=== PATIENT | female | born 1955 | race Caucasian/White ===

== ENCOUNTER 2017-12-28 06:53 | Observation (INO) | payer BC ==
[2017-12-28] MEDS ORDERED: METHYLPREDNISOLONE 125 MG INJ ONE (07:23)
[2017-12-28] MEDS ORDERED: LEVALBUTEROL 1.25 MG/3 ML NEB ONE ×3 (07:24→09:54)
--- NOTE | 2017-12-28 08:30 | RAD REPORT ---
EXAM DESCRIPTION: RAD - Chest Single View - 12/28/2017 7:48 am CLINICAL HISTORY: Wheezing, cough, shortness of breath COMPARISON: August 2015 TECHNIQUE: AP portable chest image was obtained 0744 hours . FINDINGS: Lungs are clear. No new or progressive lung parenchymal process since the 2014 study. No p eribronchial thickening seen. Heart and vasculature are normal. No measurable pleural effusion and no pneumothorax. No gross bony abnormality seen. No acute aortic findings suspected. IMPRESSION: No acute cardiopulmonary process. No significant interval changes.
[2017-12-28] MEDS ORDERED: IPRATROPIUM BROM 0.5MG/2.5ML ONE (08:51)
[2017-12-28] MEDS ORDERED: ALBUTEROL 2.5 MG/3 ML NEB SOL ONE (08:51)
--- NOTE | 2017-12-28 09:44 | ER ---
Nurse's Notes [facility] Name: Ivonne Pritchett Age: 62 yrs Sex: Female : 1955 Arrival Date: 12/28/2017 Time: 06:58 Bed 15 Private MD: Diagnosis: COPD Exacerbation;Hypoxia Presentation: 12/28 07:16 Presenting complaint: Patient states: has had "bad allergies for past week", wheezing, iw cough and SOB got worse last night, coughing up thick yellow mucous, denies fever. Transition of care: patient was not received from another setting of care. Onset of symptoms was December 21, 2017. Care prior to arrival: None. 07:16 Method Of Arrival: Ambulatory iw 07:16 Acuity: MARY 4 iw Historical: - Allergies: 07:20 NKA; iw - Home Meds: 07:20 Requip Oral [Active]; atorvastatin oral oral [Active]; irbesartan oral oral [Active]; iw Wellbutrin Oral [Active]; gabapentin oral oral [Active]; - PMHx: 07:20 Fibromyalgia; Hypertension; Restless Leg Syndrome; iw - PSHx: 07:20 Cholecystectomy; Tubal ligation; iw - Immunization history:: Adult Immunizations. - Social history:: Smoking status: Patient/guardian denies using tobacco. Screenin:29 Abuse screen: Denies threats or abuse. Denies injuries from another. Nutritional iw screening: No deficits noted. Tuberculosis screening: No symptoms or risk factors identified. Fall Risk None identified. Assessment: 07:29 General: Appears in no apparent distress. Behavior is calm, cooperative. General: iw Denies fever. Pain: Denies pain. Neuro: Level of Consciousness is awake, alert, obeys commands, Oriented to person, place, time, situation, Moves all extremities. Full function. Cardiovascular: Denies chest pain, Patient's skin is warm and dry. Respiratory: Reports shortness of breath cough that is productive, Respiratory effort is even, Respiratory pattern is regular, Breath sounds with wheezes bilaterally. GI: Abdomen is non-distended. Derm: Skin is pink, warm \\T\\ dry. normal. Musculoskeletal: Range of motion: intact in all extremities. 08:06 Reassessment: Patient appears in no apparent distress at this time. Patient and/or em family updated on plan of care and expected duration. Pain level reassessed. Patient is alert, oriented x 3, equal unlabored respirations, skin warm/dry/pink. General: Appears in no apparent distress. Behavior is calm, cooperative. Respiratory: Breath sounds with wheezes bilaterally. 09:44 Reassessment: after albuterol breathing treatment, pt ambulated to bathroom then back iw to room, became SOB with labored respirations, SpO2 dropped to 84%, Dr. Penny at bedside to assess pt, will admit for observation, new orders received, IV inserted to LAC, pt placed on 2 L NC, up to 96%. 10:50 Reassessment: Patient appears in no apparent distress at this time. Patient and/or em family updated on plan of care and expected duration. Pain level reassessed. Patient is alert, oriented x 3, equal unlabored respirations, skin warm/dry/pink. Patient states symptoms have improved. Vital Signs: 07:20 BP 151 / 90; Pulse 88; Resp 24 S; Temp 98.1(TE); Pulse Ox 93% on R/A; Weight 83.91 kg; iw Height 5 ft. 4 in. (162.56 cm); Pain 0/10; 08:01 BP 128 / 76; Pulse 75; Resp 22; Pulse Ox 97% on R/A; mh5 08:50 BP 130 / 75; Pulse 75; Resp 20; Pulse Ox 93% on R/A; em 09:42 Pulse 99; Resp 28 S; Pulse Ox 84% ; iw 09:47 Pulse 94; Resp 22 S; Pulse Ox 96% on 2 lpm NC; iw 07:20 Body Mass Index 31.75 (83.91 kg, 162.56 cm) iw Vitals: 09:42 Cardiac Rhythm Assessment Regular. iw ED Course: 06:58 Patient arrived in ED. do 07:12 Atul Penny MD is Attending Physician. kdr 07:18 Triage completed. iw 07:20 Arm band placed on. iw 07:22 Isabel Guidry, RN is Primary Nurse. iw 07:29 Patient has correct armband on for positive identification. iw 07:49 CXR XRAY In Process Unspecified. EDMS 08:29 X-ray completed. Portable x-ray completed in exam room. Patient tolerated procedure kp1 well. 09:41 Ammon Sanchez MD is Hospitalizing Provider. kdr 09:48 Inserted saline lock: 20 gauge in left antecubital area, using aseptic technique. Blood iw collected. 10:03 Initial lab(s) drawn, by ED staff, sent to lab. [facility] 11:21 No provider procedures requiring assistance completed. Patient admitted, IV remains in em place. Administered Medications: 07:28 Drug: SOLU-Medrol 125 mg Route: IM; Site: right gluteus; iw 08:48 Follow up: Response: No adverse reaction em 07:29 Drug: Xopenex (3) 1.25 mg Route: Inhalation; iw 08:48 Follow up: Response: No adverse reaction; Vomiting unchanged em 08:05 Drug: Xopenex 1.25 mg Route: Inhalation; em 08:48 Follow up: Response: No adverse reaction; Wheezing unchanged em 08:05 Drug: Xopenex 1.25 mg Route: Inhalation; em 08:49 Follow up: Response: No adverse reaction; Wheezing unchanged em 09:08 Drug: Albuterol - atroVENT (3:1) (2.5 mg - 0.5 mg) 3 ml Route: Nebulizer; em 09:54 Follow up: Response: No adverse reaction em 10:02 Drug: SOLU-Medrol 75 mg Route: IVP; Site: left antecubital; iw 11:15 Follow up: Response: No adverse reaction em 10:06 Drug: Magnesium Sulfate 1 grams Route: IVPB; Infused Over: 1 hrs; Site: left iw antecubital; 11:30 Follow up: Response: No adverse reaction; IV Status: Completed infusion; IV Intake: 50mlem 10:06 Drug: Xopenex (3) 1.25 mg Route: Inhalation; iw 11:30 Follow up: Response: No adverse reaction em Intake: 11:30 IV: 50ml; Total: 50ml. em Outcome: 09:43 Decision to Hospitalize by Provider. kdr 11:22 Admitted to Med/surg accompanied by tech, via wheelchair, room 408, with oxygen, with em chart, Report called to Che Otero RN 11:22 Condition: good 11:22 Instructed on the need for admit, Demonstrated understanding of instructions. 11:29 Patient left the ED. em Signatures: Dispatcher [employer] EDMD Atul Penny MD MD kdr Rajendra Isaac, [employer] DEVELOPER [employer] DEVELOPER em Isabel Guidry RN RN iw Ancelmo, Anna Contreras, Leeann 5 Zachary, Priya kp1 Corrections: (The following items were deleted from the chart) 07:21 07:16 Acuity: MARY 3 iw iw 08:07 08:06 Respiratory: Breath sounds with wheezes bilaterally. em em 09:48 09:44 Reassessment: after albuterol breathing treatment, pt ambulated to bathroom then iw back to room, became SOB with labored respirations, SpO2 dropped to 84%, Dr. Penny at bedside to assess pt, will admit for observation, new orders received, IV inserted to LAC iw
--- NOTE | 2017-12-28 09:44 | EDPHYS ---
Physician Documentation [facility] Name: Ivonne Pritchett Age: 62 yrs Sex: Female : 1955 Arrival Date: 12/28/2017 Time: 06:58 Bed 15 Private MD: ED Physician Atul Penny HPI: 12/28 07:29 This 62 yrs old Female presents to ER via Ambulatory with complaints of Sinus kdr Congestion, Wheezing, Breathing Difficulty. 07:29 The patient or guardian reports airway noise, cough, that is intermittent, described as kdr mild, difficulty breathing. Onset: The symptoms/episode began/occurred gradually, 1 week(s) ago, Worse last few days. Severity of symptoms: At their worst the symptoms were mild, in the emergency department the symptoms are unchanged. Modifying factors: The symptoms are alleviated by nothing, the symptoms are aggravated by exertion. Associated signs and symptoms: Pertinent positives: The patient initially had sinus congestion and post nasal drip but now she states that the cold has settled in her chest. She is having mild cough and yellow sputum with no recent fever or other associated s/s. The patient has experienced similar episodes in the past, a few times. The patient has not recently seen a physician. Historical: - Allergies: 07:20 NKA; iw - Home Meds: 07:20 Requip Oral [Active]; atorvastatin oral oral [Active]; irbesartan oral oral [Active]; iw Wellbutrin Oral [Active]; gabapentin oral oral [Active]; - PMHx: 07:20 Fibromyalgia; Hypertension; Restless Leg Syndrome; iw - PSHx: 07:20 Cholecystectomy; Tubal ligation; iw - Immunization history:: Adult Immunizations. - Social history:: Smoking status: Patient/guardian denies using tobacco. ROS: 07:29 Constitutional: Negative for fever, chills, and weight loss, Eyes: Negative for injury, kdr pain, redness, and discharge, Neck: Negative for injury, pain, and swelling, Cardiovascular: Negative for chest pain, palpitations, and edema, Abdomen/GI: Negative for abdominal pain, nausea, vomiting, diarrhea, and constipation, Back: Negative for injury and pain, : Negative for injury, bleeding, discharge, and swelling, MS/Extremity: Negative for injury and deformity, Skin: Negative for injury, rash, and discoloration, Neuro: Negative for headache, weakness, numbness, tingling, and seizure activity. Psych: Negative for depression, anxiety, suicide ideation, homicidal ideation, and hallucinations, Allergy/Immunology: Negative for hives, rash, and allergies, Endocrine: Negative for neck swelling, polydipsia, polyuria, polyphagia, and marked weight changes, Hematologic/Lymphatic: Negative for swollen nodes, abnormal bleeding, and unusual bruising. 07:29 ENT: Positive for nasal discharge, sinus pain, These ENT s/s have abated as he congestion has moved to her chest. Exam: 07:29 Constitutional: This is a well developed, well nourished patient who is awake, alert, kdr and in no acute distress. Head/Face: Normocephalic, atraumatic. Eyes: Pupils equal round and reactive to light, extra-ocular motions intact. Lids and lashes normal. Conjunctiva and sclera are non-icteric and not injected. Cornea within normal limits. Periorbital areas with no swelling, redness, or edema. ENT: Nares patent. No nasal discharge, no septal abnormalities noted. Tympanic membranes are normal and external auditory canals are clear. Oropharynx with no redness, swelling, or masses, exudates, or evidence of obstruction, uvula midline. Mucous membranes moist. Neck: Trachea midline, no thyromegaly or masses palpated, and no cervical lymphadenopathy. Supple, full range of motion without nuchal rigidity, or vertebral point tenderness. No Meningismus. Chest/axilla: Normal chest wall appearance and motion. Nontender with no deformity. No lesions are appreciated. Cardiovascular: Regular rate and rhythm with a normal S1 and S2. No gallops, murmurs, or rubs. Normal PMI, no JVD. No pulse deficits. Abdomen/GI: Soft, non-tender, with normal bowel sounds. No distension or tympany. No guarding or rebound. No evidence of tenderness throughout. Back: No spinal tenderness. No costovertebral tenderness. Full range of motion. Skin: Warm, dry with normal turgor. Normal color with no rashes, no lesions, and no evidence of cellulitis. MS/ Extremity: Pulses equal, no cyanosis. Neurovascular intact. Full, normal range of motion. Neuro: Awake and alert, GCS 15, oriented to person, place, time, and situation. Cranial nerves II-XII grossly intact. Motor strength 5/5 in all extremities. Sensory grossly intact. Cerebellar exam normal. Normal gait. Psych: Awake, alert, with orientation to person, place and time. Behavior, mood, and affect are within normal limits. 07:29 Respiratory: mild respiratory distress is noted, Respirations: labored breathing, that is mild, prolonged exhalation, shallow respirations, that is mild, tachypnea, Breath sounds: decreased breath sounds, wheezing: that is mild, is heard diffusely, Respiratory rate: 24 Vital Signs: 07:20 BP 151 / 90; Pulse 88; Resp 24 S; Temp 98.1(TE); Pulse Ox 93% on R/A; Weight 83.91 kg; iw Height 5 ft. 4 in. (162.56 cm); Pain 0/10; 08:01 BP 128 / 76; Pulse 75; Resp 22; Pulse Ox 97% on R/A; mh5 08:50 BP 130 / 75; Pulse 75; Resp 20; Pulse Ox 93% on R/A; em 09:42 Pulse 99; Resp 28 S; Pulse Ox 84% ; iw 09:47 Pulse 94; Resp 22 S; Pulse Ox 96% on 2 lpm NC; iw 07:20 Body Mass Index 31.75 (83.91 kg, 162.56 cm) iw MDM: 07:29 Data reviewed: vital signs, nurses notes, lab test result(s), radiologic studies. kdr Counseling: I had a detailed discussion with the patient and/or guardian regarding: the historical points, exam findings, and any diagnostic results supporting the discharge/admit diagnosis, radiology results, the need for outpatient follow up. 09:43 Patient medically screened. kdr 12/28 09:59 Order name: CBC with Diff kdr 12/28 09:59 Order name: Chem 7 kdr 12/28 07:18 Order name: CXR XRAY; Complete Time: 08:47 kdr Administered Medications: 07:28 Drug: SOLU-Medrol 125 mg Route: IM; Site: right gluteus; iw 08:48 Follow up: Response: No adverse reaction em 07:29 Drug: Xopenex (3) 1.25 mg Route: Inhalation; iw 08:48 Follow up: Response: No adverse reaction; Vomiting unchanged em 08:05 Drug: Xopenex 1.25 mg Route: Inhalation; em 08:48 Follow up: Response: No adverse reaction; Wheezing unchanged em 08:05 Drug: Xopenex 1.25 mg Route: Inhalation; em 08:49 Follow up: Response: No adverse reaction; Wheezing unchanged em 09:08 Drug: Albuterol - atroVENT (3:1) (2.5 mg - 0.5 mg) 3 ml Route: Nebulizer; em 09:54 Follow up: Response: No adverse reaction em 10:02 Drug: SOLU-Medrol 75 mg Route: IVP; Site: left antecubital; iw 11:15 Follow up: Response: No adverse reaction em 10:06 Drug: Magnesium Sulfate 1 grams Route: IVPB; Infused Over: 1 hrs; Site: left iw antecubital; 11:30 Follow up: Response: No adverse reaction; IV Status: Completed infusion; IV Intake: 50mlem 10:06 Drug: Xopenex (3) 1.25 mg Route: Inhalation; iw 11:30 Follow up: Response: No adverse reaction em Disposition: 12/28/17 09:43 Hospitalization ordered by Ammon Sanchez for Observation. Preliminary diagnosis are COPD Exacerbation, Hypoxia. - Bed requested for Telemetry/MedSurg (observation). - Status is Observation. em - Condition is Fair. - Problem is new. - Symptoms have improved. UTI on Admission? No Signatures: Dispatcher [employer] Atul Kramer MD MD kdr Munoz, Edgar, EMBLEM CUTTER EMBLEM CUTTER Isabel Brice RN RN iw
[2017-12-28] MEDS ORDERED: MAGNESIUM SULFATE 1 gm IVPB 1 GM/100 ML BAG IV ONE (09:55)
[2017-12-28] MEDS ORDERED: METHYLPREDNISOLONE 40 MG INJ ONE (09:55)
[2017-12-28 10:18] LABS: Potassium 3.8 mEq/L (3.6-5.0)
[2017-12-28 10:36] LABS: Absolute Lymphocytes (CBC) 1.7 K/uL (0.7-4.9); Absolute Monocytes 0.2 K/uL (0.1-1.3); Absolute Neutrophil 6.9 K/uL (1.8-8.0); Basophils % 1.1 % (0-1.3); Eosinophils % 5.6 % (0-4.4); Hematocrit 43.2 % (36.0-45.0); Lymphocytes % 17.8 % (15.3-44.8); MCH 29.6 pg (27.0-35.0); MCV 89.3 fL (80-100); Monocytes % 2.4 % (3.3-12.3); RBC Red Blood Cell Count 4.84 M/uL (3.86-4.86)
[2017-12-28] MEDS ORDERED: ONDANSETRON 4 MG/2 ML VIAL IV PRN (11:47)
[2017-12-28] MEDS ORDERED: ACETAMINOPHEN 500 MG TAB PO PRN (11:47)
[2017-12-28 12:00] VITALS: BMI 31.7
[2017-12-28] MEDS: IPRATROPIUM BROM 0.5MG/2.5ML NEB SCH ×2 (13:15→19:53)
[2017-12-28] MEDS: ALBUTEROL 2.5 MG/3 ML NEB SOL NEB SCH ×2 (13:15→19:53)
[2017-12-28] MEDS ORDERED: BENZONATATE 100 MG CAP PO PRN (15:41)
[2017-12-28] MEDS ORDERED: Levofloxacin 750mg IV 750 MG/150 ML BAG IV SCH (16:00)
[2017-12-28] MEDS ORDERED: ENOXAPARIN 40 MG/0.4 ML SQ SCH (17:00)
[2017-12-28] MEDS: METHYLPREDNISOLONE 40 MG INJ IV SCH ×2 (18:10→23:33)
[2017-12-28] MEDS: DULERA 100/5 (MOMETASONE/FORMOTEROL) INHALER IH SCH (20:49)
[2017-12-28] MEDS ORDERED: ATORVASTATIN 20 MG TAB PO SCH (21:00)
[2017-12-28] MEDS ORDERED: GABAPENTIN 300 MG CAP PO SCH (21:00)
--- NOTE | 2017-12-28 22:39 | HP ---
Date of Admission: 12/28/2017 Primary Care Physician: Stew Leyva M.D. Consultants: Yevgeniy Patton M.D., Pulmonology. Chief Complaint: Shortness of breath. Code Status: Full. History Of Present Illness: The patient is a 62-year-old female with past medical history of fibromy algia, restless legs syndrome, hypertension, dyslipidemia, COPD, who was in her usual state of health until 3 weeks prior to admission when the patient had sinus-type infection with postnasal drip and s ubsequently had worsening shortness of breath, which was progressive, moderate. The patient denies a ny fevers, chills, or any ill contacts. She does report some cough with scant clear sputum productio n. The patient states that her inhaler was not helping her and due to worsening of her symptoms, cam e in to the ER for further evaluation. Her symptoms are aggravated by exertion, improved with rest. Upon arrival, her vital signs were stable. However, with exertion, she was hypoxic around 84%. Lab work revealed normal WBC count. Her chest x-ray showed no acute cardiopulmonary process. The patie nt was given breathing treatments and then referred for admission. The patient was seen in the ER. She was awake, alert, oriented x3, in some mild respiratory distress. Past Medical History: Hypertension, dyslipidemia, fibromyalgia, restless legs syndrome, COPD. Past Surgical History: Cholecystectomy, tubal ligation. Allergies: NO KNOWN DRUG ALLERGIES. Medications: Reviewed. Family History: The patient's mom was diabetic, had a stroke, at age of 61. Father of zach g cancer at age of 62. Three brothers and one sister in [facility]. No history of premature wesley nary artery disease in the immediate family. Social History: The patient is , does have significant other. Smoked for about 11 years. Q uit at age of 26, has not smoked since. Drinks alcohol socially. Works at [employer]. Has 1 son and 2 daughters. Denies any illicit drug use. Does not require any assistive ambulatory devices. Review of Systems: An 11-point system reviewed, negative except as per HPI. Physical Examination: Vital Signs: Temperature 98.1, heart rate 88, blood pressure 151/90, respirations 24, O2 93% on 2 L via nasal cannula. General: Awake, alert, oriented x3, in some mild distress. Elderly female, somewhat ill-appearing, obese, BMI 31. HEENT: Normocephalic and atraumatic. PERRLA. EOMI. Moist mucous membranes. Oroph arynx is clear. Conjunctivae are anicteric. Neck: Supple. No JVD. Trachea midline. CV: S1, S2. Peripheral pulses are present bilaterally. No murmurs and regular rate and rhythm. Respiratory: Diminished breath sounds. Wheezing heard throughout. The patient is slightly tachypne ic. Use of accessory muscles is present. Gastrointestinal: Abdomen is soft, nontender and nondistended. Positive bowel sounds. No guarding or rigidity. No palpable masses. Extremities: No clubbing, cyanosis, or edema. No calf tenderness. Neuro: Cranial nerves 2 through 12 intact grossly. No focal neurological deficit. Strength is 5/5 bilateral lower extremities. Sensation intact to light touch. Skin: No rashes. Normal skin turgor. Psych: Mood is okay. Affect is full. Insight and judgment are good. Laboratory Data: Sodium 139, potassium 3.8, chloride 106, CO2 27, BUN 9, creatinine 0.81, glucose 13 8, calcium 8.8. WBC 9.5, H and H 14.3 and 43.2, platelets 238, neutrophils 73%. Chest x-ray, person ally reviewed shows no acute cardiopulmonary process. Assessment And Plan: A 62-year-old female with: 1.Acute chronic obstructive pulmonary disease exacerbation with bronchitis. We will continue with b reathing treatments, IV steroids. We will consult Pulmonology. We will place on empiric antibiotics . We will obtain blood cultures, sputum cultures. 2.Obesity, BMI 31.8, counseled. 3.Essential hypertension. We will resume home medications as appropriate. 4.Dyslipidemia. 5.Restless legs syndrome. 6.Fibromyalgia. 7.Gastrointestinal and deep venous thrombosis prophylaxis with proton pump inhibitor and Lovenox. Plan: Admit the patient to Med-Surg, [facility] as observation. MIGDALIA Voice ID: [id number]
[2017-12-29] MEDS: IPRATROPIUM BROM 0.5MG/2.5ML NEB SCH ×3 (01:25→13:55)
[2017-12-29] MEDS: ALBUTEROL 2.5 MG/3 ML NEB SOL NEB SCH ×3 (01:25→13:55)
[2017-12-29] MEDS: METHYLPREDNISOLONE 40 MG INJ IV SCH (05:42)
[2017-12-29 06:01] LABS: Potassium 4.5 mEq/L (3.6-5.0)
[2017-12-29 06:24] LABS: Absolute Monocytes 0.2 K/uL (0.1-1.3); Absolute Neutrophil 13.8 K/uL (1.8-8.0); Basophils % 0.1 % (0-1.3); Hematocrit 39.9 % (36.0-45.0); Lymphocytes % 6.8 % (15.3-44.8); MCH 29.1 pg (27.0-35.0); MCV 88.9 fL (80-100); Monocytes % 1.6 % (3.3-12.3); RBC Red Blood Cell Count 4.48 M/uL (3.86-4.86)
[2017-12-29 08:40] LABS: Platelet Estimate ADEQ
[2017-12-29] MEDS: DULERA 100/5 (MOMETASONE/FORMOTEROL) INHALER IH SCH (08:43)
[2017-12-29] MEDS ORDERED: IRBESARTAN 150 MG TAB PO SCH (09:00)
[2017-12-29 09:07] LABS: Blood Morphology Comment NOT SEEN (NOT SEEN)
--- NOTE | 2017-12-29 09:52 | P.DS ---
Admission Date: 12/28/17 (Hospitalist) Discharge Date: 12/29/17 Disposition: ROUTINE DISCHARGE Discharge Condition: FAIR Brief History of Present Illness: Patient is 62 years of age admitted with shortness of breath for the past week she uses inhaler on an intermittent basis quit smoking at the age of 26 patient was wheezing short short of breath Hospital Course: Patient did well during the course of the stay complained of persistent coughing spells chest x-ray clear labs all unremarkable to be discharged home on a bronchodilator may have obstructive airways disease most likely asthma no significant history of smoking chest x-ray clear At the time of discharge vital signs all stable she was alert responsive oriented cooperative chest shows some bilateral rhonchi cardiovascular small stools normal abdomen soft extremities no edema Vital Signs/Physical Exam: Temp Pulse Resp BP Pulse Ox 97.4 F 88 18 141/72 H 96 12/29/17 08:00 12/29/17 08:42 12/29/17 08:00 12/29/17 08:42 12/29/17 08:00 Laboratory Data at Discharge: WBC 15.0 K/uL (4.3-10.9) H D 12/29/17 05:17 Hgb 13.0 g/dL (12.0-15.0) 12/29/17 05:17 Hct 39.9 % (36.0-45.0) 12/29/17 05:17 Plt Count 345 K/uL (152-406) 12/29/17 05:17 Sodium 136 mEq/L (135-145) 12/29/17 05:17 Potassium 4.5 mEq/L (3.6-5.0) 12/29/17 05:17 BUN 13 mg/dL (6-20) 12/29/17 05:17 Creatinine 0.76 mg/dL (0.44-1.00) 12/29/17 05:17 Glucose 170 mg/dL (65-120) H 12/29/17 05:17 Home Medications: Atorvastatin Calcium [Lipitor*] 20 mg PO BEDTIME 09/17/13 Bupropion HCl [Wellbutrin*] 12/28/17 Gabapentin 600 mg PO BEDTIME 12/28/17 Irbesartan [Avapro] 75 mg PO DAILY 12/28/17 Benzonatate [Tessalon Perle] 100 mg PO TID PRN #21 cap 12/29/17 Mometasone/Formoterol [Dulera 100 Mcg/5 Mcg Inhaler] 2 puff IH BID #1 inhaler Prednisone [Deltasone*] 10 mg PO BID #14 tab 12/29/17 New Medications: Benzonatate [Tessalon Perle] 100 mg PO TID PRN #21 cap PRN Reason: Cough Mometasone/Formoterol [Dulera 100 Mcg/5 Mcg Inhaler] 2 puff IH BID #1 inhaler Prednisone [Deltasone*] 10 mg PO BID #14 tab Patient Discharge Instructions: Patient can be discharged home if his room air sat is greater than 88% she is to follow up with me as an outpatient please give patient these sample of the Dulera that she was prescribed in the hospital and fax the prescriptions to the pharmacy Diet: Regular Activity: Ad darrel
[2017-12-29 09:54] VITALS: O2SAT 93
[2017-12-29 15:56] VITALS: BP 133/63; TEMP 98.2
[2017-12-29] MEDS ORDERED: METHYLPREDNISOLONE 40 MG INJ IV SCH (17:00)
== END 2017-12-29 16:02 | disposition home or self-care (01) ==
LOC: ER 06:53 → ERHOLD 09:56 → 4TH 11:21
PROVIDERS: ADMIT Family Medicine; ATTEND Family Medicine
DX: J44.0 Chronic obstructive pulmonary disease with (acute) lower respiratory infection (principal); J20.9 Acute bronchitis, unspecified; J44.1 Chronic obstructive pulmonary disease with (acute) exacerbation; M79.7 Fibromyalgia; G25.81 Restless legs syndrome; I10 Essential (primary) hypertension; E78.5 Hyperlipidemia, unspecified; J44.9 Chronic obstructive pulmonary disease, unspecified; Z87.891 Personal history of nicotine dependence
CPT/HCPCS: 36415; 71045; 80048; 85025; 94640; 96365; 96372; 96375; 99285; G0378; J1650; J2920; J2930; J3475; J7606

== ENCOUNTER 2019-05-16 06:19 | Observation (INO) | payer BC ==
[2019-05-16] MEDS ORDERED: METHYLPREDNISOLONE 125 MG INJ ONE (06:27)
[2019-05-16] MEDS ORDERED: NA CHLORIDE 0.9% 1,000 ML ONE (06:28)
[2019-05-16] MEDS ORDERED: IPRATROPIUM BROM 0.5MG/2.5ML ONE ×2 (06:28→07:38)
[2019-05-16] MEDS ORDERED: ALBUTEROL 2.5 MG/3 ML NEB SOL ONE ×2 (06:28→07:38)
[2019-05-16] MEDS ORDERED: MAGNESIUM SULFATE 1 gm IVPB 1 GM/100 ML BAG IV ONE ×2 (06:31→08:21)
[2019-05-16] MEDS ORDERED: LEVALBUTEROL 0.63 MG/3 ML NEB ONE (06:31)
[2019-05-16 06:46] LABS: Absolute Lymphocytes (CBC) 2.3 K/uL (0.7-4.9); Basophils % 0.8 % (0-1.3); Hematocrit 43.3 % (36.0-45.0); Lymphocytes % 22.8 % (15.3-44.8); MPV 8.8 fL (7.6-11.3); RBC Red Blood Cell Count 4.85 M/uL (3.86-4.86)
[2019-05-16 07:04] LABS: BUN Blood Urea Nitrogen 10 mg/dL (7-18); Bicarbonate 30 mmol/L (21-32); Glucose Level 109 mg/dL (74-106); NT PRO-BNP 220 pg/mL (<125); Potassium 4.2 mmol/L (3.5-5.1); Sodium Level 143 mmol/L (136-145); Troponin (Emerg Dept Use Only) < 0.02 ng/mL (0.0-0.045)
--- NOTE | 2019-05-16 08:16 | ER ---
Nurse's Notes [facility] Name: Ivonne Pritchett Age: 63 yrs Sex: Female : 1955 Arrival Date: 05/16/2019 Time: 06:26 Bed 18 Private MD: Diagnosis: Chronic obstructive pulmonary disease with (acute) exacerbation;Hypoxemia Presentation: 05/16 06:30 Presenting complaint: Patient states: she started having difficulty breathing which has bb gotten worse. Transition of care: patient was not received from another setting of care. Onset of symptoms was May 15, 2019. Risk Assessment: Do you want to hurt yourself or someone else? Patient reports no desire to harm self or others. Initial Sepsis Screen: Does the patient meet any 2 criteria? No. Patient's initial sepsis screen is negative. Does the patient have a suspected source of infection? No. Patient's initial sepsis screen is negative. Care prior to arrival: None. 06:30 Method Of Arrival: Ambulatory bb 06:30 Acuity: MARY 2 bb Triage Assessment: 06:43 General: Appears distressed, Behavior is calm, cooperative. Pain: Denies pain. Neuro: bb Level of Consciousness is awake, alert, obeys commands, Oriented to person, place, time, situation. Respiratory: Respiratory effort is labored, Breath sounds with wheezes bilaterally. Historical: - Allergies: 06:43 NKA; bb - Home Meds: 06:47 amlodipine 2.5 mg tab 1 tab once daily [Active]; atorvastatin Oral [Active]; Cymbalta cc3 60 mg Oral cpDR 1 cap once daily [Active]; gabapentin 600 mg Oral tab 1 tab nightly [Active]; gabapentin Oral [Active]; irbesartan Oral [Active]; Requip Oral [Active]; Wellbutrin Oral [Active]; - PMHx: 06:43 Fibromyalgia; Hypertension; restless leg syndrome; bb - PSHx: 06:43 Tubal ligation; Cholecystectomy; bb - Immunization history:: Adult Immunizations up to date. - Social history:: Smoking status: Patient/guardian denies using tobacco. - Family history:: not pertinent. - Ebola Screening: : No symptoms or risks identified at this time. - Hospitalizations: : No recent hospitalization is reported. Screenin:45 Abuse screen: Denies threats or abuse. Denies injuries from another. Nutritional cc3 screening: No deficits noted. Tuberculosis screening: No symptoms or risk factors identified. Fall Risk Ambulatory Aid- None/Bed Rest/Nurse Assist (0 pts). Gait- Normal/Bed Rest/Wheelchair (0 pts) Mental Status- Oriented to own ability (0 pts). Assessment: 06:30 General: Appears distressed, uncomfortable, Behavior is calm, cooperative, appropriate cc3 for age. Pain: Denies pain. Neuro: Level of Consciousness is awake, alert, obeys commands, Oriented to person, place, time, situation, Appropriate for age Professional Athlete are equal bilaterally Moves all extremities. Full function Speech is normal, Facial symmetry appears normal, Pupils are PERRLA, Intact. Cardiovascular: Heart tones S1 S2 present Capillary refill < 3 seconds Patient's skin is warm and dry. Rhythm is sinus rhythm. Respiratory: Airway is patent Respiratory effort is labored, Respiratory pattern is regular, symmetrical, Breath sounds with wheezes bilaterally. GI: Abdomen is round non-distended. : No signs and/or symptoms were reported regarding the genitourinary system. EENT: No signs and/or symptoms were reported regarding the EENT system. Derm: Skin is intact, is healthy with good turgor, Skin is pink, warm \T\ dry. normal. Musculoskeletal: Circulation, motion, and sensation intact. Range of motion: intact in all extremities. 07:00 Reassessment: Patient appears in no apparent distress at this time. Patient and/or em family updated on plan of care and expected duration. Pain level reassessed. Patient is alert, oriented x 3, equal unlabored respirations, skin warm/dry/pink. Patient states feeling better. Patient states symptoms have improved. 07:15 Reassessment: Dr. Franco at bedside, ordered to d/c bipap and trial pt on RA, remains em 93-95% on RA while speaking, pt request to go home, Dr. Franco recommends being admitted, will continue to monitor. 07:40 Reassessment: pt ambulated to restroom, returned with SOB and SPO2 86% RA, breathing em treatment initiated, SPO2 97% with neb. mask. 08:25 Reassessment: Patient appears in no apparent distress at this time. Dr. Dietz at em bedside. 09:20 Reassessment: Patient appears in no apparent distress at this time. Patient and/or em family updated on plan of care and expected duration. Pain level reassessed. Patient states symptoms have improved. Vital Signs: 06:30 BP 193 / 124; Pulse 98; Resp 24 S; Temp 98.2(O); Pulse Ox 86% on R/A; Weight 74.84 kg bb (R); Height 5 ft. 4 in. (162.56 cm) (R); Pain 0/10; 06:45 BP 145 / 85; Pulse 97; Resp 20 S; Pulse Ox 99% on BiPAP; bb 07:00 BP 113 / 82; Pulse 91; Resp 22 S; Pulse Ox 98% on R/A; Pain 0/10; em 07:59 BP 127 / 92; Pulse 79; Resp 18; Pulse Ox 100% on Nebulizer Mask; em 09:00 BP 137 / 73; Pulse 93; Resp 24; Pulse Ox 93% on 2 lpm NC; Pain 0/10; em 10:17 BP 138 / 72; Pulse 88; Resp 22; Pulse Ox 93% on 2 lpm NC; Pain 0/10; em 06:30 Body Mass Index 28.32 (74.84 kg, 162.56 cm) ED Course: 06:26 Patient arrived in ED. bb 06:29 Mabel Benton FNP-C [facility]. snw 06:29 Vladimir Franco MD is Attending Physician. snw 06:30 Arm band placed on Patient placed in an exam room, on a stretcher, on oxygen, on bb school bus monitor, on pulse oximetry, respiratory paged for Bipap. 06:30 Inserted saline lock: 20 gauge in right antecubital area, using aseptic technique. cc3 Blood collected. inserted by [facility]. 06:42 Triage completed. bb 06:45 Arm band placed on right wrist. EKG completed in triage. Results shown to MD. cc3 06:45 Patient has correct armband on for positive identification. Placed in gown. Bed in low cc3 position. Call light in reach. Side rails up X2. desk monitor on. Pulse ox on. NIBP on. 06:58 Rajendra Isaac, CHRISSIE is Primary Nurse. em 07:00 Report given to CHRISSIE Drew. cc3 07:10 XRAY CXR (1 view) In Process Unspecified. EDMS 07:40 Attending Physician role handed off by Vladimir Franco MD selena 07:40 Librado Dover MD is Attending Physician. selena 08:12 Neli Lowry MD is Hospitalizing Provider. sleena 08:13 Hospitalizing Provider role handed off by Neli Lowry MD selena 08:13 Yevgeniy Patton MD is Hospitalizing Provider. selena 10:16 No provider procedures requiring assistance completed. Patient admitted, IV remains in em place. Administered Medications: 06:30 Drug: SOLU-Medrol 125 mg Route: IVP; Site: right antecubital; bb 07:00 Follow up: Response: No adverse reaction em 06:30 Drug: Xopenex (3) 1.25 mg Route: Inhalation; bb 07:00 Follow up: Response: No adverse reaction; Marked relief of symptoms em 06:30 Drug: AtroVENT Aerosol 0.5 mg Route: Inhalation; bb 07:00 Follow up: Response: No adverse reaction; Marked relief of symptoms em 06:30 Drug: NS 0.9% 500 ml Route: IV; Rate: bolus; Site: right antecubital; bb 07:15 Follow up: IV Status: Completed infusion; IV Intake: 500ml em 06:35 Drug: Magnesium Sulfate 1 grams Route: IVPB; Infused Over: 1 hrs; Site: right bb antecubital; 07:33 Follow up: Response: No adverse reaction; IV Status: Completed infusion; IV Intake: em 100ml 07:45 Drug: Xopenex 1.25 mg Route: Inhalation; em 07:45 Drug: AtroVENT Aerosol 0.5 mg Route: Inhalation; em 08:20 Follow up: Response: No adverse reaction; Marked relief of symptoms em 08:32 Drug: Decadron - Dexamethasone 10 mg Route: IVP; Site: right antecubital; aa5 09:21 Follow up: Response: No adverse reaction em 08:34 Drug: levofloxacin 500 mg Volume: 100 ml; Route: IVPB; Infused Over: 60 mins; Site: em right antecubital; 10:21 Follow up: Response: No adverse reaction; IV Status: Completed infusion; IV Intake: em 100ml 08:34 Drug: Xopenex 2.5 mg Route: Inhalation; em 08:50 Follow up: Response: No adverse reaction; Marked relief of symptoms em 08:34 Drug: Magnesium Sulfate 1 grams Route: IVPB; Infused Over: 1 hrs; Site: right em antecubital; 10:21 Follow up: Response: No adverse reaction; IV Status: Completed infusion; IV Intake: em 100ml Intake: 07:15 IV: 500ml; Total: 500ml. em 07:33 IV: 100ml; Total: 600ml. em 10:21 IV: 100ml; Total: 700ml. em 10:21 IV: 100ml; Total: 800ml. em Outcome: 08:13 Decision to Hospitalize by Provider. [facility] 10:16 Admitted to Tele accompanied by tech, via stretcher, room 410, with oxygen, with chart, em Report called to SONIDO Hernández 10:17 Condition: good em 10:17 Instructed on the need for admit, Demonstrated understanding of instructions. 10:24 Patient left the ED. em Signatures: Dispatcher [employer] EDLibrado Valdivia MD MD cha Therrien, Shelly, ORAL AND MAXILLOFACIAL SURGEON-C ORAL AND MAXILLOFACIAL SURGEON-Csnw Rajendra Isaac, PULL THROUGH HOOKER PULL THROUGH HOOKER em Katelin Gerard RN RN bb Nieto, Roman, MD MD rn Calderon, Audri, RN RN aa5 Michelle Moulton cc3 Corrections: (The following items were deleted from the chart) 06:47 06:43 Home Meds: Unable to obtain; estella cc3 10:17 10:16 Admitted to Tele accompanied by tech, via stretcher, room 410, with oxygen, with em chart, Report called to SONIDO Hernández em
--- NOTE | 2019-05-16 08:19 | EDPHYS ---
Physician Documentation [facility] Name: Ivonne Pritchett Age: 63 yrs Sex: Female : 1955 Arrival Date: 05/16/2019 Time: 06:26 Bed 18 Private MD: ED Physician Librado Dover HPI: 05/16 06:33 This 63 yrs old Female presents to ER via Unassigned with complaints of sob. rn 06:33 The patient has shortness of breath at rest. Onset: The symptoms/episode began/occurred rn yesterday. Duration: The symptoms are continuous. The patient's shortness of breath is aggravated by coughing, exertion, light activity, talking, walking. Associated signs and symptoms: Pertinent positives: non-productive cough, Pertinent negatives: fever, hemoptysis. Severity of symptoms: At their worst the symptoms were moderate in the emergency department the symptoms are unchanged. The patient has experienced similar episodes in the past. Patient has COPD, increased sob and cough since yesterday, at work they have been working on floors and thinks got irritated. + wheezing. NO hemoptysis. No hx of dvt/PE. Not on oxygen at home. S/p abx for pneumonia 1 month ago. . Historical: - Allergies: 06:43 NKA; bb - Home Meds: 06:47 amlodipine 2.5 mg tab 1 tab once daily [Active]; atorvastatin Oral [Active]; Cymbalta cc3 60 mg Oral cpDR 1 cap once daily [Active]; gabapentin 600 mg Oral tab 1 tab nightly [Active]; gabapentin Oral [Active]; irbesartan Oral [Active]; Requip Oral [Active]; Wellbutrin Oral [Active]; - PMHx: 06:43 Fibromyalgia; Hypertension; restless leg syndrome; bb - PSHx: 06:43 Tubal ligation; Cholecystectomy; bb - Immunization history:: Adult Immunizations up to date. - Social history:: Smoking status: Patient/guardian denies using tobacco. - Family history:: not pertinent. - Ebola Screening: : No symptoms or risks identified at this time. - Hospitalizations: : No recent hospitalization is reported. ROS: 06:33 Constitutional: Negative for fever, chills, and weight loss, Eyes: Negative for injury, rn pain, redness, and discharge, Neck: Negative for injury, pain, and swelling, Cardiovascular: Negative for chest pain, palpitations, and edema, Respiratory: Negative for pleuritic chest pain Abdomen/GI: Negative for abdominal pain, nausea, vomiting, diarrhea, and constipation, MS/Extremity: Negative for injury and deformity, Skin: Negative for injury, rash, and discoloration, Neuro: Negative for headache, weakness, numbness, tingling, and seizure. Exam: 06:33 Constitutional: This is a well developed, well nourished patient who is awake, alert, rn moderate respiratory distress. Head/Face: Normocephalic, atraumatic. Eyes: Pupils equal round and reactive to light, extra-ocular motions intact. ENT: Dry MM, no stridor Cardiovascular: Tachycardic, regular, No pulse deficits. Respiratory: + bilateral diffuse wheezing, speaking 3 word sentences, labored Abdomen/GI: soft, non-tender Skin: Warm, dry MS/ Extremity: Pulses equal, no cyanosis. Neurovascular intact. Full, normal range of motion. Equal circumference. Neuro: Awake and alert, GCS 15, oriented to person, place, time, and situation. Vital Signs: 06:30 BP 193 / 124; Pulse 98; Resp 24 S; Temp 98.2(O); Pulse Ox 86% on R/A; Weight 74.84 kg bb (R); Height 5 ft. 4 in. (162.56 cm) (R); Pain 0/10; 06:45 BP 145 / 85; Pulse 97; Resp 20 S; Pulse Ox 99% on BiPAP; bb 07:00 BP 113 / 82; Pulse 91; Resp 22 S; Pulse Ox 98% on R/A; Pain 0/10; em 07:59 BP 127 / 92; Pulse 79; Resp 18; Pulse Ox 100% on Nebulizer Mask; em 09:00 BP 137 / 73; Pulse 93; Resp 24; Pulse Ox 93% on 2 lpm NC; Pain 0/10; em 10:17 BP 138 / 72; Pulse 88; Resp 22; Pulse Ox 93% on 2 lpm NC; Pain 0/10; em 06:30 Body Mass Index 28.32 (74.84 kg, 162.56 cm) MDM: 06:38 Patient medically screened. rn 07:07 Differential diagnosis: Chronic Obstructive Pulmonary Disease Myocardial Infarction rn pneumonia, Pneumothorax pulmonary edema, Pulmonary Embolism. Data reviewed: vital signs, nurses notes, lab test result(s), EKG, radiologic studies, plain films, and as a result, I will admit patient. Counseling: I had a detailed discussion with the patient and/or guardian regarding: the historical points, exam findings, and any diagnostic results supporting the discharge/admit diagnosis, lab results, radiology results, the need for further work-up and treatment in the hospital. Response to treatment: the patient's symptoms have markedly improved after treatment, and as a result, I will admit patient. Admission orders: after a detailed discussion of the patient's condition and case, the admit orders are written by me. ED course: Pt hypoxic, O2 sat 84% upon arrival, not on home O2, will admit for COPD exacerbation and oxygen requirement, improved on Bipap.. 07:07 ED course: Pt does not want to be admitted at this point, requests longer observation rn period in ER given her insurance might not cover short stay in hospital. Will give another breathing treatment and reassess, will pass onto Dr. Dover.. 05/16 06:31 Order name: Blood Culture Adult (2) rn 05/16 06:31 Order name: BMP; Complete Time: 07:06 rn 05/16 06:31 Order name: CBC with Diff; Complete Time: 06:56 rn 05/16 06:31 Order name: D-Dimer; Complete Time: 07:06 rn 05/16 06:31 Order name: NT PRO-BNP; Complete Time: 07:06 rn 05/16 06:31 Order name: Troponin (emerg Dept Use Only); Complete Time: 07:06 rn 05/16 06:31 Order name: BIPAP rn 05/16 06:31 Order name: XRAY CXR (1 view) rn 05/16 09:29 Order name: Basic Metabolic Panel EDOH 05/16 09:29 Order name: Basic Metabolic Panel EDOH 05/16 09:29 Order name: CBC with Automated Diff EDOH 05/16 09:29 Order name: CBC with Automated Diff EDOH 05/16 09:31 Order name: ABG Arterial Blood Gas EDOH 05/16 06:31 Order name: Call RT; Complete Time: 07:08 rn 05/16 06:31 Order name: EKG; Complete Time: 06:33 rn 05/16 06:31 Order name: Cardiac monitoring; Complete Time: 06:41 rn 05/16 06:31 Order name: EKG - Nurse/Tech; Complete Time: 06:41 rn 05/16 06:31 Order name: IV Saline Lock; Complete Time: 06:41 rn 05/16 09:29 Order name: Regular EDMS 05/16 06:31 Order name: Labs collected and sent; Complete Time: 06:41 rn 05/16 06:31 Order name: O2 Per Protocol; Complete Time: 06:41 rn 05/16 06:31 Order name: O2 Sat Monitoring; Complete Time: 06:41 rn Administered Medications: 06:30 Drug: SOLU-Medrol 125 mg Route: IVP; Site: right antecubital; bb 07:00 Follow up: Response: No adverse reaction em 06:30 Drug: Xopenex (3) 1.25 mg Route: Inhalation; bb 07:00 Follow up: Response: No adverse reaction; Marked relief of symptoms em 06:30 Drug: AtroVENT Aerosol 0.5 mg Route: Inhalation; bb 07:00 Follow up: Response: No adverse reaction; Marked relief of symptoms em 06:30 Drug: NS 0.9% 500 ml Route: IV; Rate: bolus; Site: right antecubital; bb 07:15 Follow up: IV Status: Completed infusion; IV Intake: 500ml em 06:35 Drug: Magnesium Sulfate 1 grams Route: IVPB; Infused Over: 1 hrs; Site: right bb antecubital; 07:33 Follow up: Response: No adverse reaction; IV Status: Completed infusion; IV Intake: em 100ml 07:45 Drug: Xopenex 1.25 mg Route: Inhalation; em 07:45 Drug: AtroVENT Aerosol 0.5 mg Route: Inhalation; em 08:20 Follow up: Response: No adverse reaction; Marked relief of symptoms em 08:32 Drug: Decadron - Dexamethasone 10 mg Route: IVP; Site: right antecubital; aa5 09:21 Follow up: Response: No adverse reaction em 08:34 Drug: levofloxacin 500 mg Volume: 100 ml; Route: IVPB; Infused Over: 60 mins; Site: em right antecubital; 10:21 Follow up: Response: No adverse reaction; IV Status: Completed infusion; IV Intake: em 100ml 08:34 Drug: Xopenex 2.5 mg Route: Inhalation; em 08:50 Follow up: Response: No adverse reaction; Marked relief of symptoms em 08:34 Drug: Magnesium Sulfate 1 grams Route: IVPB; Infused Over: 1 hrs; Site: right em antecubital; 10:21 Follow up: Response: No adverse reaction; IV Status: Completed infusion; IV Intake: em 100ml Disposition: 05/16/19 08:13 Hospitalization ordered by Yevgeniy Patton for Inpatient Admission. Preliminary diagnosis are Chronic obstructive pulmonary disease with (acute) exacerbation, Hypoxemia. - Bed requested for Telemetry/MedSurg (Inpatient). - Status is Inpatient Admission. em - Condition is Stable. - Problem is new. - Symptoms have improved. UTI on Admission? No Signatures: Dispatcher [employer] Sue Bush RN RN dw Anderson, Corey, MD MD cha Munoz, Edgar, HUMAN RESOURCES CLERK HUMAN RESOURCES CLERK em Katelin Gerard RN RN bb Nieto, Roman, MD MD rn Calderon, Audri, RN RN aa5 Kala Granados Charlene cc3 Corrections: (The following items were deleted from the chart) 06:47 06:43 Home Meds: Unable to obtain; estella cc3 08:13 08:13 Hospitalization Ordered by Neli Lowry MD for Inpatient Admission. Preliminary selena diagnosis is Chronic obstructive pulmonary disease with (acute) exacerbation; Hypoxemia. Bed requested for Telemetry/MedSurg (Inpatient). Status is Inpatient Admission. Condition is Stable. Problem is new. Symptoms have improved. UTI on Admission? NoShante walters 10:01 08:13 05/16/2019 08:13 Hospitalization Ordered by Yevgeniy Patton MD for Inpatient dw Admission. Preliminary diagnosis is Chronic obstructive pulmonary disease with (acute) exacerbation; Hypoxemia. Bed requested for Telemetry/MedSurg (Inpatient). Status is Inpatient Admission. Condition is Stable. Problem is new. Symptoms have improved. UTI on Admission? NoShante walters 10:24 10:01 05/16/2019 08:13 Hospitalization Ordered by Yevgeniy Patton MD for Inpatient em Admission. Preliminary diagnosis is Chronic obstructive pulmonary disease with (acute) exacerbation; Hypoxemia. Bed requested for Telemetry/MedSurg (Inpatient). Status is Inpatient Admission. Condition is Stable. Problem is new. Symptoms have improved. UTI on Admission? No. simba
[2019-05-16] MEDS ORDERED: Levofloxacin500mg IV 500 MG/100 ML BAG IV ONE (08:21)
[2019-05-16] MEDS ORDERED: LEVALBUTEROL 1.25 MG/3 ML NEB ONE (08:21)
[2019-05-16] MEDS ORDERED: dexAMETHasone 10 MG/ML VIAL ONE (08:21)
[2019-05-16] MEDS ORDERED: ALBUTEROL 2.5 MG/3 ML NEB SOL NEB PRN (09:17)
[2019-05-16] MEDS ORDERED: ACETAMINOPHEN 500 MG TAB PO PRN (09:17)
--- NOTE | 2019-05-16 09:25 | P.HP ---
Certification for Inpatient With expected LOS: <2 Midnights Patient will require the following post-hospital care: None Practitioner: I am a practitioner with admitting privileges, knowledge of patient current condition, hospital course, and medical plan of care. 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 Patient does take Symbicort at home on a daily basis last flare up was a month ago Allergies No Known Allergies Allergy (Verified 09/17/13 22:55) Home Medications: Gabapentin 600 mg PO BID 12/28/17 buPROPion HCl [Wellbutrin*] 150 mg PO BID 12/28/17 Candesartan Cilexetil 32 mg PO DAILY 05/16/19 Mometasone/Formoterol [Dulera 100 Mcg/5 Mcg Inhaler] 2 puff IH DAILY 05/16/19 Ropinirole HCl 0.5 mg PO DAILY 05/16/19 hydrOXYzine HCl [Hydroxyzine HCl] 25 mg PO BID 05/16/19 Umeclidinium [place] [Incruse Ellipta] 62.5 mcg IH DAILY #1 blst.w.dev 05/17/19 predniSONE [Deltasone*] 10 mg PO BID #20 tab 05/17/19 - Past Medical/Surgical History Diabetic: No -: diverticulitis -: fibromyalgia -: htn, -: high cholesterol -: RLS -: zackary -: tubal ligation -: "pelvic prolapse surgery" - Family History Father -: Hypertension, Cancer Mother -: Hypertension, Diabetes, Stroke Brother -: Hypertension, Stroke - Social History Alcohol use: Yes CD- Drugs: No Caffeine use: Yes Review of Systems 10-point ROS is otherwise unremarkable Physical Examination - Vital Signs Temperature: 97.3 F Blood Pressure: 138/77 Pulse: 74 Respirations: 18 Pulse Ox (%): 94 - Physical Exam General: Alert, Oriented x3, Moderate distress Neck: Supple Respiratory: Expiratory wheezes Cardiovascular: No edema, Regular rate/rhythm, Normal S1 S2 Gastrointestinal: Normal bowel sounds, Soft and benign Musculoskeletal: No clubbing, No swelling - Studies Laboratory Data (last 24 hrs) 05/16/19 06:35: WBC 10.2, Hgb 14.6, Hct 43.3, Plt Count 379 05/16/19 06:35: Sodium 143, Potassium 4.2, BUN 10, Creatinine 0.97, Glucose 109 H Assessment and Plan - Problems (Diagnosis) (1) Asthma exacerbation Current Visit: Yes Status: Acute Plan: Patient is 63 years of age admitted with worsening dyspnea I suspect that she has asthma patient does take Symbicort at home last flare up was about a month ago she takes Symbicort once a day she is symptomatic on a daily basis the chest x-rays clear chemistries unremarkable. She will need better control over asthma on this time aggressive bronchodilator therapy with steroids patient has problems taking an inhaler twice a day I recommend high-dose Breo 200 mcg once a day outpatient pulmonary function testing Qualifiers: Asthma severity: moderate - Advance Directives Does patient have a Living Will: No Does patient have a Durable POA for Healthcare: No
[2019-05-16 09:48] LABS: Arterial Blood Carboxyhemoglob 0.8 % (0-1.5); Blood Gas Oxyhemoglobin 90.7 % (94-97); Blood O2 Saturation 92.1 % (92-98.5)
--- NOTE | 2019-05-16 10:12 | RAD REPORT ---
EXAM DESCRIPTION: [place] Single View05/16/2019 7:07 am CLINICAL HISTORY: sob COMPARISON: March 17 2019 FINDINGS: The lungs are hyperaerated. The lungs appear clear of acute infiltrate. The heart is normal size IMPRESSION: No acute abnormalities displayed
[2019-05-16] MEDS: ARFORMOTEROL TARTRATE 15 MCG/2 ML VIAL.NEB NEB SCH ×2 (10:58→19:50)
[2019-05-16 11:04] VITALS: BMI 29.0
[2019-05-16] MEDS: IPRATROPIUM BROM 0.5MG/2.5ML NEB SCH ×2 (13:31→19:50)
[2019-05-16 14:14] LABS: Urine Appearance CLEAR; Urine Bilirubin NEGATIVE (NEG); Urine Blood NEGATIVE (NEG); Urine Color YELLOW; Urine Glucose 1+ (NEG); Urine Protein NEGATIVE (NEG); Urine Urobilinogen 0.2 mg/dL (0.2-1.0); Urine pH 5.5 (5.0-7.0)
[2019-05-16 14:27] LABS: Urine Bacteria <20 /HPF (<20); Urine Culture Reflex Order NOT NEEDED; Urine RBC NONE SEEN /HPF (NONE SEEN)
[2019-05-16] MEDS: METHYLPREDNISOLONE 40 MG INJ IV SCH (17:00)
[2019-05-16] MEDS: GABAPENTIN 300 MG CAP PO SCH (17:06)
[2019-05-16] MEDS: ROPINIROLE HCL 0.25 MG TAB PO SCH (17:06)
[2019-05-16] MEDS: buPROPion HCl 100 MG TAB PO SCH (20:53)
[2019-05-17] MEDS: IPRATROPIUM BROM 0.5MG/2.5ML NEB SCH ×2 (01:35→09:15)
[2019-05-17] MEDS: METHYLPREDNISOLONE 40 MG INJ IV SCH ×2 (01:41→08:10)
[2019-05-17 06:16] LABS: Absolute Lymphocytes (CBC) 1.1 K/uL (0.7-4.9); Basophils % 0.1 % (0-1.3); Hematocrit 40.5 % (36.0-45.0); Lymphocytes % 7.6 % (15.3-44.8); MPV 8.9 fL (7.6-11.3); RBC Red Blood Cell Count 4.47 M/uL (3.86-4.86)
[2019-05-17 06:39] LABS: Potassium 4.8 mmol/L (3.5-5.1)
[2019-05-17 07:45] LABS: Blood Morphology Comment NOT SEEN (NOT SEEN); Platelet Estimate ADEQ; Urine White Blood Cell Casts OK
--- NOTE | 2019-05-17 08:09 | EKG ---
Test Date: 2019-05-16 Test Time: 06:39:35 Community Relations Officer: CECY MEASUREMENT RESULTS: Intervals: Rate: 100 OK: 132 QRSD: 80 QT: 366 QTc: 472 [place]: P: 87 OK: 132 QRS: 96 T: 121 INTERPRETIVE STATEMENTS: Sinus rhythm with fusion complexes Rightward axis Nonspecific ST and T wave abnormality Prolonged QT Abnormal ECG Compared to ECG 09/18/2013 07:13:31 Fusion complex(es) now present Right-axis deviation now present ST (T wave) deviation now present Prolonged QT interval now present Electronically Signed On 05-17-19 08:07:05 CDT by Behzad Amor
[2019-05-17] MEDS: buPROPion HCl 100 MG TAB PO SCH (08:10)
[2019-05-17] MEDS: ROPINIROLE HCL 0.25 MG TAB PO SCH (08:10)
[2019-05-17] MEDS: GABAPENTIN 300 MG CAP PO SCH (08:10)
[2019-05-17] MEDS ORDERED: CANDESARTAN CILEXETIL 32 MG PO SCH (09:00)
[2019-05-17] MEDS ORDERED: ASPIRIN EC 81 MG TAB PO SCH (09:00)
[2019-05-17] MEDS: ARFORMOTEROL TARTRATE 15 MCG/2 ML VIAL.NEB NEB SCH (09:15)
[2019-05-17 10:00] VITALS: O2SAT 91
--- NOTE | 2019-05-17 10:08 | P.DS ---
Admission Date: 05/16/19 (Hospitalist) Discharge Date: 05/17/19 Disposition: ROUTINE DISCHARGE Discharge Condition: GOOD Reason for Admission: Shortness of breath - Problems (1) Asthma exacerbation Current Visit: Yes Status: Acute Qualifiers: Asthma severity: moderate Brief History of Present Illness: Patient is 63 years of age with a history of obstructive airways disease she quit smoking a long time ago for the past day she has been exposed to the remodeling at her workplace developed worsening shortness of breath with cough congestion worse for the past 4 days and was admitted to the hospital denies any fever chills. Patient does take Symbicort at home on a daily basis last flare up was a month ago Hospital Course: Patient did well during the course of her stay this morning while on rounding patient was doing much better with breathing has improved sats 91% with ambulation on examination she is alert oriented responsive cooperative chest examination slight wheezing particularly on the left side cardiovascular system os sounds normal abdomen soft extremities no edema patient will need a workup as an outpatient including pulmonary function testing I have also added some prednisone and in cruise at the time of discharge Vital Signs/Physical Exam: Temp Pulse Resp BP Pulse Ox 97.3 F 74 20 138/77 94 05/17/19 08:00 05/17/19 08:00 05/17/19 08:00 05/17/19 08:00 05/17/19 08:00 Laboratory Data at Discharge: WBC 14.8 K/uL (4.3-10.9) H D 05/17/19 05:25 Hgb 13.4 g/dL (12.0-15.0) 05/17/19 05:25 Hct 40.5 % (36.0-45.0) 05/17/19 05:25 Plt Count 371 K/uL (152-406) 05/17/19 05:25 Sodium 141 mmol/L (136-145) 05/17/19 05:25 Potassium 4.8 mmol/L (3.5-5.1) 05/17/19 05:25 BUN 17 mg/dL (7-18) 05/17/19 05:25 Creatinine 0.86 mg/dL (0.55-1.3) 05/17/19 05:25 Glucose 152 mg/dL (74-106) H 05/17/19 05:25 Home Medications: Gabapentin 600 mg PO BID 12/28/17 buPROPion HCl [Wellbutrin*] 150 mg PO BID 12/28/17 Candesartan Cilexetil 32 mg PO DAILY 05/16/19 Mometasone/Formoterol [Dulera 100 Mcg/5 Mcg Inhaler] 2 puff IH DAILY 05/16/19 Ropinirole HCl 0.5 mg PO DAILY 05/16/19 hydrOXYzine HCl [Hydroxyzine HCl] 25 mg PO BID 05/16/19 Umeclidinium Cache [Incruse Ellipta] 62.5 mcg IH DAILY #1 blst.w.dev 05/17/19 predniSONE [Deltasone*] 10 mg PO BID #20 tab 05/17/19 New Medications: predniSONE [Deltasone*] 10 mg PO BID #20 tab Umeclidinium Cache [Incruse Ellipta] 62.5 mcg IH DAILY #1 blst.w.dev Diet: Regular Activity: Ad darrel Followup: Yevgeniy Patton MD [Primary Care Provider] -
[2019-05-17 12:44] VITALS: BP 137/67; TEMP 98.8
== END 2019-05-17 12:00 | disposition home or self-care (01) ==
LOC: SUPCPDRO 06:19 → ER 06:19 → ERHOLD 09:20 → 4TH 10:12
PROVIDERS: ADMIT Internal Medicine Sleep Medicine; ATTEND Internal Medicine Sleep Medicine
DX: J45.901 Unspecified asthma with (acute) exacerbation (principal); I10 Essential (primary) hypertension; Z87.891 Personal history of nicotine dependence
CPT/HCPCS: 96365; 96368; 93005; 87040 ×2; 85025 ×2; 81001; 80048 ×2; 36415 ×2; 85379; 84484; 83880; 71045; 94640 ×5; 82805; 94660 ×2; 96375; 99285; 96366; J3475 ×2; J1100; J7605 ×3; J7030; J2930; J2920 ×3; G0378 ×2

== ENCOUNTER 2019-06-14 21:08 | Inpatient (IN) | payer BC ==
[2019-06-14] MEDS ORDERED: IPRATROPIUM BROM 0.5MG/2.5ML ONE (21:31)
[2019-06-14] MEDS ORDERED: ALBUTEROL 2.5 MG/3 ML NEB SOL ONE (21:31)
[2019-06-14] MEDS ORDERED: METHYLPREDNISOLONE 125 MG INJ ONE (21:31)
[2019-06-14] MEDS ORDERED: MAGNESIUM SULFATE 1 gm IVPB 1 GM/100 ML BAG IV ONE (21:31)
[2019-06-14 21:47] LABS: Absolute Lymphocytes (CBC) 2.7 K/uL (0.7-4.9); Basophils % 1.4 % (0-1.3); Hematocrit 40.8 % (36.0-45.0); MPV 8.5 fL (7.6-11.3); RBC Red Blood Cell Count 4.53 M/uL (3.86-4.86)
[2019-06-14 21:49] LABS: Arterial Blood Carboxyhemoglob 0.8 % (0-1.5); Blood Gas Oxyhemoglobin 97.3 % (94-97); Blood O2 Saturation 98.8 % (92-98.5)
[2019-06-14 21:50] LABS: Protime INR 1.02
--- NOTE | 2019-06-14 22:03 | RAD REPORT ---
EXAM DESCRIPTION: RAD - Chest Single View - 06/14/2019 9:43 pm CLINICAL HISTORY: shortness of breath Chest pain. COMPARISON: Chest Single View dated 05/16/2019; Chest Pa And Lat (2 Views) dated 04/08/2019; Chest Sin gle View dated 12/28/2017; CHEST PA AND LAT 2 VIEW dated 08/25/2015 FINDINGS: Portable technique limits examination quality. The lungs are emphysematous but grossly clear. The heart is normal in size. No displaced fractures. IMPRESSION: COPD.
[2019-06-14 22:07] LABS: ALT/SGPT 30 U/L (12-78); AST/SGOT 24 U/L (15-37); Albumin 3.7 g/dL (3.4-5.0); Alkaline Phosphatase 101 U/L (45-117); BUN Blood Urea Nitrogen 13 mg/dL (7-18); Bicarbonate 27 mmol/L (21-32); Bilirubin Direct < 0.1 mg/dL (0-0.2); Bilirubin Total 0.3 mg/dL (0.2-1.0); Glucose Level 109 mg/dL (74-106); Magnesium 2.3 mg/dL (1.8-2.4); NT PRO-BNP 222 pg/mL (<125); Potassium 4.3 mmol/L (3.5-5.1); Protein, Total 7.1 g/dL (6.4-8.2); Sodium Level 143 mmol/L (136-145); Troponin (Emerg Dept Use Only) < 0.02 ng/mL (0.0-0.045)
--- NOTE | 2019-06-14 23:08 | ER ---
Nurse's Notes [facility] Name: Ivonne Pritchett Age: 63 yrs Sex: Female : 1955 Arrival Date: 06/14/2019 Time: 21:09 Bed 13 Private MD: Diagnosis: Chronic obstructive pulmonary disease with (acute) exacerbation;Hypoxia Presentation: 06/14 21:18 Presenting complaint: Patient states: jg been having shortness of breath and cough for mg2 4 days now but no fever. i think its asthma and im on breathing treatments at home. Transition of care: patient was not received from another setting of care. Onset of symptoms was May 2019. Risk Assessment: Do you want to hurt yourself or someone else? Patient reports no desire to harm self or others. Initial Sepsis Screen: Does the patient meet any 2 criteria? No. Patient's initial sepsis screen is negative. Does the patient have a suspected source of infection? No. Patient's initial sepsis screen is negative. Care prior to arrival: None. 21:18 Method Of Arrival: Wheelchair mg2 21:18 Acuity: MARY 2 mg2 Historical: - Allergies: 21:20 NKA; mg2 - Home Meds: 23:58 amlodipine 2.5 mg tab 1 tab once daily [Active]; atorvastatin Oral [Active]; Cymbalta lp1 60 mg Oral cpDR 1 cap once daily [Active]; gabapentin 600 mg Oral tab 1 tab nightly [Active]; gabapentin Oral [Active]; irbesartan Oral [Active]; Requip Oral [Active]; Wellbutrin Oral [Active]; - PMHx: 21:20 Fibromyalgia; Hypertension; restless leg syndrome; mg2 - PSHx: 21:20 Cholecystectomy; Tubal ligation; mg2 - Immunization history:: Flu vaccine status is unknown. - Social history:: Smoking status: Patient/guardian denies using tobacco, Patient/guardian denies using alcohol, street drugs. - Ebola Screening: : No symptoms or risks identified at this time. Screenin:00 Abuse screen: Denies threats or abuse. Denies injuries from another. Nutritional lp1 screening: No deficits noted. Tuberculosis screening: No symptoms or risk factors identified. Fall Risk None identified. Assessment: 21:30 General: Appears distressed, Behavior is appropriate for age, anxious. Pain: Denies lp1 pain. Neuro: Level of Consciousness is awake, alert, obeys commands, Oriented to person, place, time, situation. Cardiovascular: Patient's skin is warm and dry. Rhythm is sinus rhythm. Respiratory: Reports shortness of breath Airway is patent Trachea midline Respiratory effort is labored, Respiratory pattern is tachypnea Breath sounds with wheezes bilaterally. Onset: The symptoms/episode began/occurred just prior to arrival, the patient has moderate shortness of breath. GI: Abdomen is non-distended. : No signs and/or symptoms were reported regarding the genitourinary system. EENT: No signs and/or symptoms were reported regarding the EENT system. Derm: Skin is intact, Skin is dry, Skin is normal. Musculoskeletal: No deficits noted. 22:37 Reassessment: Patient aware of pending admission per Provider Patient states feeling lp1 better. 23:00 Reassessment: Patient noted with labored repirations; BiPAP placed by RT at this time. lp1 23:20 Reassessment: Patient requesting to take BiPAP off at this time; States "I felt like I lp1 was going to "; Provider notified of patient unable to tolerate BiPAP. 23:45 Reassessment: Patient appears calm at this time; NC in place at 2L. lp1 23:55 Reassessment: Attempted to call report at this time, nurse unavailable. lp1 Vital Signs: 21:19 BP 165 / 92; Pulse 114; Resp 28; Temp 98.1(O); Pulse Ox 85% on R/A; Weight 76.2 kg; mg2 Height 5 ft. 4 in. (162.56 cm); 22:00 BP 117 / 78; Pulse 96; Resp 21; Pulse Ox 97% on Nebulizer Mask; lp1 23:00 BP 115 / 76; Pulse 97; Resp 14; Pulse Ox 97% on 30% BiPAP; lp1 06/15 00:00 BP 117 / 70; Pulse 94; Resp 22; Pulse Ox 95% on 2 lpm NC; lp1 06/14 21:19 Body Mass Index 28.84 (76.20 kg, 162.56 cm) mg2 ED Course: 06/14 21:09 Patient arrived in ED. cf2 21:19 Triage completed. mg2 21:20 Navi Rhodes PA is PHCP. [facility] 21:20 Deepak Aggarwal MD is Attending Physician. [facility] 21:20 Arm band placed on. mg2 21:25 Kelley Everett, RN is Primary Nurse. lp1 21:35 Inserted saline lock: 20 gauge in right antecubital area, using aseptic technique. mg2 Blood collected. 21:41 X-ray completed. Portable x-ray completed in exam room. Patient tolerated procedure kw well. 21:44 XRAY Chest (1 view) In Process Unspecified. EDMS 22:00 Patient has correct armband on for positive identification. Placed in gown. Bed in low lp1 position. court recording monitor on. Pulse ox on. NIBP on. 23:06 Inocente Ortez MD is Hospitalizing Provider. [facility] 23:56 No provider procedures requiring assistance completed. Patient admitted, IV remains in lp1 place. Administered Medications: 21:30 Drug: DuoNeb (3:1) (2.5 mg - 0.5 mg) 3 ml Route: Nebulizer; lp1 23:11 Follow up: Response: No adverse reaction lp1 21:45 Drug: SOLU-Medrol 125 mg Route: IVP; Site: right antecubital; lp1 23:11 Follow up: Response: No adverse reaction lp1 21:45 Drug: Magnesium Sulfate 1 grams Route: IVPB; Infused Over: 1 hrs; Site: right lp1 antecubital; 23:00 Follow up: IV Status: Completed infusion; IV Intake: 100ml lp1 Intake: 23:00 IV: 100ml; Total: 100ml. lp1 Outcome: 23:07 Decision to Hospitalize by Provider. [facility] 23:56 Condition: stable lp1 23:56 Instructed on the need for admit. 06/15 00:14 Admitted to Tele accompanied by tech, via stretcher, room 412, with oxygen, with chart, lp1 Report called to SONIDO Rogers 00:44 Patient left the ED. lp1 Signatures: Dispatcher [employer] EDMS Navi Rhodes PA PA jmm Whitley, Kimberlee kw Pena, Laura, RN RN lp1 Jules Gorman RN RN mg2 Miriam Garza cf2 Corrections: (The following items were deleted from the chart) 00:02 06/14 23:59 Reassessment: Patient appears calm at this time; NC in place at 2L lp1 lp1
--- NOTE | 2019-06-14 23:09 | EDPHYS ---
Physician Documentation [facility] Name: Ivonne Pritchett Age: 63 yrs Sex: Female : 1955 Arrival Date: 06/14/2019 Time: 21:09 Bed 13 Private MD: ED Physician Deepak Aggarwal HPI: 06/14 21:23 This 63 yrs old Female presents to ER via Wheelchair with complaints of jmm Shortness Of Breath. 21:23 The patient has shortness of breath at rest. Onset: The symptoms/episode began/occurred jmm gradually, 2 day(s) ago. Duration: The symptoms are continuous. The patient's shortness of breath is aggravated by nothing, is alleviated by nebulizer treatment. Associated signs and symptoms: Pertinent negatives: fever. This is a 63 year old female with a history of htn, that presents to the ED with complaints of cough, shortness of breath similar to an episodes 1 month prior in which she was hospitalized. Patient has used nebulizer at home with minimal relief. . Historical: - Allergies: 21:20 NKA; mg2 - Home Meds: 23:58 amlodipine 2.5 mg tab 1 tab once daily [Active]; atorvastatin Oral [Active]; Cymbalta lp1 60 mg Oral cpDR 1 cap once daily [Active]; gabapentin 600 mg Oral tab 1 tab nightly [Active]; gabapentin Oral [Active]; irbesartan Oral [Active]; Requip Oral [Active]; Wellbutrin Oral [Active]; - PMHx: 21:20 Fibromyalgia; Hypertension; restless leg syndrome; mg2 - PSHx: 21:20 Cholecystectomy; Tubal ligation; mg2 - Immunization history:: Flu vaccine status is unknown. - Social history:: Smoking status: Patient/guardian denies using tobacco, Patient/guardian denies using alcohol, street drugs. - Ebola Screening: : No symptoms or risks identified at this time. ROS: 21:23 Constitutional: Negative for fever, chills, and weight loss, Cardiovascular: Negative jmm for chest pain, palpitations, and edema. 21:23 Respiratory: Positive for shortness of breath. 21:23 All other systems are negative. Exam: 21:23 Head/Face: atraumatic. Eyes: EOMI, no conjunctival erythema appreciated ENT: Moist jmm Mucus Membranes Neck: Trachea midline, Supple Chest/axilla: Normal chest wall appearance and motion. Cardiovascular: Regular rate and rhythm. No edema appreciated 21:23 Back: Normal ROM Skin: General appearance color normal MS/ Extremity: Moves all extremities, no obvious deformities appreciated, no edema noted to the lower extremities Neuro: Awake and alert, normal gait Psych: Behavior is normal, Mood is normal, Patient is cooperative and pleasant 21:23 Constitutional: The patient appears in no acute distress, alert, awake. 21:23 Respiratory: mild respiratory distress is noted, Respirations: labored breathing, that is mild, Breath sounds: wheezing: that is moderate, is heard diffusely. Vital Signs: 21:19 BP 165 / 92; Pulse 114; Resp 28; Temp 98.1(O); Pulse Ox 85% on R/A; Weight 76.2 kg; mg2 Height 5 ft. 4 in. (162.56 cm); 22:00 BP 117 / 78; Pulse 96; Resp 21; Pulse Ox 97% on Nebulizer Mask; lp1 23:00 BP 115 / 76; Pulse 97; Resp 14; Pulse Ox 97% on 30% BiPAP; lp1 06/15 00:00 BP 117 / 70; Pulse 94; Resp 22; Pulse Ox 95% on 2 lpm NC; 1 06/14 21:19 Body Mass Index 28.84 (76.20 kg, 162.56 cm) mg2 MDM: 06/14 21:23 Patient medically screened. [facility] 23:05 Data reviewed: vital signs, nurses notes. Counseling: I had a detailed discussion with [facility] the patient and/or guardian regarding: the historical points, exam findings, and any diagnostic results supporting the discharge/admit diagnosis, lab results, radiology results, the need for further work-up and treatment in the hospital. ED course: I discussed the patient with Dr. Ortez whom accepted admission. . 06/14 21:24 Order name: Basic Metabolic Panel; Complete Time: 22:21 [facility] 06/14 21:24 Order name: CBC with Diff; Complete Time: 22:05 [facility] 06/14 21:24 Order name: LFT's; Complete Time: 22:21 [facility] 06/14 21:24 Order name: Magnesium; Complete Time: 22:21 [facility] 06/14 21:24 Order name: NT PRO-BNP; Complete Time: 22:21 [facility] 06/14 21:24 Order name: PT-INR; Complete Time: 22:40 [facility] 06/14 21:24 Order name: Troponin (emerg Dept Use Only); Complete Time: 22:21 [facility] 06/14 21:24 Order name: ABG; Complete Time: 22:21 [facility] 06/14 21:38 Order name: Lactate; Complete Time: 22:21 [facility] 06/14 21:38 Order name: Procalcitonin; Complete Time: 22:40 [facility] 06/14 23:25 Order name: CBC with Automated Diff [facility] 06/14 23:25 Order name: CBC with Automated Diff [facility] 06/14 23:25 Order name: Comprehensive Metabolic Panel [facility] 06/14 23:25 Order name: Comprehensive Metabolic Panel [facility] 06/14 21:24 Order name: XRAY Chest (1 view); Complete Time: 22:21 [facility] 06/14 21:24 Order name: EKG; Complete Time: 21:26 [facility] 06/14 22:48 Order name: BIPAP [facility] 06/14 23:25 Order name: NPO [facility] 06/14 23:25 Order name: Magnesium [facility] 06/14 23:25 Order name: Magnesium [facility] 06/14 23:25 Order name: Phosphorus [facility] 06/14 23:25 Order name: Phosphorus [facility] 06/14 23:25 Order name: NT PRO-BNP [facility] 06/14 23:25 Order name: NT PRO-BNP [facility] 06/14 23:25 Order name: Troponin I [facility] 06/14 23:25 Order name: Troponin I [facility] 06/14 23:26 Order name: Urinalysis [facility] 06/14 21:24 Order name: Cardiac monitoring; Complete Time: 21:55 [facility] 06/14 21:24 Order name: EKG - Nurse/Tech; Complete Time: 21:55 [facility] 06/14 21:24 Order name: IV Saline Lock; Complete Time: 21:55 [facility] 06/14 21:24 Order name: Labs collected and sent; Complete Time: 21:55 [facility] 06/14 21:24 Order name: O2 Per Protocol; Complete Time: 21:55 [facility] 06/14 21:24 Order name: O2 Sat Monitoring; Complete Time: 21:55 [facility] Administered Medications: 21:30 Drug: DuoNeb (3:1) (2.5 mg - 0.5 mg) 3 ml Route: Nebulizer; lp1 23:11 Follow up: Response: No adverse reaction lp1 21:45 Drug: SOLU-Medrol 125 mg Route: IVP; Site: right antecubital; lp1 23:11 Follow up: Response: No adverse reaction lp1 21:45 Drug: Magnesium Sulfate 1 grams Route: IVPB; Infused Over: 1 hrs; Site: right lp1 antecubital; 23:00 Follow up: IV Status: Completed infusion; IV Intake: 100ml lp1 Disposition: 06/15 06:32 Co-signature as Attending Physician, Deepak Aggarwal MD Available for consultation at [facility] all times . Disposition: 06/14/19 23:07 Hospitalization ordered by Inocente Ortez for Inpatient Admission. Preliminary diagnosis are Chronic obstructive pulmonary disease with (acute) exacerbation, Hypoxia. - Bed requested for Telemetry/MedSurg (Inpatient). - Status is Inpatient Admission. lp1 - Condition is Stable. - Problem is an acute exacerbation. - Symptoms have improved. UTI on Admission? No Signatures: Dispatcher [employer] EDMS Giovanna Ferrer RN RN Navi Rhodes PA PA [facility] Kelley Everett RN RN [facility] Deepak Aggarwal MD MD [facility] Jules Gorman RN RN [facility] Corrections: (The following items were deleted from the chart) 06/14 23:28 23:07 Hospitalization Ordered by Inocente Ortez MD for Inpatient Admission. Preliminary diagnosis is Chronic obstructive pulmonary disease with (acute) exacerbation; Hypoxia. Bed requested for Telemetry/MedSurg (Inpatient). Status is Inpatient Admission. Condition is Stable. Problem is an acute exacerbation. Symptoms have improved. UTI on Admission? No. kina 06/15 00:44 06/14 23:28 06/14/2019 23:07 Hospitalization Ordered by Inocente Ortez MD for Inpatient lp1 Admission. Preliminary diagnosis is Chronic obstructive pulmonary disease with (acute) exacerbation; Hypoxia. Bed requested for Telemetry/MedSurg (Inpatient). Status is Inpatient Admission. Condition is Stable. Problem is an acute exacerbation. Symptoms have improved. UTI on Admission? No.
[2019-06-14] MEDS ORDERED: AZITHROMYCIN IV 500 MG in NA CHLORIDE 0.9% 250 ML IVPB ONE (23:18)
[2019-06-14] MEDS ORDERED: ACETAMINOPHEN 500 MG TAB PO PRN (23:18)
[2019-06-14] MEDS ORDERED: ONDANSETRON 4 MG/2 ML VIAL IV PRN (23:18)
[2019-06-15 01:11] VITALS: BMI 29.5
[2019-06-15] MEDS ORDERED: AZITHROMYCIN 500 MG INJ IVPB ONE (01:29)
[2019-06-15] MEDS ORDERED: NA CHLORIDE 0.9% 250 ML ONE (01:34)
[2019-06-15] MEDS: ALPRAZOLAM 0.25 MG TABLET PO PRN ×2 (01:38→21:24)
[2019-06-15] MEDS: IPRATROPIUM BROM 0.5MG/2.5ML NEB SCH ×4 (02:45→20:00)
[2019-06-15] MEDS: ALBUTEROL 2.5 MG/3 ML NEB SOL NEB SCH ×4 (02:45→20:00)
[2019-06-15 05:10] LABS: Absolute Lymphocytes (CBC) 0.6 K/uL (0.7-4.9); Basophils % 0.3 % (0-1.3); Hematocrit 38.1 % (36.0-45.0); Lymphocytes % 8.1 % (15.3-44.8); MPV 8.2 fL (7.6-11.3); RBC Red Blood Cell Count 4.23 M/uL (3.86-4.86)
[2019-06-15] MEDS: METHYLPREDNISOLONE 125 MG INJ IV SCH ×3 (05:24→21:24)
[2019-06-15 05:34] LABS: ALT/SGPT 28 U/L (12-78); AST/SGOT 20 U/L (15-37); Albumin 3.7 g/dL (3.4-5.0); Alkaline Phosphatase 99 U/L (45-117); BUN Blood Urea Nitrogen 15 mg/dL (7-18); Bicarbonate 28 mmol/L (21-32); Bilirubin Total 0.3 mg/dL (0.2-1.0); Glucose Level 167 mg/dL (74-106); Magnesium 2.4 mg/dL (1.8-2.4); NT PRO-BNP 259 pg/mL (<125); Phosphorus 3.6 mg/dL (2.5-4.9); Potassium 4.2 mmol/L (3.5-5.1); Protein, Total 6.9 g/dL (6.4-8.2); Sodium Level 141 mmol/L (136-145); Troponin I < 0.02 ng/mL (0.0-0.045)
[2019-06-15 05:41] LABS: Urine Appearance CLEAR; Urine Bilirubin NEGATIVE (NEG); Urine Blood NEGATIVE (NEG); Urine Color YELLOW; Urine Glucose NEGATIVE (NEG); Urine Protein NEGATIVE (NEG); Urine Urobilinogen 0.2 mg/dL (0.2-1.0)
[2019-06-15 05:45] LABS: Urine Microscopic Reflex NO UMIC
--- NOTE | 2019-06-15 06:11 | EKG ---
Test Date: 2019-06-14 Test Time: 21:55:32 [employer]: KIM MEASUREMENT RESULTS: Intervals: Rate: 93 IN: 136 QRSD: 112 QT: 362 QTc: 450 [place]: P: 77 IN: 136 QRS: 94 T: 55 INTERPRETIVE STATEMENTS: Normal sinus rhythm Right bundle branch block Abnormal ECG Compared to ECG 05/16/2019 06:39:35 ST (T wave) deviation no longer present Prolonged QT interval no longer present Electronically Signed On 06-15-19 06:10:37 CDT by Cachorro Maldonado
--- NOTE | 2019-06-15 08:23 | P.HP ---
Certification for Inpatient Patient admitted to: Observation With expected LOS: <2 Midnights Patient will require the following post-hospital care: None Practitioner: I am a practitioner with admitting privileges, knowledge of patient current condition, hospital course, and medical plan of care. Services: Services provided to patient in accordance with Admission requirements found in Title 42 Section 412.3 of the Code of Federal Regulations Patient History Date of Service: 06/14/19 Reason for admission: Acute COPD exacerbation History of Present Illness: Patient is a 63yo female with dyspnea and hypoxemia. Patient has a history of COPD exacerbation. Patient is on nebs and Symbicort. Patient was not improving so she came into the hospital for further evaluation. Patient was found have a O2 sats of 80%. She was placed on O2. After giving multiple breathing treatments and steroids her symptoms have slowly improved. She will be admitted to the hospital for further evaluation. Will get pulmonary consultation. She will need pulmonary function testing. She has a 11 year smoking history but quit at the age of 26. Prior to that she was exposed to secondhand smoke from her parents. 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 She will probably need to be off work for at about 1 week to assist with her breathing improving. Allergies No Known Allergies Allergy (Verified 09/17/13 22:55) - Past Medical/Surgical History Has patient received pneumonia vaccine in the past: No Diabetic: No -: diverticulitis -: fibromyalgia -: htn, -: high cholesterol -: RLS -: zackary -: tubal ligation -: "pelvic prolapse surgery" - Family History Father Medical History: Hypertension, Cancer Mother Medical History: Hypertension, Diabetes, Stroke Brother Medical History: Hypertension, Stroke - Social History Smoking Status: Former smoker Alcohol use: Yes CD- Drugs: No Caffeine use: Yes Place of Residence: Home Review of Systems 10-point ROS is otherwise unremarkable Physical Examination - Vital Signs Temperature: 97 F Blood Pressure: 104/68 Pulse: 94 Respirations: 18 Pulse Ox (%): 95 - Physical Exam General: Alert, In no apparent distress, Oriented x3 HEENT: Atraumatic, PERRLA, Mucous membr. moist/pink, EOMI, Sclerae nonicteric Neck: Supple, 2+ carotid pulse no bruit, No LAD, Without JVD or thyroid abnormality Respiratory: Clear to auscultation bilaterally, Normal air movement Cardiovascular: Regular rate/rhythm, Normal S1 S2 Gastrointestinal: Normal bowel sounds, No tenderness Musculoskeletal: No tenderness Integumentary: No rashes Neurological: Normal gait, Normal speech, Normal strength at 5/5 x4 extr, Normal tone, Normal affect Lymphatics: No axilla or inguinal lymphadenopathy - Studies Laboratory Data (last 24 hrs) 06/14/19 21:15: PT 12.0, INR 1.02 06/14/19 21:15: WBC 8.6, Hgb 13.9, Hct 40.8, Plt Count 419 H 06/14/19 21:15: Sodium 143, Potassium 4.3, BUN 13, Creatinine 1.09, Glucose 109 H, Magnesium 2.3, Total Bilirubin 0.3, AST 24, ALT 30, Alkaline Phosphatase 101 Assessment & Plan - Problems (Diagnosis) (1) COPD with acute exacerbation Current Visit: Yes Status: Acute (2) Hypoxemia Current Visit: Yes Status: Acute - Plan Plan: 1. Continue with albuterol and Atrovent nebs 2. Continue with IV steroids 3. Outpatient pulmonary function testing 4. Pulmonary consultation 5. Room air O2 sats in 24-48 hrs 6. Repeat chest x-ray in the morning 7. GI and DVT prophylaxis Discharge Plan: Home Plan to discharge in: Greater than 2 days - Advance Directives Does patient have a Living Will: No Does patient have a Durable POA for Healthcare: No - Code Status/Comfort Care Code Status Assessed: Yes Code Status: Full Code Critical Care: No Time Spent Managing PTS Care (In Minutes): 45
[2019-06-15 08:29] LABS: Blood Morphology Comment NOT SEEN (NOT SEEN); Platelet Estimate ADEQ
[2019-06-15] MEDS ORDERED: CEFTRIAXONE 1 GM/NS 50 ML 1 GM/50 ML BAG IV SCH (09:00)
[2019-06-15] MEDS: ENOXAPARIN 40 MG/0.4 ML SQ SCH (09:25)
[2019-06-15] MEDS: CEFTRIAXONE/SWI 1gm 1 GM/10 ML SYR IV SCH (09:25)
--- NOTE | 2019-06-15 11:54 | P.CNS ---
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 patient improved with prednisone is taking Breo and Symbicort became progressively worse admitted to the hospital she is doing much better never smoked Allergies No Known Allergies Allergy (Verified 09/17/13 22:55) Home Medications: Albuterol Neb [Proventil 0.083% Neb Soln] 0.6 mg IH Q2HP PRN 06/15/19 Albuterol Sulfate [Proair Hfa] 2 puff IH Q4H 06/15/19 Atorvastatin Calcium [Lipitor] 20 mg PO DAILY 06/15/19 Budesonide/Formoterol Fumarate [Symbicort 160-4.5 Mcg Inhaler] 1 puff IN BID Gabapentin 600 mg PO BID 06/15/19 Magnesium Oxide [Magnesium] 500 mg PO BEDTIME 06/15/19 Naltrexone HCl/Bupropion HCl [Contrave ER 8-90 mg Tablet] 50 mg PO DAILY Ropinirole HCl 0.5 mg PO Q2H 06/15/19 Umeclidinium [place] [Incruse Ellipta] 1 puff IN DAILY 06/15/19 Umeclidinium [place] [Incruse Ellipta] 62.5 mcg IH DAILY 30 Days blst.w.dev - Past Medical/Surgical History Diabetic: No -: diverticulitis -: fibromyalgia -: htn, -: high cholesterol -: RLS -: zackary -: tubal ligation -: "pelvic prolapse surgery" - Family History Father Medical History: Hypertension, Cancer Mother Medical History: Hypertension, Diabetes, Stroke Brother Medical History: Hypertension, Stroke - Social History Smoking Status: Former smoker Alcohol use: Yes CD- Drugs: No Caffeine use: Yes Place of Residence: Home Review of Systems 10-point ROS is otherwise unremarkable Physical Examination Temp Pulse Resp BP Pulse Ox 97 F 94 H 18 104/68 95 06/15/19 08:37 06/15/19 08:37 06/15/19 08:37 06/15/19 08:37 06/15/19 08:37 General: Alert, In no apparent distress, Oriented x3 Neck: Supple Respiratory: Expiratory wheezes Cardiovascular: No edema, Regular rate/rhythm, Normal S1 S2 Gastrointestinal: Normal bowel sounds, Soft and benign Laboratory Data (last 24 hrs) 06/14/19 21:15: PT 12.0, INR 1.02 06/14/19 21:15: WBC 8.6, Hgb 13.9, Hct 40.8, Plt Count 419 H 06/14/19 21:15: Sodium 143, Potassium 4.3, BUN 13, Creatinine 1.09, Glucose 109 H, Magnesium 2.3, Total Bilirubin 0.3, AST 24, ALT 30, Alkaline Phosphatase 101 - Problems (1) Asthma exacerbation Current Visit: No Status: Acute Plan: Patient is 63 years of age admitted with recurrent asthma exacerbation she has never smoked chest x-rays clear hyperinflated labs shows mild hypoxemia with hypercapnia patient can be discharged home on prednisone 10 mg twice a day for at least 2 weeks patient to take either Symbicort or Breo and had an anticholinergic no evidence of sepsis antibiotics not needed according to her home medication list that is no Breo listed the continue with include Qualifiers: Asthma severity: moderate
--- NOTE | 2019-06-15 14:52 | P.PN ---
Subjective Date of Service: 06/15/19 Chief Complaint: Asthma exacerbation Patient seen and examined at bedside. chart reviewed and case discussed with nursing staff. Patient reports improvement in breathing this am. still requiring NC for oxygen. No acute events noted overnight. Review of Systems 10-point ROS is otherwise unremarkable Physical Examination - Vital Signs Temperature: 97 F Blood Pressure: 128/51 Pulse: 87 Respirations: 18 Pulse Ox (%): 96 - Physical Exam General: Alert, In no apparent distress HEENT: Atraumatic, PERRLA, EOMI Neck: Supple, JVD not distended Respiratory: Diminished, Expiratory wheezes Cardiovascular: Regular rate/rhythm, Normal S1 S2 Gastrointestinal: Normal bowel sounds, No tenderness Musculoskeletal: No tenderness Integumentary: No rashes Neurological: Normal speech, Normal tone, Normal affect Lymphatics: No axilla or inguinal lymphadenopathy - Studies Laboratory Data (last 24 hrs) 06/14/19 21:15: PT 12.0, INR 1.02 06/14/19 21:15: WBC 8.6, Hgb 13.9, Hct 40.8, Plt Count 419 H 06/14/19 21:15: Sodium 143, Potassium 4.3, BUN 13, Creatinine 1.09, Glucose 109 H, Magnesium 2.3, Total Bilirubin 0.3, AST 24, ALT 30, Alkaline Phosphatase 101 Assessment And Plan - Current Problems (Diagnosis) (1) Hypoxemia Current Visit: Yes Status: Acute (2) Asthma exacerbation Current Visit: No Status: Acute Qualifiers: Asthma severity: moderate - Plan Plan: 1. Continue with albuterol and Atrovent nebs 2. Continue with IV steroids - converted to PO steroids. 3. Outpatient pulmonary function testing 4. Pulmonary consultation, recommendations appreciated. 5. Room air O2 sats , wean oxygen as tolerated. 6. GI and DVT prophylaxis Disposition: anticipate discharge once patient weaned off of oxygen.
[2019-06-16] MEDS: IPRATROPIUM BROM 0.5MG/2.5ML NEB SCH ×4 (01:45→18:12)
[2019-06-16] MEDS: ALBUTEROL 2.5 MG/3 ML NEB SOL NEB SCH ×4 (01:45→18:12)
[2019-06-16] MEDS: METHYLPREDNISOLONE 125 MG INJ IV SCH (05:30)
[2019-06-16] MEDS: CEFTRIAXONE/SWI 1gm 1 GM/10 ML SYR IV SCH (09:59)
[2019-06-16] MEDS: ENOXAPARIN 40 MG/0.4 ML SQ SCH (09:59)
--- NOTE | 2019-06-16 12:11 | P.PN ---
Subjective Date of Service: 06/16/19 Chief Complaint: Asthma exacerbation Subjective: Improving Patient seen and examined at bedside. chart reviewed and case discussed with nursing staff. Patient reports improvement in breathing this am. still requiring NC for oxygen. De-sats down to mid 80s on minimal exertion No acute events noted overnight. Review of Systems 10-point ROS is otherwise unremarkable Physical Examination - Vital Signs Temperature: 97.2 F Blood Pressure: 155/70 Pulse: 94 Respirations: 17 Pulse Ox (%): 95 - Physical Exam General: Alert, In no apparent distress HEENT: Atraumatic, PERRLA, EOMI Neck: Supple, JVD not distended Respiratory: Dull Cardiovascular: Regular rate/rhythm, Normal S1 S2 Gastrointestinal: Normal bowel sounds, No tenderness Musculoskeletal: No tenderness Integumentary: No rashes Neurological: Normal speech, Normal tone, Normal affect Lymphatics: No axilla or inguinal lymphadenopathy Assessment And Plan - Current Problems (Diagnosis) (1) Hypoxemia Current Visit: Yes Status: Acute (2) Asthma exacerbation Current Visit: No Status: Acute Qualifiers: Asthma severity: moderate - Plan Plan: 1. Continue with albuterol and Atrovent nebs 2. Continue with IV steroids 3. She will need Outpatient pulmonary function testing 4. Pulmonary consultation, recommendations appreciated. 5. Room air O2 sats , wean oxygen as tolerated. 6. GI and DVT prophylaxis 7.IV antibiotics to PO antibiotics, complete a 7 day course Disposition: anticipate discharge once patient weaned off of oxygen. Anticipating discharge tomorrow
--- NOTE | 2019-06-16 12:11 | P.PN ---
Subjective Date of Service: 06/16/19 Chief Complaint: Asthma exacerbation Subjective: Improving (Patient is improving still complains of shortness of breath) Review of Systems Unremarkable Physical Examination - Vital Signs Temperature: 97.2 F Blood Pressure: 155/70 Pulse: 94 Respirations: 17 Pulse Ox (%): 95 - Physical Exam General: Alert, Oriented x3, Mild distress Respiratory: Expiratory wheezes Cardiovascular: No edema, Regular rate/rhythm, Normal S1 S2 Assessment & Plan - Problems (Diagnosis) (1) Asthma exacerbation Current Visit: No Status: Acute Plan: Patient is improving room-air sats a satisfactory discharged home on current bronchodilators also leave her on prednisone 10 mg twice a day for at least 14 days and then 10 mg once a day until she follows up with me I recommend also adding Zithromax for anti inflammatory purposes 250 mg once a day for 10 days as this is her recurrent admission
[2019-06-16] MEDS: METHYLPREDNISOLONE 40 MG INJ IV SCH (17:28)
[2019-06-16] MEDS: HOME MED 1 EA UNK (Budesonide/Formoterol Fumarate [Symbicort 160-4.5 Mcg Inhaler] 1 PUFF) IN SCH (21:00)
[2019-06-16] MEDS: GABAPENTIN 300 MG CAP PO SCH (21:17)
[2019-06-16] MEDS: MAGNESIUM OXIDE 400 MG TAB PO SCH (21:19)
[2019-06-16] MEDS: ATORVASTATIN 20 MG TAB PO SCH (21:19)
[2019-06-16] MEDS: ROPINIROLE HCL 0.25 MG TAB PO SCH (21:19)
[2019-06-17] MEDS: METHYLPREDNISOLONE 40 MG INJ IV SCH ×4 (01:03→23:37)
[2019-06-17] MEDS: ALBUTEROL 2.5 MG/3 ML NEB SOL NEB SCH ×4 (02:00→19:35)
[2019-06-17] MEDS: IPRATROPIUM BROM 0.5MG/2.5ML NEB SCH ×4 (02:00→19:35)
[2019-06-17] MEDS: GABAPENTIN 300 MG CAP PO SCH ×2 (08:08→20:55)
[2019-06-17] MEDS: NALTREXONE HCL PO SCH (08:08)
[2019-06-17] MEDS: AZITHROMYCIN 250 MG TAB PO SCH (08:08)
[2019-06-17] MEDS: ENOXAPARIN 40 MG/0.4 ML SQ SCH (08:08)
[2019-06-17] MEDS: BUPROPION HCL PO SCH (08:08)
[2019-06-17] MEDS: HOME MED 1 EA UNK (Umeclidinium Bromide [Incruse Ellipta] 1 PUFF) IN SCH (08:09)
[2019-06-17] MEDS: HOME MED 1 EA UNK (Budesonide/Formoterol Fumarate [Symbicort 160-4.5 Mcg Inhaler] 1 PUFF) IN SCH ×2 (08:09→21:00)
[2019-06-17 10:29] LABS: Arterial Blood Carboxyhemoglob 1.2 % (0-1.5); Blood Gas Oxyhemoglobin 90.2 % (94-97); Blood O2 Saturation 91.9 % (92-98.5)
--- NOTE | 2019-06-17 10:51 | RAD REPORT ---
EXAM DESCRIPTION: CT - Chest For Pe Angio - 06/17/2019 10:43 am CLINICAL HISTORY: Chest pain. RO PE COMPARISON: No comparisons TECHNIQUE: CT angiogram of the pulmonary arteries was performed with MIP. All CT scans are performed using dose optimization technique as appropriate and may include automated exposure control or mA/KV adjustment according to patient size. FINDINGS: No evidence of pulmonary thromboembolism. No acute aortic finding demonstrated. The lungs are clear. No significant pericardial or pleural fluid. No concerning bony finding. Partially imaged low-density hepatic lesions are present, incompletely as sessed. Benign etiology such as cyst or hemangioma is favored, however. IMPRESSION: No evidence of pulmonary thromboembolism. No acute lung findings.
--- NOTE | 2019-06-17 11:01 | ECHO ---
HEIGHT: 5 ft 4 in WEIGHT: 172 lb 0 oz DATE OF STUDY: 06/17/[address]: Yevgeniy Patton MD 2-DIMENSIONAL: YES M.MODE: YES DOPPLER: YES COLOR FLOW: YES TDS: YES PORTABLE: NO DEFINITY: NO BUBBLE STUDY: NO DIAGNOSIS: SHORTNESS OF BREATH CARDIAC HISTORY: CATHERIZATION: NO SURGERY: NO PROSTHETIC VALVE: NO PACEMAKER: NO MEASUREMENTS (cm) DIASTOLIC (NORMALS) SYSTOLIC (NORMALS) IVSd 1.0 (0.6-1.2) LA Diam 2.7 (1.9-4.0) LVEF 65% LVIDd 3.3 (3.5-5.7) LVIDs 2.1 (2.0-3.5) %FS 34% LVPWd 1.0 (0.6-1.2) Ao Diam 2.6 (2.0-3.7) 2 DIMENSIONAL ASSESSMENT: RIGHT ATRIUM: NORMAL LEFT ATRIUM: NORMAL RIGHT VENTRICLE: NORMAL LEFT VENTRICLE: NORMAL TRICUSPID VALVE: NORMAL MITRAL VALVE: NORMAL PULMONIC VALVE: NORMAL AORTIC VALVE: NORMAL PERICARDIAL EFFUSION: NONE AORTIC ROOT: NORMAL LEFT VENTRICULAR WALL MOTION: NORMAL DOPPLER/COLOR FLOW: NORMAL COMMENTS: NORMAL 2D ECHOCARDIOGRAM WITH DOPPLER. TECHNOLOGIST: Judy HERNANDEZ
[2019-06-17] MEDS: ROFLUMILAST 500 MCG TABLET PO SCH (11:35)
--- NOTE | 2019-06-17 11:54 | P.PN ---
Subjective Date of Service: 06/17/19 Chief Complaint: Asthma exacerbation Patient's condition is stable she is still has shortness of breath on exertion wheezing Review of Systems General: Weakness Respiratory: Cough, Shortness of Breath Physical Examination - Vital Signs Temperature: 97.1 F Blood Pressure: 139/65 Pulse: 60 Respirations: 19 Pulse Ox (%): 98 - Physical Exam General: Alert, Oriented x3, Moderate distress Respiratory: Expiratory wheezes Cardiovascular: No edema, Normal S1 S2 Assessment & Plan - Problems (Diagnosis) (1) Asthma exacerbation Current Visit: No Status: Acute Plan: Patient had severe asthma exacerbation there is no evidence of thromboembolism on the CT scan echocardiogram is normal suggest discharge continue with prednisone 10 mg twice a day for at least 2 weeks nebulized bronchodilators at home patient will not qualify for home O2 sat is 94% on room air follow with me in 2 weeks Qualifiers: Asthma severity: moderate
--- NOTE | 2019-06-17 17:25 | P.PN ---
Subjective Date of Service: 06/17/19 Chief Complaint: Asthma exacerbation Subjective: Improving Patient seen and examined at bedside. chart reviewed and case discussed with nursing staff. Patient reports improvement in breathing this am. Weaning off of oxygen. No acute events noted overnight. Review of Systems 10-point ROS is otherwise unremarkable Physical Examination - Vital Signs Temperature: 97.3 F Blood Pressure: 125/67 Pulse: 80 Respirations: 19 Pulse Ox (%): 95 - Physical Exam General: Alert, In no apparent distress HEENT: Atraumatic, PERRLA, EOMI Neck: Supple, JVD not distended Respiratory: Clear to auscultation bilaterally, Normal air movement Cardiovascular: Regular rate/rhythm, Normal S1 S2 Gastrointestinal: Normal bowel sounds, No tenderness Musculoskeletal: No tenderness Integumentary: No rashes Neurological: Normal speech, Normal tone, Normal affect Lymphatics: No axilla or inguinal lymphadenopathy Assessment And Plan - Current Problems (Diagnosis) (1) Hypoxemia Current Visit: Yes Status: Acute (2) Asthma exacerbation Current Visit: No Status: Acute Qualifiers: Asthma severity: moderate - Plan Plan: 1. Continue with albuterol and Atrovent nebs 2. Continue with IV steroids 3. She will need Outpatient pulmonary function testing 4. Pulmonary consultation, recommendations appreciated. 5. Room air O2 sats , wean oxygen as tolerated. 6. GI and DVT prophylaxis 7.IV antibiotics to PO antibiotics, complete a [address] chest engatiev for PE, ECHO normal, normal Blood gases. Disposition: anticipate discharge once patient weaned off of oxygen. Anticipating discharge tomorrow.
[2019-06-17] MEDS: ROPINIROLE HCL 0.25 MG TAB PO SCH (20:55)
[2019-06-17] MEDS: MAGNESIUM OXIDE 400 MG TAB PO SCH (20:56)
[2019-06-17] MEDS: ATORVASTATIN 20 MG TAB PO SCH (20:56)
[2019-06-18] MEDS: ALBUTEROL 2.5 MG/3 ML NEB SOL NEB SCH ×3 (01:30→13:40)
[2019-06-18] MEDS: IPRATROPIUM BROM 0.5MG/2.5ML NEB SCH ×3 (01:30→13:40)
[2019-06-18] MEDS: BUPROPION HCL PO SCH (09:00)
[2019-06-18] MEDS: NALTREXONE HCL PO SCH (09:00)
[2019-06-18] MEDS: HOME MED 1 EA UNK (Umeclidinium Bromide [Incruse Ellipta] 1 PUFF) IN SCH (09:00)
[2019-06-18] MEDS: HOME MED 1 EA UNK (Budesonide/Formoterol Fumarate [Symbicort 160-4.5 Mcg Inhaler] 1 PUFF) IN SCH (09:00)
[2019-06-18] MEDS: ENOXAPARIN 40 MG/0.4 ML SQ SCH (09:00)
[2019-06-18] MEDS: ROFLUMILAST 500 MCG TABLET PO SCH (09:45)
[2019-06-18] MEDS: GABAPENTIN 300 MG CAP PO SCH (09:45)
[2019-06-18] MEDS: AZITHROMYCIN 250 MG TAB PO SCH (09:45)
[2019-06-18] MEDS: METHYLPREDNISOLONE 40 MG INJ IV SCH (09:45)
[2019-06-18 12:06] VITALS: BP 145/64; TEMP 98.6
--- NOTE | 2019-06-18 12:15 | P.PN ---
Subjective Date of Service: 06/18/19 Chief Complaint: Asthma exacerbation Patient is doing slightly better complaining of severe coughing spells last night is ambulating room-air sats satisfactory Review of Systems General: Weakness Respiratory: Cough, Shortness of Breath Physical Examination - Vital Signs Temperature: 98.6 F Blood Pressure: 145/64 Pulse: 74 Respirations: 18 Pulse Ox (%): 92 - Physical Exam General: Alert, Oriented x3, Mild distress Neck: Supple Respiratory: Expiratory wheezes Cardiovascular: No edema, Regular rate/rhythm, Normal S1 S2 Gastrointestinal: Normal bowel sounds, Soft and benign Assessment & Plan - Problems (Diagnosis) (1) Asthma exacerbation Current Visit: No Status: Acute Plan: Patient admitted with severe asthma exacerbation patient to continue with the current bronchodilator therapy consider discharge with prednisone 10 mg twice a day for at least 2 weeks also continue with the dial arrest 250 mg once a day and Zithromax 250 mg once a day for at least another 10 days of syrup consider discharge echocardiogram normal no evidence of thromboembolism normal echo follow with me in 2 weeks Qualifiers: Asthma severity: moderate
--- NOTE | 2019-06-18 14:02 | P.DS ---
Admission Date: 06/16/19 Discharge Date: 06/18/19 Disposition: ROUTINE DISCHARGE Discharge Condition: FAIR Reason for Admission: Asthma exacerbation Consultations: Pulmonology - Problems (1) Hypoxemia Current Visit: Yes Status: Acute (2) Asthma exacerbation Current Visit: No Status: Acute Qualifiers: Asthma severity: moderate Brief History of Present Illness: Patient is a 63yo female with dyspnea and hypoxemia. Patient has a history of COPD exacerbation. Patient is on nebs and Symbicort. Patient was not improving so she came into the hospital for further evaluation. Patient was found have a O2 sats of 80%. She was placed on O2. After giving multiple breathing treatments and steroids her symptoms have slowly improved. She will be admitted to the hospital for further evaluation. Will get pulmonary consultation. She will need pulmonary function testing. She has a 11 year smoking history but quit at the age of 26. Prior to that she was exposed to secondhand smoke from her parents. 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 She will probably need to be off work for at about 1 week to assist with her breathing improving. Hospital Course: Patient was admitted for further evaluation management. She was started on nebulizer treatments. She was started on IV steroids. Pulmonology was consulted. She was provided with supportive care with oxygen as needed. She was weaned off of oxygen prior to discharge. An echocardiogram was done, which was normal and a CT scan of the chest was also done, which was negative for pulmonary embolism or dissection or any other acute abnormalities. Her antibiotics was switched over to oral antibiotics. She was then cleared for discharge by pulmonology. Her diagnoses and treatment plan was explained to her , all questions were answered and she verbalized understanding. She was then discharged home in a safe and stable manner. She was discharged on oral azithromycin, nebulizer treatments as well as Daliresp and Symbicort. She will follow up with pulmonology in 2 weeks. Vital Signs/Physical Exam: Temp Pulse Resp BP Pulse Ox 98.6 F 74 18 145/64 H 92 06/18/19 12:15 06/18/19 12:15 06/18/19 12:15 06/18/19 12:15 06/18/19 12:15 General: Alert, In no apparent distress HEENT: Atraumatic, PERRLA, EOMI Neck: Supple, JVD not distended Respiratory: Clear to auscultation bilaterally, Normal air movement Cardiovascular: Regular rate/rhythm, Normal S1 S2 Gastrointestinal: Normal bowel sounds, No tenderness Musculoskeletal: No tenderness Integumentary: No rashes Neurological: Normal speech, Normal tone, Normal affect Lymphatics: No axilla or inguinal lymphadenopathy Laboratory Data at Discharge: WBC 7.8 K/uL (4.3-10.9) 06/15/19 04:40 Hgb 13.1 g/dL (12.0-15.0) 06/15/19 04:40 Hct 38.1 % (36.0-45.0) 06/15/19 04:40 Plt Count 406 K/uL (152-406) 06/15/19 04:40 PT 12.0 SECONDS (9.5-12.5) 06/14/19 21:15 INR 1.02 06/14/19 21:15 Sodium 141 mmol/L (136-145) 06/15/19 04:40 Potassium 4.2 mmol/L (3.5-5.1) 06/15/19 04:40 BUN 15 mg/dL (7-18) 06/15/19 04:40 Creatinine 1.03 mg/dL (0.55-1.3) 06/15/19 04:40 Glucose 167 mg/dL (74-106) H 06/15/19 04:40 Phosphorus 3.6 mg/dL (2.5-4.9) 06/15/19 04:40 Magnesium 2.4 mg/dL (1.8-2.4) 06/15/19 04:40 Total Bilirubin 0.3 mg/dL (0.2-1.0) 06/15/19 04:40 AST 20 U/L (15-37) 06/15/19 04:40 ALT 28 U/L (12-78) 06/15/19 04:40 Alkaline Phosphatase 99 U/L (45-117) 06/15/19 04:40 Troponin I < 0.02 ng/mL (0.0-0.045) 06/15/19 04:40 Home Medications: Albuterol Neb [Proventil 0.083% Neb Soln] 0.6 mg IH Q2HP PRN 06/15/19 Albuterol Sulfate [Proair Hfa] 2 puff IH Q4H 06/15/19 Atorvastatin Calcium [Lipitor] 20 mg PO DAILY 06/15/19 Budesonide/Formoterol Fumarate [Symbicort 160-4.5 Mcg Inhaler] 1 puff IN BID Gabapentin 600 mg PO BID 06/15/19 Magnesium Oxide [Magnesium] 500 mg PO BEDTIME 06/15/19 Naltrexone HCl/Bupropion HCl [Contrave ER 8-90 mg Tablet] 50 mg PO DAILY Ropinirole HCl 0.5 mg PO BEDTIME 06/15/19 Umeclidinium [place] [Incruse Ellipta] 1 puff IN DAILY 06/15/19 Umeclidinium [place] [Incruse Ellipta] 62.5 mcg IH DAILY 30 Days blst.w.dev Albuterol Neb [Proventil 0.083% Neb Soln] 2.5 mg NEB [id number] #2 amp 06/18/19 Azithromycin Tab [Zithromax*] 500 mg PO DAILY #10 tab 06/18/19 Roflumilast [Daliresp*] 500 mcg PO DAILY #30 tablet 06/18/19 predniSONE [Deltasone*] 10 mg PO BID #20 tab 06/18/19 New Medications: Albuterol Neb [Proventil 0.083% Neb Soln] 2.5 mg NEB [id number] #2 amp Azithromycin Tab [Zithromax*] 500 mg PO DAILY #10 tab predniSONE [Deltasone*] 10 mg PO BID #20 tab Roflumilast [Daliresp*] 500 mcg PO DAILY #30 tablet Umeclidinium [place] [Incruse Ellipta] 62.5 mcg IH DAILY 30 Days blst.w.dev Patient Discharge Instructions: Patient to either take Breo or Symbicort. Please follow up with Dr. Roper in 2 weeks. Please follow up with the primary care physician in 2-3 days. Return to the emergency room for worsening symptoms Diet: AHA Activity: Ad darrel Followup: Yevgeniy Patton MD [ACTIVE - CAN ADMIT] - Time spent managing pt's care (in minutes): 55
[2019-06-18 14:59] VITALS: O2SAT 93
[2019-06-18] MEDS ORDERED: predniSONE 20 MG TAB PO SCH (21:00)
== END 2019-06-18 17:31 | disposition home or self-care (01) | DRG 191 ==
LOC: ER 21:08 → ERHOLD 23:18 → 4TH 06-15 00:16 → OBSVTOIN 06-16 11:30
PROVIDERS: ADMIT Hospitalist; ATTEND Hospitalist
DX: J44.9 Chronic obstructive pulmonary disease, unspecified (principal); J45.901 Unspecified asthma with (acute) exacerbation; R09.02 Hypoxemia; I10 Essential (primary) hypertension; M79.7 Fibromyalgia; R06.89 Other abnormalities of breathing; Z87.891 Personal history of nicotine dependence
CPT/HCPCS: 36415; 71045; 71275; 80048; 80053; 80076; 81003; 82805; 83605; 83735; 83880; 84100; 84145; 84484; 85025; 85379; 85610; 93005; 93306; 94640; 94660; 94760; 96365; 96375; 99285; G0378; J0456; J0696; J1650; J2920; J2930; J3475; Q9967

== ENCOUNTER 2019-07-24 11:47 | Inpatient (IN) | payer BC ==
[2019-07-24 12:31] LABS: Absolute Lymphocytes (CBC) 1.7 K/uL (0.7-4.9); Basophils % 0.9 % (0-1.3); Hematocrit 40.3 % (36.0-45.0); Lymphocytes % 15.5 % (15.3-44.8); MPV 8.3 fL (7.6-11.3)
[2019-07-24 12:34] LABS: Protime INR 1.01
--- NOTE | 2019-07-24 12:39 | ER ---
Nurse's Notes [facility] Name: Ivonne Pritchett Age: 63 yrs Sex: Female : 1955 Arrival Date: 07/24/2019 Time: 11:49 Bed 8 Private MD: Stew Leyva B Diagnosis: Chronic obstructive pulmonary disease with (acute) exacerbation;Hypoxemia;Dyspnea Presentation: 07/24 11:52 Presenting complaint: Patient states: She started having cough, congestion on Saturday. aj1 Last night she started feeling short of breath and today it has gotten even worse. Patient reports productive cough. Transition of care: patient was not received from another setting of care. Onset of symptoms was 2018. Risk Assessment: Do you want to hurt yourself or someone else? Patient reports no desire to harm self or others. Initial Sepsis Screen: Does the patient meet any 2 criteria? RR > 20 per min. HR > 90 bpm. Yes Does the patient have a suspected source of infection? Yes: Productive cough/pneumonia. Care prior to arrival: None. 11:52 Method Of Arrival: Wheelchair aj1 11:52 Acuity: MARY 2 aj1 Triage Assessment: 15:30 General: Appears in no apparent distress. comfortable, Behavior is cooperative, bp appropriate for age, anxious. Respiratory: Reports shortness of breath cough that is Onset: The symptoms/episode began/occurred 3 DAYS, the patient has moderate shortness of breath. Historical: - Allergies: 11:54 NKA; aj1 - Home Meds: 11:54 amlodipine 2.5 mg tab 1 tab once daily [Active]; atorvastatin Oral [Active]; Cymbalta aj1 60 mg Oral cpDR 1 cap once daily [Active]; gabapentin 600 mg Oral tab 1 tab nightly [Active]; gabapentin Oral [Active]; irbesartan Oral [Active]; Requip Oral [Active]; Wellbutrin Oral [Active]; - PMHx: 11:54 Fibromyalgia; Hypertension; restless leg syndrome; aj1 - Immunization history:: Flu vaccine is not up to date. - Social history:: Smoking status: Patient/guardian denies using tobacco. - Ebola Screening: : Patient denies travel to an Ebola-affected area in the 21 days before illness onset. Screenin:19 Abuse screen: Denies threats or abuse. Denies injuries from another. Nutritional ss screening: No deficits noted. Tuberculosis screening: Never had TB. Fall Risk None identified. Assessment: 12:15 General: Appears distressed, uncomfortable, Behavior is calm, cooperative, Reports ss feeling ill for last night. Denies fever, fatigue, chills. Pain: Denies pain. Neuro: Level of Consciousness is awake, alert, obeys commands, Oriented to person, place, time, situation, Speech is normal, Pupils are PERRLA. Cardiovascular: Capillary refill is sluggish in bilateral fingers Rhythm is sinus tachycardia. Respiratory: Airway is patent Respiratory effort is even, labored, Respiratory pattern is symmetrical, tachypnea Breath sounds are diminished in left posterior lower lobe and right posterior lower lobe. GI: Patient currently denies abdominal pain, diarrhea, nausea, vomiting. : No signs and/or symptoms were reported regarding the genitourinary system. EENT: Oral mucosa is moist. Throat is clear. Derm: Skin is slight mottling noted to bilateral upper extremities. Skin temperature is cool. Musculoskeletal: Circulation, motion, and sensation intact. Range of motion: intact in all extremities, Swelling absent. 12:19 Reassessment: PAtient reports feeling much better after Administration of O2 VIA NC ss Patient states feeling better. Patient states symptoms have improved. 14:30 Reassessment: Dr. Houston has seen and assessed patient. Awaiting room assignment for ss admission. Pt reports feeling better at this time. 15:53 Reassessment: ADMIT COMPLETE, PT JERMAINE. bp Vital Signs: 11:54 BP 141 / 103; Pulse 103; Resp 34; Temp 98.0; Pulse Ox 90% on R/A; Weight 76.2 kg (R); aj1 Height 5 ft. 4 in. (162.56 cm) (R); Pain 0/10; 14:31 Pulse 97; Resp 21 S; Pulse Ox 96% on 4 lpm NC; Pain 0/10; ss 14:41 BP 141 / 74; Pulse 93; Resp 24; Pulse Ox 95% on NC; ms 15:29 BP 138 / 74; Pulse 93; Resp 29; Pulse Ox 96% ; bp 15:50 BP 147 / 91; Pulse 88; Resp 26; Pulse Ox 99% ; bp 11:54 Body Mass Index 28.84 (76.20 kg, 162.56 cm) aj1 ED Course: 11:49 Patient arrived in ED. mr 11:49 Stew Leyva MD is Private Physician. mr 11:54 Triage completed. aj1 11:54 Arm band placed on Patient placed in an exam room. aj1 11:56 Librado Dover MD is Attending Physician. selena 12:00 Inserted saline lock: 22 gauge in right antecubital area, using aseptic technique. ss Blood collected. 12:00 Inserted saline lock: 22 gauge in left hand, using aseptic technique. Blood collected. ss 12:15 Tres Parada, RN is Primary Nurse. bp 12:19 Patient has correct armband on for positive identification. Bed in low position. Call ss light in reach. 12:36 Collins Houston is Hospitalizing Provider. selena 12:39 XRAY Chest (1 view) In Process Unspecified. EDMS 12:51 EKG done, by boiler service technician. reviewed by Librado Dover MD. sm3 13:39 Jackelin Lai, RN is Primary Nurse. bp 15:30 No provider procedures requiring assistance completed. Patient admitted, IV remains in bp place. Administered Medications: 13:00 Drug: Albuterol - atroVENT (3:1) (2.5 mg - 0.5 mg) 3 ml Route: Nebulizer; ss 14:04 Follow up: Response: No adverse reaction; No change in condition ss 13:02 Drug: SOLU-Medrol 125 mg Route: IVP; Site: left hand; ss 14:04 Follow up: Response: No adverse reaction ss 13:04 Drug: Pepcid 20 mg Route: IVP; Site: left hand; ss 14:04 Follow up: Response: No adverse reaction ss 13:09 Drug: Rocephin 1 grams Route: IV; Rate: per protocol; Site: right hand; ss 13:12 Follow up: IV Status: Completed infusion ss 14:04 Drug: Zithromax 500 mg Route: IVPB; Infused Over: 1 hrs; Site: left hand; ss 15:52 Follow up: IV Status: Completed infusion; IV Intake: 250ml bp 14:04 Drug: Albuterol 5 mg Route: Inhalation; ss 14:04 Drug: Decadron - Dexamethasone 10 mg Route: IVP; Site: left hand; ss 15:50 Follow up: BP 147 / 91; Pulse 88 bpm; Resp 26 bpm; Pulse Ox 99% bp Intake: 15:52 IV: 250ml; Total: 250ml. bp Outcome: 12:38 Decision to Hospitalize by Provider. selena 15:47 Admitted to Med/surg accompanied by tech, via wheelchair, with oxygen, Report called to bp JONATAN HEAD 15:47 Condition: stable 15:47 Instructed on the need for admit. 15:53 Patient left the ED. bp Signatures: Dispatcher [employer] EDArabella Lea, RN RN aj1 Librado Dover MD MD cha Rivera, Marti mr Almaz, Jackelin Rodriguez ms, RN RN ss Peltier, Brian RN RN Margot Castano 3 Corrections: (The following items were deleted from the chart) 13:10 13:02 SOLU-Medrol 125 mg IVP in right hand [facility] 14:05 14:04 IV Status: Completed infusion [facility]
--- NOTE | 2019-07-24 12:39 | EDPHYS ---
Physician Documentation [facility] Name: Ivonne Pritchett Age: 63 yrs Sex: Female : 1955 Arrival Date: 07/24/2019 Time: 11:49 Bed 8 Private MD: Stew Leyva B ED Physician Librado Dover HPI: 07/24 12:32 This 63 yrs old Female presents to ER via Wheelchair with complaints of selena Breathing Difficulty. 12:32 The patient has shortness of breath at rest, with light activity. Onset: The selena symptoms/episode began/occurred 2 day(s) ago. Duration: The symptoms are continuous, and are steadily getting worse. The patient's shortness of breath is aggravated by coughing, talking, walking, is alleviated by elevating head, pursed lip breathing, rest, sitting up, application of supplemental oxygen. Associated signs and symptoms: Pertinent positives: non-productive cough, dizziness, nausea. Severity of symptoms: At their worst the symptoms were moderate in the emergency department the symptoms are unchanged. The patient has experienced similar episodes in the past, a few times. Historical: - Allergies: 11:54 NKA; aj1 - Home Meds: 11:54 amlodipine 2.5 mg tab 1 tab once daily [Active]; atorvastatin Oral [Active]; Cymbalta aj1 60 mg Oral cpDR 1 cap once daily [Active]; gabapentin 600 mg Oral tab 1 tab nightly [Active]; gabapentin Oral [Active]; irbesartan Oral [Active]; Requip Oral [Active]; Wellbutrin Oral [Active]; - PMHx: 11:54 Fibromyalgia; Hypertension; restless leg syndrome; aj1 - Immunization history:: Flu vaccine is not up to date. - Social history:: Smoking status: Patient/guardian denies using tobacco. - Ebola Screening: : Patient denies travel to an Ebola-affected area in the 21 days before illness onset. ROS: 12:33 Constitutional: Negative for fever, chills, and weight loss, Eyes: Negative for injury, selena pain, redness, and discharge, ENT: Negative for injury, pain, and discharge, Neck: Negative for injury, pain, and swelling, Cardiovascular: Negative for chest pain, palpitations, and edema, Abdomen/GI: Negative for abdominal pain, nausea, vomiting, diarrhea, and constipation, Back: Negative for injury and pain, : Negative for injury, bleeding, discharge, and swelling, MS/Extremity: Negative for injury and deformity, Skin: Negative for injury, rash, and discoloration, Neuro: Negative for headache, weakness, numbness, tingling, and seizure, Psych: Negative for depression, anxiety, suicide ideation, homicidal ideation, and hallucinations, Allergy/Immunology: Negative for hives, rash, and allergies, Endocrine: Negative for neck swelling, polydipsia, polyuria, polyphagia, and marked weight changes, Hematologic/Lymphatic: Negative for swollen nodes, abnormal bleeding, and unusual bruising. 12:33 Respiratory: Positive for cough, shortness of breath, at rest. Exam: 12:33 Constitutional: This is a well developed, well nourished patient who is awake, alert, selena and in no acute distress. Head/Face: Normocephalic, atraumatic. Eyes: Pupils equal round and reactive to light, extra-ocular motions intact. Lids and lashes normal. Conjunctiva and sclera are non-icteric and not injected. Cornea within normal limits. Periorbital areas with no swelling, redness, or edema. ENT: Nares patent. No nasal discharge, no septal abnormalities noted. Tympanic membranes are normal and external auditory canals are clear. Oropharynx with no redness, swelling, or masses, exudates, or evidence of obstruction, uvula midline. Mucous membranes moist. Neck: Trachea midline, no thyromegaly or masses palpated, and no cervical lymphadenopathy. Supple, full range of motion without nuchal rigidity, or vertebral point tenderness. No Meningismus. Chest/axilla: Normal chest wall appearance and motion. Nontender with no deformity. No lesions are appreciated. Cardiovascular: Regular rate and rhythm with a normal S1 and S2. No gallops, murmurs, or rubs. Normal PMI, no JVD. No pulse deficits. Abdomen/GI: Soft, non-tender, with normal bowel sounds. No distension or tympany. No guarding or rebound. No evidence of tenderness throughout. Back: No spinal tenderness. No costovertebral tenderness. Full range of motion. Female : Normal external genitalia. Skin: Warm, dry with normal turgor. Normal color with no rashes, no lesions, and no evidence of cellulitis. MS/ Extremity: Pulses equal, no cyanosis. Neurovascular intact. Full, normal range of motion. Neuro: Awake and alert, GCS 15, oriented to person, place, time, and situation. Cranial nerves II-XII grossly intact. Motor strength 5/5 in all extremities. Sensory grossly intact. Cerebellar exam normal. Normal gait. Psych: Awake, alert, with orientation to person, place and time. Behavior, mood, and affect are within normal limits. 12:33 Respiratory: mild respiratory distress is noted, moderate respiratory distress is noted, Respirations: labored breathing, that is moderate, Breath sounds: rhonchi, wheezing: inspiratory expiratory Vital Signs: 11:54 BP 141 / 103; Pulse 103; Resp 34; Temp 98.0; Pulse Ox 90% on R/A; Weight 76.2 kg (R); aj1 Height 5 ft. 4 in. (162.56 cm) (R); Pain 0/10; 14:31 Pulse 97; Resp 21 S; Pulse Ox 96% on 4 lpm NC; Pain 0/10; ss 14:41 BP 141 / 74; Pulse 93; Resp 24; Pulse Ox 95% on NC; ms 15:29 BP 138 / 74; Pulse 93; Resp 29; Pulse Ox 96% ; bp 15:50 BP 147 / 91; Pulse 88; Resp 26; Pulse Ox 99% ; bp 11:54 Body Mass Index 28.84 (76.20 kg, 162.56 cm) [facility] MDM: 11:56 Patient medically screened. [facility] 12:33 Data reviewed: vital signs, nurses notes, lab test result(s), radiologic studies, plain selena films. 07/24 11:56 Order name: Basic Metabolic Panel; Complete Time: 13:41 [facility] 07/24 11:56 Order name: CBC with Diff; Complete Time: 13:41 [facility] 07/24 11:56 Order name: LFT's; Complete Time: 13:41 [facility] 07/24 11:56 Order name: Magnesium; Complete Time: 13:41 [facility] 07/24 11:56 Order name: NT PRO-BNP; Complete Time: 13:41 [facility] 07/24 11:56 Order name: PT-INR; Complete Time: 13:41 [facility] 07/24 11:56 Order name: Troponin (emerg Dept Use Only); Complete Time: 13:41 [facility] 07/24 11:56 Order name: XRAY Chest (1 view); Complete Time: 13:41 [facility] 07/24 11:56 Order name: Blood Culture Adult (2) [facility] 07/24 12:19 Order name: Lactate; Complete Time: 13:41 07/24 12:32 Order name: Influenza Screen (a \T\ B); Complete Time: 13:41 [facility] 07/24 13:59 Order name: Urine Dipstick--Ancillary (enter results) 07/24 11:56 Order name: EKG; Complete Time: 11:58 [facility] 07/24 11:56 Order name: Cardiac monitoring; Complete Time: 12:20 [facility] 07/24 11:56 Order name: EKG - Nurse/Tech; Complete Time: 12:20 [facility] 07/24 11:56 Order name: IV Saline Lock; Complete Time: 12:21 [facility] 07/24 11:56 Order name: Labs collected and sent; Complete Time: 12:20 [facility] 07/24 11:56 Order name: O2 Per Protocol; Complete Time: 12:20 [facility] 07/24 11:56 Order name: O2 Sat Monitoring; Complete Time: 12:20 [facility] Administered Medications: 13:00 Drug: Albuterol - atroVENT (3:1) (2.5 mg - 0.5 mg) 3 ml Route: Nebulizer; ss 14:04 Follow up: Response: No adverse reaction; No change in condition ss 13:02 Drug: SOLU-Medrol 125 mg Route: IVP; Site: left hand; ss 14:04 Follow up: Response: No adverse reaction ss 13:04 Drug: Pepcid 20 mg Route: IVP; Site: left hand; ss 14:04 Follow up: Response: No adverse reaction ss 13:09 Drug: Rocephin 1 grams Route: IV; Rate: per protocol; Site: right hand; ss 13:12 Follow up: IV Status: Completed infusion ss 14:04 Drug: Zithromax 500 mg Route: IVPB; Infused Over: 1 hrs; Site: left hand; ss 15:52 Follow up: IV Status: Completed infusion; IV Intake: 250ml bp 14:04 Drug: Albuterol 5 mg Route: Inhalation; ss 14:04 Drug: Decadron - Dexamethasone 10 mg Route: IVP; Site: left hand; ss 15:50 Follow up: BP 147 / 91; Pulse 88 bpm; Resp 26 bpm; Pulse Ox 99% bp Disposition: 07/24/19 12:38 Hospitalization ordered by Collins Houston for Inpatient Admission. Preliminary diagnosis are Chronic obstructive pulmonary disease with (acute) exacerbation, Hypoxemia, Dyspnea. - Bed requested for Telemetry/MedSurg (Inpatient). - Status is Inpatient Admission. bp - Condition is Fair. - Problem is new. - Symptoms have improved. UTI on Admission? No Signatures: Dispatcher [employer] EDMS Arabella Blankenship RN RN aj1 Librado oDver MD MD cha Smirch, Shelby RN RN Javon Riojas RN RN ja1 Tres Parada RN RN Kala Doan Corrections: (The following items were deleted from the chart) 13:38 12:38 Hospitalization Ordered by Collins Houston for Inpatient Admission. Preliminary eb diagnosis is Chronic obstructive pulmonary disease with (acute) exacerbation; Hypoxemia; Dyspnea. Bed requested for Telemetry/MedSurg (Inpatient). Status is Inpatient Admission. Condition is Fair. Problem is new. Symptoms have improved. UTI on Admission? No. selena 15:06 13:38 07/24/2019 12:38 Hospitalization Ordered by Collins Houston for Inpatient ja1 Admission. Preliminary diagnosis is Chronic obstructive pulmonary disease with (acute) exacerbation; Hypoxemia; Dyspnea. Bed requested for Telemetry/MedSurg (Inpatient). Status is Inpatient Admission. Condition is Fair. Problem is new. Symptoms have improved. UTI on Admission? No. eb 15:53 15:06 07/24/2019 12:38 Hospitalization Ordered by Collins Houston for Inpatient bp Admission. Preliminary diagnosis is Chronic obstructive pulmonary disease with (acute) exacerbation; Hypoxemia; Dyspnea. Bed requested for Telemetry/MedSurg (Inpatient). Status is Inpatient Admission. Condition is Fair. Problem is new. Symptoms have improved. UTI on Admission? No. ja1
[2019-07-24 12:49] LABS: ALT/SGPT 26 U/L (12-78); AST/SGOT 19 U/L (15-37); Albumin 3.9 g/dL (3.4-5.0); Alkaline Phosphatase 93 U/L (45-117); BUN Blood Urea Nitrogen 13 mg/dL (7-18); Bicarbonate 31 mmol/L (21-32); Bilirubin Direct 0.1 mg/dL (0-0.2); Bilirubin Total 0.4 mg/dL (0.2-1.0); Glucose Level 127 mg/dL (74-106); Magnesium 2.3 mg/dL (1.8-2.4); NT PRO-BNP 322 pg/mL (<125); Potassium 4.1 mmol/L (3.5-5.1); Protein, Total 7.2 g/dL (6.4-8.2); Sodium Level 141 mmol/L (136-145); Troponin (Emerg Dept Use Only) < 0.02 ng/mL (0.0-0.045)
--- NOTE | 2019-07-24 12:50 | RAD REPORT ---
EXAM DESCRIPTION: RAD - Chest Single View - 07/24/2019 12:38 pm CLINICAL HISTORY: COUGH Chest pain. COMPARISON: <Comparisons> FINDINGS: Portable technique limits examination quality. The lungs are grossly clear. The heart is normal in size. No displaced fractures. IMPRESSION: No acute intrathoracic process suspected.
[2019-07-24] MEDS ORDERED: METHYLPREDNISOLONE 125 MG INJ ONE (12:54)
[2019-07-24] MEDS ORDERED: CEFTRIAXONE/SWI 1gm 1 GM/10 ML SYR ONE (12:54)
[2019-07-24] MEDS ORDERED: ALBUTEROL 2.5 MG/3 ML NEB SOL ONE ×2 (12:54→13:57)
[2019-07-24] MEDS ORDERED: IPRATROPIUM BROM 0.5MG/2.5ML ONE (12:54)
[2019-07-24] MEDS ORDERED: FAMOTIDINE 20 MG/2 ML VIAL IV ONE (12:54)
[2019-07-24] MEDS ORDERED: AZITHROMYCIN IV 500 MG in NA CHLORIDE 0.9% 250 ML IVPB ONE (13:00)
[2019-07-24] MEDS ORDERED: dexAMETHasone 10 MG/ML VIAL ONE (13:57)
--- NOTE | 2019-07-24 15:09 | P.HP ---
Certification for Inpatient Patient admitted to: Inpatient With expected LOS: >2 Midnights Practitioner: I am a practitioner with admitting privileges, knowledge of patient current condition, hospital course, and medical plan of care. Services: Services provided to patient in accordance with Admission requirements found in Title 42 Section 412.3 of the Code of Federal Regulations Patient History Date of Service: 07/24/19 Reason for admission: Shortness of breath and wheezing. History of Present Illness: 63-year-old woman with a history of COPD presented to the emergency department with the complaint progressive shortness of breath and wheezing over 2 days duration. The patient cannot think of any precipitating factor. She used her nebulizers without improvement. She reports cough productive of greenish sputum. She denies any fever or chills or chest pain. Patient noted to be dyspneic, and hypoxic in the ED. She is afebrile. She was given nebulizer treatment in the ED with partially improvement. Chest x-ray report is no acute disease. She has no leukocytosis. Patient is admitted for further management of COPD exacerbation. Allergies No Known Allergies Allergy (Verified 09/17/13 22:55) Home Medications: Albuterol Neb [Proventil 0.083% Neb Soln] 0.6 mg IH Q2HP PRN 06/15/19 Albuterol Sulfate [Proair Hfa] 2 puff IH Q4H 06/15/19 Atorvastatin Calcium [Lipitor] 20 mg PO DAILY 06/15/19 Budesonide/Formoterol Fumarate [Symbicort 160-4.5 Mcg Inhaler] 1 puff IN BID Gabapentin 600 mg PO BID 06/15/19 Magnesium Oxide [Magnesium] 500 mg PO BEDTIME 06/15/19 Naltrexone HCl/Bupropion HCl [Contrave ER 8-90 mg Tablet] 50 mg PO DAILY Ropinirole HCl 0.5 mg PO BEDTIME 06/15/19 Umeclidinium [place] [Incruse Ellipta] 1 puff IN DAILY 06/15/19 Umeclidinium [place] [Incruse Ellipta] 62.5 mcg IH DAILY 30 Days blst.w.dev Albuterol Neb [Proventil 0.083% Neb Soln] 2.5 mg NEB [id number] #2 amp 06/18/19 Azithromycin Tab [Zithromax*] 500 mg PO DAILY #10 tab 06/18/19 Roflumilast [Daliresp*] 500 mcg PO DAILY #30 tablet 06/18/19 predniSONE [Deltasone*] 10 mg PO BID #20 tab 06/18/19 - Past Medical/Surgical History Diabetic: No -: diverticulitis -: fibromyalgia -: htn, -: high cholesterol -: RLS -: zackary -: tubal ligation -: "pelvic prolapse surgery" - Family History Father -: Hypertension, Cancer Mother -: Hypertension, Diabetes, Stroke Brother -: Hypertension, Stroke - Social History Smoking Status: Former smoker Alcohol use: Yes CD- Drugs: No Caffeine use: Yes Review of Systems Other: General: No fever, no malaise, no unintentional weight loss. Eyes: No eye discharge, CVS: No chest pain, no palpitation, no lightheadedness. GI: No abdominal pain, no nausea no vomit, no constipation, no diarrhea. Genitourinary: No dysuria, no urinary frequency, no incontinence, no hematuria. Musculoskeletal: No joint pains, or joint swelling, no gait instability. Neurology: No headache, no asymmetric, weakness, no problem with swallowing. Except as documented, all other systems reviewed and negative. Physical Examination - Physical Exam General: Alert, Oriented x3, Moderate distress HEENT: PERRLA, Mucous membr. moist/pink, Sclerae nonicteric Neck: Supple, JVD not distended, No Thyromegaly Respiratory: Diminished (Diffuse), Expiratory wheezes Cardiovascular: No edema, Regular rate/rhythm, Normal S1 S2, No murmurs Capillary refill: <2 Seconds Gastrointestinal: Normal bowel sounds, Soft and benign, Non-distended, No tenderness Musculoskeletal: No swelling, No erythema Integumentary: No rashes Neurological: Normal speech, Normal strength at 5/5 x4 extr - Studies Laboratory Data (last 24 hrs) 07/24/19 12:12: PT 11.9, INR 1.01 07/24/19 12:12: WBC 10.8, Hgb 13.9, Hct 40.3, Plt Count 396 07/24/19 12:12: Sodium 141, Potassium 4.1, BUN 13, Creatinine 0.87, Glucose 127 H, Magnesium 2.3, Total Bilirubin 0.4, AST 19, ALT 26, Alkaline Phosphatase 93 Assessment and Plan - Problems (Diagnosis) (1) Acute respiratory failure with hypoxia Current Visit: Yes Status: Acute (2) COPD with acute exacerbation Current Visit: No Status: Acute - Plan Admit to the medical floor Treat COPD exacerbation with scheduled nebs, IV steroids, IV Rocephin and Zithromax. Titrate oxygen BiPAP p.r.n. Sputum Gram stain and culture. Monitor for steroid induced hyperglycemia. - Advance Directives Does patient have a Living Will: No Does patient have a Durable POA for Healthcare: No
[2019-07-24 16:31] LABS: Urine Blood NEGATIVE (NEG); Urine Glucose NEGATIVE (NEG); Urine Protein NEGATIVE (NEG); Urine pH 5.5 (5.0-7.0)
[2019-07-24] MEDS ORDERED: ONDANSETRON 4 MG/2 ML VIAL IV PRN (16:31)
[2019-07-24] MEDS ORDERED: ACETAMINOPHEN 500 MG TAB PO PRN (16:31)
[2019-07-24] MEDS: NA CHLORIDE 0.9% 1,000 ML IV SCH (16:31)
[2019-07-24] MEDS: METHYLPREDNISOLONE 40 MG INJ IV SCH (18:00)
[2019-07-24] MEDS: ENOXAPARIN 40 MG/0.4 ML SQ SCH (19:57)
[2019-07-24] MEDS: IPRATROPIUM BROM 0.5MG/2.5ML NEB SCH (20:00)
[2019-07-24] MEDS: ALBUTEROL 2.5 MG/3 ML NEB SOL NEB SCH (20:00)
[2019-07-24] MEDS: GABAPENTIN 600 MG PO SCH (21:00)
[2019-07-24] MEDS: BUPROPION HCL 150 MG PO SCH (21:00)
[2019-07-24] MEDS: ROPINIROLE HCL 0.25 MG TAB PO SCH (21:00)
[2019-07-24] MEDS ORDERED: CEFTRIAXONE/SWI 1gm 1 GM/10 ML SYR IVP SCH (21:00)
[2019-07-24] MEDS ORDERED: INFLUENZA VACCINE (for 3y+) 0.5 ML DOSE IMVAC ONE (21:00)
[2019-07-24] MEDS ORDERED: HOME MED 1 EA UNK (Hydroxyzine Hcl [Atarax] 25 MG) PO SCH (21:00)
[2019-07-24] MEDS ORDERED: PNEUMOCOCCAL VACCINE 0.5 ML IMVAC ONE (21:00)
[2019-07-24] MEDS ORDERED: HOME MED 1 EA UNK (Magnesium Oxide [Magnesium] 500 MG) PO SCH (21:00)
[2019-07-25] MEDS: METHYLPREDNISOLONE 40 MG INJ IV SCH ×5 (00:14→23:49)
[2019-07-25] MEDS: IPRATROPIUM BROM 0.5MG/2.5ML NEB SCH ×4 (02:00→20:00)
[2019-07-25] MEDS: ALBUTEROL 2.5 MG/3 ML NEB SOL NEB SCH ×4 (02:00→20:00)
[2019-07-25 05:48] LABS: Basophils % 0.4 % (0-1.3); Hematocrit 39.1 % (36.0-45.0); Lymphocytes % 12.7 % (15.3-44.8); MPV 8.5 fL (7.6-11.3); RBC Red Blood Cell Count 4.35 M/uL (3.86-4.86)
[2019-07-25 05:58] LABS: Magnesium 2.4 mg/dL (1.8-2.4); Phosphorus 3.5 mg/dL (2.5-4.9); Potassium 4.1 mmol/L (3.5-5.1)
[2019-07-25 08:21] LABS: Blood Morphology Comment NOT SEEN (NOT SEEN); Platelet Estimate ADEQ; Urine White Blood Cell Casts OK
[2019-07-25] MEDS: GABAPENTIN 600 MG PO SCH ×2 (09:00→20:35)
[2019-07-25] MEDS ORDERED: CANDESARTAN CILEXETIL 32 MG PO SCH (09:00)
[2019-07-25] MEDS: AZITHROMYCIN IV 500 MG in NA CHLORIDE 0.9% 250 ML IVPB SCH ×2 (09:00→09:13)
[2019-07-25] MEDS: AMLODIPINE 5 MG TAB PO SCH (09:00)
[2019-07-25] MEDS ORDERED: ATORVASTATIN 40 MG TAB PO SCH (09:00)
[2019-07-25] MEDS: ROPINIROLE HCL 0.25 MG TAB PO SCH (09:00)
[2019-07-25] MEDS: BUPROPION HCL 150 MG PO SCH ×2 (09:00→20:36)
[2019-07-25] MEDS: ENOXAPARIN 40 MG/0.4 ML SQ SCH (09:13)
[2019-07-25] MEDS: CEFTRIAXONE/SWI 1gm 1 GM/10 ML SYR IVP SCH (09:14)
--- NOTE | 2019-07-25 10:52 | P.PN ---
Subjective Date of Service: 07/25/19 Chief Complaint: Shortness of breath and wheezing. The patient states she is doing better today. She states the shortness of breath have improved wheezing have decreased. She has nonproductive cough. She denies any chest pain. She has been afebrile. Physical Examination - Vital Signs Temperature: 97.4 F Blood Pressure: 164/82 Pulse: 97 Respirations: 18 Pulse Ox (%): 94 - Physical Exam General: Alert, In no apparent distress, Oriented x3 HEENT: Mucous membr. moist/pink Neck: Supple, JVD not distended Respiratory: Diminished, Expiratory wheezes (Mild scattered end-expiratory wheezes) Cardiovascular: No edema, Regular rate/rhythm, Normal S1 S2, No murmurs Gastrointestinal: Normal bowel sounds, Soft and benign, Non-distended, No tenderness Musculoskeletal: No swelling Integumentary: No rashes Neurological: Normal speech, Normal strength at 5/5 x4 extr - Studies Laboratory Data (last 24 hrs) 07/24/19 12:12: PT 11.9, INR 1.01 07/24/19 12:12: WBC 10.8, Hgb 13.9, Hct 40.3, Plt Count 396 07/24/19 12:12: Sodium 141, Potassium 4.1, BUN 13, Creatinine 0.87, Glucose 127 H, Magnesium 2.3, Total Bilirubin 0.4, AST 19, ALT 26, Alkaline Phosphatase 93 Assessment And Plan - Current Problems (Diagnosis) (1) Acute respiratory failure with hypoxia Current Visit: Yes Status: Acute (2) COPD with acute exacerbation Current Visit: No Status: Acute (3) Elevated blood pressure reading Current Visit: Yes Status: Acute - Plan Clinically improved Continue to treat COPD exacerbation with scheduled nebs, IV steroids, IV Rocephin. Changed oral Zithromax to IV due to burning sensation Titrate oxygen BiPAP p.r.n. Blood cutures are pending. Patient started on low dose amlodipine for elevated blood pressure.
[2019-07-25] MEDS: GUAIFENESIN/DM 5 ML UCUP PO PRN ×2 (13:14→20:33)
[2019-07-25] MEDS: AZITHROMYCIN 250 MG TAB PO SCH (15:22)
[2019-07-25] MEDS: NA CHLORIDE 0.9% 1,000 ML IV SCH (17:21)
[2019-07-25] MEDS: BENZONATATE 100 MG CAP PO PRN ×2 (17:24→22:26)
[2019-07-25] MEDS: HYDROXYZINE HCL 25 MG PO SCH (20:33)
[2019-07-25] MEDS: ROPINIROLE HCL 0.25 MG PO SCH (20:34)
[2019-07-25] MEDS: MAGNESIUM OXIDE 500 MG PO SCH (20:36)
[2019-07-26] MEDS: GUAIFENESIN/DM 5 ML UCUP PO PRN ×3 (01:35→23:43)
[2019-07-26] MEDS: ALBUTEROL 2.5 MG/3 ML NEB SOL NEB SCH ×4 (02:00→20:00)
[2019-07-26] MEDS: IPRATROPIUM BROM 0.5MG/2.5ML NEB SCH ×4 (02:00→20:00)
[2019-07-26] MEDS: METHYLPREDNISOLONE 40 MG INJ IV SCH ×3 (05:05→17:18)
[2019-07-26] MEDS: BENZONATATE 100 MG CAP PO PRN ×4 (05:05→23:43)
[2019-07-26 06:12] LABS: Absolute Lymphocytes (CBC) 1.3 K/uL (0.7-4.9); Basophils % 0.2 % (0-1.3); Hematocrit 36.6 % (36.0-45.0); Lymphocytes % 7.5 % (15.3-44.8); MPV 8.5 fL (7.6-11.3); RBC Red Blood Cell Count 4.06 M/uL (3.86-4.86)
[2019-07-26 06:24] LABS: Potassium 4.4 mmol/L (3.5-5.1)
[2019-07-26 07:05] LABS: Blood Morphology Comment NOT SEEN (NOT SEEN); Platelet Estimate ADEQ; Urine White Blood Cell Casts OK
[2019-07-26] MEDS: ENOXAPARIN 40 MG/0.4 ML SQ SCH (09:41)
[2019-07-26] MEDS: AMLODIPINE 5 MG TAB PO SCH (09:41)
[2019-07-26] MEDS: CEFTRIAXONE/SWI 1gm 1 GM/10 ML SYR IVP SCH (09:41)
[2019-07-26] MEDS: AZITHROMYCIN 250 MG TAB PO SCH (09:41)
[2019-07-26] MEDS: MAGNESIUM OXIDE 500 MG PO SCH ×2 (09:43→21:00)
[2019-07-26] MEDS: CANDESARTAN CILEXETIL 32 MG PO SCH (09:44)
[2019-07-26] MEDS: ATORVASTATIN CALCIUM 20 MG PO SCH (09:44)
[2019-07-26] MEDS: BUPROPION HCL 150 MG PO SCH ×2 (09:44→21:00)
[2019-07-26] MEDS: GABAPENTIN 600 MG PO SCH ×2 (09:44→20:59)
--- NOTE | 2019-07-26 12:02 | P.PN ---
Subjective Date of Service: 07/26/19 Chief Complaint: Shortness of breath and wheezing. The patient states she is doing better. She desaturated to the 80s on room air at rest 80s while talking. She was also quite dyspneic with ambulation. She has nonproductive cough. She states that she coughed all night. She has been afebrile. Physical Examination - Vital Signs Temperature: 97.4 F Blood Pressure: 174/81 Pulse: 81 Respirations: 18 Pulse Ox (%): 96 - Physical Exam General: Alert, In no apparent distress, Oriented x3 HEENT: Mucous membr. moist/pink Neck: JVD not distended Respiratory: Normal air movement (Improved breath sounds bilaterally), Expiratory wheezes (Mild scattered wheezes) Cardiovascular: No edema, Regular rate/rhythm Gastrointestinal: Normal bowel sounds, Soft and benign, Non-distended, No tenderness Musculoskeletal: No swelling, No erythema Integumentary: No rashes Neurological: Normal speech, Normal strength at 5/5 x4 extr Assessment And Plan - Current Problems (Diagnosis) (1) Acute respiratory failure with hypoxia Current Visit: Yes Status: Acute (2) COPD with acute exacerbation Current Visit: No Status: Acute (3) Elevated blood pressure reading Current Visit: Yes Status: Acute - Plan Clinically improved but not but based Continue to treat COPD exacerbation with scheduled nebs, IV Rocephin and oral Zithromax. Decrease IV steroid today. Leukocytosis noted and likely to be steroid induced Wean off oxygen. Blood cutures: No growth. Continue amlodipine for hypertension.
[2019-07-26] MEDS: NA CHLORIDE 0.9% 1,000 ML IV SCH (12:04)
--- NOTE | 2019-07-26 12:50 | EKG ---
Test Date: 2019-07-24 Test Time: 12:43:38 [employer] Specialist: JUDI MEASUREMENT RESULTS: Intervals: Rate: 79 MN: 138 QRSD: 112 QT: 388 QTc: 444 [place]: P: 88 MN: 138 QRS: 94 T: 91 INTERPRETIVE STATEMENTS: Normal sinus rhythm Right bundle branch block Abnormal ECG Compared to ECG 06/14/2019 21:55:32 No significant changes Electronically Signed On 07-26-19 12:45:46 AIR SURVEILLANCE OPERATOR by Behzad Amor
[2019-07-26 17:33] LABS: Urine Appearance CLEAR; Urine Bilirubin NEGATIVE (NEG); Urine Blood NEGATIVE (NEG); Urine Color YELLOW; Urine Glucose TRACE (NEG); Urine Protein NEGATIVE (NEG); Urine Urobilinogen 0.2 mg/dL (0.2-1.0)
[2019-07-26 17:42] LABS: Urine Microscopic Reflex NO UMIC
[2019-07-26] MEDS: ROPINIROLE HCL 0.25 MG PO SCH (20:59)
[2019-07-26] MEDS: HYDROXYZINE HCL 25 MG PO SCH (20:59)
[2019-07-27] MEDS: METHYLPREDNISOLONE 40 MG INJ IV SCH ×4 (00:24→17:13)
[2019-07-27] MEDS: IPRATROPIUM BROM 0.5MG/2.5ML NEB SCH ×4 (02:00→20:00)
[2019-07-27] MEDS: ALBUTEROL 2.5 MG/3 ML NEB SOL NEB SCH ×4 (02:00→20:00)
[2019-07-27 04:27] LABS: Basophils % 0.1 % (0-1.3); Hematocrit 35.5 % (36.0-45.0); Lymphocytes % 6.9 % (15.3-44.8); MPV 8.5 fL (7.6-11.3); RBC Red Blood Cell Count 3.91 M/uL (3.86-4.86)
[2019-07-27 04:34] LABS: Potassium 4.3 mmol/L (3.5-5.1)
[2019-07-27 05:26] VITALS: BMI 31.1
[2019-07-27] MEDS: NA CHLORIDE 0.9% 1,000 ML IV SCH (06:10)
[2019-07-27] MEDS: GUAIFENESIN/DM 5 ML UCUP PO PRN ×3 (06:11→22:02)
[2019-07-27] MEDS: BENZONATATE 100 MG CAP PO PRN ×2 (06:11→20:05)
[2019-07-27] MEDS: ENOXAPARIN 40 MG/0.4 ML SQ SCH (09:12)
[2019-07-27] MEDS: AMLODIPINE 5 MG TAB PO SCH (09:12)
[2019-07-27] MEDS: CEFTRIAXONE/SWI 1gm 1 GM/10 ML SYR IVP SCH (09:13)
[2019-07-27] MEDS: AZITHROMYCIN 250 MG TAB PO SCH (09:13)
[2019-07-27] MEDS: ATORVASTATIN CALCIUM 20 MG PO SCH (09:14)
[2019-07-27] MEDS: CANDESARTAN CILEXETIL 32 MG PO SCH (09:15)
[2019-07-27] MEDS: BUPROPION HCL 150 MG PO SCH ×2 (09:15→20:04)
[2019-07-27] MEDS: GABAPENTIN 600 MG PO SCH ×2 (09:16→20:04)
--- NOTE | 2019-07-27 12:11 | P.PN ---
Subjective Date of Service: 07/27/19 Chief Complaint: Asthma exacerbation Patient is 63 years of age that this is the 3rd admission with asthma exacerbation is patient has never smoked no obvious precipitating factors suddenly became very short of breath and appeared in the hospital feeling better denies any cough sputum hemoptysis or chest pain Review of Systems General: Weakness Respiratory: Cough, Shortness of Breath Physical Examination - Vital Signs Temperature: 97.3 F Blood Pressure: 149/84 Pulse: 86 Respirations: 16 Pulse Ox (%): 97 - Physical Exam General: Alert, In no apparent distress, Oriented x3 Respiratory: Expiratory wheezes Cardiovascular: No edema, Regular rate/rhythm, Normal S1 S2 Assessment & Plan - Problems (Diagnosis) (1) Asthma exacerbation Current Visit: No Status: Acute Plan: Patient is 63 years of age admitted with a recurrent asthma exacerbation she has never smoked no obvious precipitating factor on admission her use and a full percentage was elevated at 7.2 patient will benefit from the new modulate tree therapy as an outpatient added dial arrest this patient is feeling better labs reviewed white count is mildly elevated at p.o. Zithromax for is anti inflammatory component continue with the bronchodilator therapy she poly need to remain on low doses of prednisone until I can start her on immuno modulate retreatment saturation satisfactory room-air saturation is satisfactory Qualifiers: Asthma severity: moderate Discharge Plan: Home Plan to discharge in: 48 Hours
[2019-07-27] MEDS: ROFLUMILAST 500 MCG TABLET PO SCH (12:15)
--- NOTE | 2019-07-27 12:27 | RAD REPORT ---
EXAM DESCRIPTION: RAD - Chest Single View - 07/27/2019 12:21 pm CLINICAL HISTORY: Shortness of breath, hypoxemia COMPARISON: July 24 TECHNIQUE: AP portable chest image was obtained 1219 hours . FINDINGS: No focal lung parenchymal process. Interstitial pattern is not significantly different fro m comparison. No significant edema or interstitial infiltrative process seen. Mediastinal and hilar r egions show no suspicious findings. Heart and vasculature are normal. No measurable pleural effusion and no pneumothorax. No acute bony abnormality seen. No acute aortic findings suspected. IMPRESSION: No acute cardiopulmonary process. Chest is not significantly different from July 24.
--- NOTE | 2019-07-27 19:22 | PN ---
Date of Progress Note: 07/27/2019 Subjective: Patient was seen and examined. Chart reviewed and case discussed with RN and Dr. Nu vidal. Patient continues to be hypoxic with minimal exertion. Patient dropped down to 83% on room air with walking around in the room for couple minutes, improved to 94% with 3 L and maintained at 1.5 L via nasal cannula. Physical Examination: Vital Signs: Temperature 97.3, heart rate 86, blood pressure 149/84, respirations 16, O2 97% on room air. General: Awake, alert, oriented x3, not in any acute distress, slightly ill-appearing female, obese. BMI 31. CV: S1, S2. Regular rate and rhythm. Peripheral pulses present. Respiratory: D iminished breath sounds. Rhonchi heard. Minimal wheezing. No use of accessory muscles. Gastrointe stinal: Abdomen is soft, nontender, nondistended. Positive bowel sounds. No guarding or rigidity. Extremities: No clubbing, cyanosis, or edema. Neurologic: Cranial nerves 2 through 12 intact sugar sly. No focal neurological deficit. Speech is normal. Laboratory Data: Sodium 143, potassium 4.3, chloride 111, CO2 28, BUN 21, creatinine 0.72, glucose 1 55, calcium 8.2. WBC 14.6, H and H 12.3 and 35.5, platelets 361, neutrophils 90%. Blood cultures, n o growth to-date. Influenza screen is negative. Sputum culture, no growth to-date. Assessment And Plan: 63-year-old female with: 1.Acute respiratory failure with hypoxia. Patient continues to have dyspnea upon exertion, O2 satur ations dropping 83% with minimal activity. Repeat chest x-ray does not show significant change. 2.Acute chronic obstructive pulmonary disease with exacerbation. Continue with IV steroids, nebuliz er treatments. Consult pulmonology. Patient is a former smoker. Continues to have significant amou nt of cough, but no significant sputum production. 3.Essential hypertension. We will continue with home medications. 4.Fibromyalgia, stable. 5.Hyperlipidemia. We will continue home medication with statin. 6.Gastrointestinal and deep vein thrombosis prophylaxis addressed. Discharge once more stable, off O2. SA/MODL Voice ID: [id number] Report ID: [id number]
[2019-07-27] MEDS ORDERED: hydrOXYzine HCl 25 MG TAB ONE (19:53)
[2019-07-27] MEDS: ROPINIROLE HCL 0.25 MG PO SCH (20:03)
[2019-07-27] MEDS: MAGNESIUM OXIDE 500 MG PO SCH (20:03)
[2019-07-27] MEDS: HYDROXYZINE HCL 25 MG PO SCH (20:04)
[2019-07-28] MEDS: METHYLPREDNISOLONE 40 MG INJ IV SCH ×2 (00:18→05:19)
[2019-07-28] MEDS: BENZONATATE 100 MG CAP PO PRN ×2 (00:18→05:19)
[2019-07-28] MEDS: IPRATROPIUM BROM 0.5MG/2.5ML NEB SCH ×3 (02:00→14:25)
[2019-07-28] MEDS: ALBUTEROL 2.5 MG/3 ML NEB SOL NEB SCH ×3 (02:00→14:25)
[2019-07-28] MEDS: GUAIFENESIN/DM 5 ML UCUP PO PRN ×2 (03:17→08:28)
--- NOTE | 2019-07-28 08:04 | P.PN ---
Subjective Date of Service: 07/28/19 Chief Complaint: Asthma exacerbation Improving slowly she is coughing all night long still has some shortness of breath on exertion Review of Systems General: Weakness Respiratory: Cough, Shortness of Breath Physical Examination - Vital Signs Temperature: 97.6 F Blood Pressure: 165/83 Pulse: 78 Respirations: 16 Pulse Ox (%): 95 - Physical Exam General: Alert, In no apparent distress, Oriented x3 Respiratory: Expiratory wheezes Cardiovascular: No edema, Normal S1 S2 Assessment & Plan - Problems (Diagnosis) (1) Asthma exacerbation Current Visit: No Status: Acute Plan: Patient him cecily admitted again with an episode of severe asthma exacerbation possible discharge home continue with prednisone 10 mg twice a day and Dalresp 500 mg daily for now she will qualify for inguinal modulate tree therapy as an outpatient. I will schedule her to have an injection next week continue with Zithromax 250 mg daily what it is anti inflammatory effect Qualifiers: Asthma severity: moderate Discharge Plan: Home Plan to discharge in: 24 Hours
[2019-07-28] MEDS: ROFLUMILAST 500 MCG TABLET PO SCH (08:27)
[2019-07-28] MEDS: GABAPENTIN 600 MG PO SCH (08:27)
[2019-07-28] MEDS: AMLODIPINE 5 MG TAB PO SCH (08:27)
[2019-07-28] MEDS: ENOXAPARIN 40 MG/0.4 ML SQ SCH (08:28)
[2019-07-28] MEDS: BUPROPION HCL 150 MG PO SCH (08:29)
[2019-07-28] MEDS: CANDESARTAN CILEXETIL 32 MG PO SCH (08:30)
[2019-07-28] MEDS: ATORVASTATIN CALCIUM 20 MG PO SCH (08:30)
[2019-07-28] MEDS ORDERED: predniSONE 20 MG TAB PO SCH (09:00)
[2019-07-28] MEDS ORDERED: AZITHROMYCIN 250 MG TAB PO SCH (09:00)
[2019-07-28 11:12] VITALS: O2SAT 93
[2019-07-28 16:37] VITALS: BP 144/69; TEMP 97.5
--- NOTE | 2019-07-29 04:05 | DS ---
Date of Discharge: 07/28/2019 Napping Machine Operator: Dr. Patton with Pulmonology. Admitting Diagnoses: 1.Acute respiratory failure with hypoxia. 2.Acute chronic obstructive pulmonary disease exacerbation. 3.Fibromyalgia. 4.Essential hypertension. 5.Mixed hyperlipidemia. 6.Restless legs syndrome. Discharge Diagnoses: 1.Acute respiratory failure with hypoxia. 2.Acute chronic obstructive pulmonary disease exacerbation. 3.Essential hypertension. 4.Fibromyalgia. 5.Mixed hyperlipidemia. 6.Restless legs syndrome. 7.Obesity, BMI 31. Hospital Course: The patient is a 63-year-old female with past medical history of COPD, asthma, hype rtension, hyperlipidemia, who comes in with shortness of breath and wheezing. Patient has significan t amount of cough, but no significant sputum production. Imaging study showed no acute infiltrates, she was started on nebulizer treatments steroids. She continued to be hypoxic, was difficult to wean off, continue to drop to low 80s with exertion. Pulmonology was consulted. Repeat chest x-ray did not show significant change. Patient will likely need immune therapy. She was also added on Dalires p and azithromycin. Patient did develop some steroid-induced leukocytosis. However, overall the pat ient did well. Her shortness of breath did improve. Influenza screen was negative. Blood cultures and sputum cultures were also negative to date. She was then cleared from Pulmonology standpoint. S he did qualify for home O2 and that was set up. She will be discharged home once O2 is set up. Medications: As per medication reconciliation list. Followup: The patient to follow up with primary care physician in 2-3 days. Follow up with pulmonol ogist next week. Return to ER for worsening condition. Diet: Heart healthy. Activity: As tolerated. No strenuous activity while recovering. Physical Examination: General: Awake, alert, and oriented x3, obese female. CV: S1, S2. Respiratory: Somewhat diminished breath sounds, minimal wheezing. Gastrointestinal: Abdomen is soft, nontender, nondistended. Positive bowel sounds. Extremities: No clubbing, cyanosis, or edema. Neurologic: Nonfocal. Total time spent discharging the patient was 37 minutes. /KENYON Voice ID: [id number] Report ID: [id number]
== END 2019-07-28 17:23 | disposition home or self-care (01) | DRG 190 ==
LOC: ER 11:47 → ERHOLD 12:38 → 4TH 15:47
PROVIDERS: ADMIT Internal Medicine; ATTEND Internal Medicine
DX: J44.1 Chronic obstructive pulmonary disease with (acute) exacerbation (principal); J96.01 Acute respiratory failure with hypoxia; I10 Essential (primary) hypertension; M79.7 Fibromyalgia; E78.2 Mixed hyperlipidemia; G25.81 Restless legs syndrome; E66.9 Obesity, unspecified; Z68.31 Body mass index [BMI] 31.0-31.9, adult
CPT/HCPCS: 36415; 71045; 80048; 80076; 81003; 83605; 83735; 83880; 84100; 84484; 85025; 85610; 87040; 87070; 87205; 87804; 93005; 94640; 94760; 96365; 96366; 96375; 99285; J0456; J0696; J1100; J1650; J2920; J2930; J7030; J7512

== ENCOUNTER 2021-06-30 13:57 | Inpatient (IN) | payer OTHER ==
--- NOTE | 2021-06-30 15:41 | RAD REPORT ---
EXAM DESCRIPTION: RAD - Chest Single View - 06/30/2021 3:34 pm CLINICAL HISTORY: SOB COMPARISON: Chest Single View dated 07/27/2019; Chest Single View dated 07/24/2019; Chest Single View dated 06/14/2019; Chest Single View dated 05/16/2019 FINDINGS: Lines: None. Lungs: No evidence of edema or pneumonia. Pleural: No significant pleural effusions or pneumothorax. Cardiac: The heart size is within normal limits. Bones: No acute fractures. Other: IMPRESSION: No acute cardiopulmonary disease.
[2021-06-30] MEDS ORDERED: ALBUTEROL 2.5 MG/3 ML NEB SOL ONE (16:03)
[2021-06-30] MEDS ORDERED: IPRATROPIUM BROM 0.5MG/2.5ML ONE (16:03)
[2021-06-30] MEDS ORDERED: METHYLPREDNISOLONE 125 MG INJ ONE (16:03)
[2021-06-30 16:11] LABS: Protime INR 1.05
[2021-06-30 16:15] LABS: Absolute Lymphocytes (CBC) 1.8 K/uL (0.7-4.9); Basophils % 1.1 % (0-1.3); Hematocrit 43.7 % (36.0-45.0); Lymphocytes % 19.9 % (15.3-44.8); MPV 9.3 fL (7.6-11.3); RBC Red Blood Cell Count 4.95 M/uL (3.86-4.86)
[2021-06-30 16:30] LABS: ALT/SGPT 24 U/L (12-78); AST/SGOT 14 U/L (15-37); Albumin 4.1 g/dL (3.4-5.0); Alkaline Phosphatase 102 U/L (45-117); BUN Blood Urea Nitrogen 8 mg/dL (7-18); Bicarbonate 28 mmol/L (21-32); Bilirubin Direct 0.1 mg/dL (0-0.2); Bilirubin Total 0.4 mg/dL (0.2-1.0); Glucose Level 105 mg/dL (74-106); Magnesium 2.4 mg/dL (1.8-2.4); NT PRO-BNP 71 pg/mL (<125); Potassium 4.3 mmol/L (3.5-5.1); Protein, Total 7.3 g/dL (6.4-8.2); Sodium Level 142 mmol/L (136-145); Troponin (Emerg Dept Use Only) < 0.02 ng/mL (0.0-0.045)
--- NOTE | 2021-06-30 18:08 | ER ---
Nurse's Notes [facility] Name: Ivonne Pritchett Age: 65 yrs Sex: Female : 1955 Arrival Date: 06/30/2021 Time: 14:02 Bed 5 Private MD: Diagnosis: Unspecified asthma with (acute) exacerbation Presentation: 06/30 14:02 Chief complaint: Patient states: shortness of breath on and off x 2 weeks ago. Pt also aa5 reports cough. Labored breathing during triage noted. 14:02 Coronavirus screen: cough unrelated to allergies, shortness of breath. Ebola Screen: aa5 Patient negative for fever greater than or equal to 101.5 degrees Fahrenheit, and additional compatible Ebola Virus Disease symptoms. Initial Sepsis Screen: Does the patient meet any 2 criteria? RR > 20 per min. HR > 90 bpm. Yes Does the patient have a suspected source of infection? No. Patient's initial sepsis screen is negative. Risk Assessment: Do you want to hurt yourself or someone else? Patient reports no desire to harm self or others. Onset of symptoms was June 2021. 14:02 Acuity: MARY 2 aa5 14:02 Method Of Arrival: Wheelchair aa5 Triage Assessment: 14:15 General: Appears distressed, uncomfortable, Behavior is cooperative, appropriate for bp age, anxious. Pain: Denies pain. EENT: No deficits noted. Neuro: No deficits noted. Cardiovascular: Rhythm is sinus tachycardia. Respiratory: Reports shortness of breath. GI: No signs and/or symptoms were reported involving the gastrointestinal system. : No signs and/or symptoms were reported regarding the genitourinary system. Derm: No deficits noted. Musculoskeletal: No deficits noted. Historical: - Allergies: 14:05 NKA; aa5 - PMHx: 14:05 Fibromyalgia; Hypertension; restless leg syndrome; aa5 14:05 Asthma; high cholesterol; aa5 - Immunization history:: Client reports receiving the 2nd dose of the Covid vaccine. - Social history:: Smoking status: Patient denies any tobacco usage or history of. Screenin:34 Abuse screen: Denies threats or abuse. Denies injuries from another. Nutritional bp screening: No deficits noted. Tuberculosis screening: No symptoms or risk factors identified. Fall Risk None identified. Assessment: 14:34 General: SEE TRIAGE NOTE. bp 16:30 Reassessment: Patient appears in no apparent distress at this time. No changes from bp previously documented assessment. Patient and/or family updated on plan of care and expected duration. Pain level reassessed. 17:54 Reassessment: SP02 85% ON ROOM AIR WHILE AMBULATING, HR 102. bp 19:38 Reassessment: Patient appears in no apparent distress at this time. Patient is alert, wg oriented x 3, equal unlabored respirations, skin warm/dry/pink. Reassessment: Pt sitting upright satting in the low 90's on room air. Pt has COPD and is diminished in all lobes with mild wheezing. Pt has slight non-productive cough and states she is feeling pretty good. Cardiovascular: No deficits noted. Respiratory: Reports shortness of breath on exertion Airway is patent Trachea midline Breath sounds are diminished bilaterally. the patient has mild shortness of breath. 20:11 Reassessment: Pt called staff for SOB. Sat was 86% on RA. Pt placed on 3l NC and Sat's wg in the low 90's. Vital Signs: 14:02 BP 163 / 117; Pulse 103; Resp 28 S; Temp 97.3(TE); Pulse Ox 93% on R/A; Weight 81.65 kg aa5 (R); Height 5 ft. 4 in. (162.56 cm) (R); 15:30 BP 118 / 99; Pulse 85; Resp 16; Pulse Ox 97% ; bp 16:29 BP 135 / 67; Pulse 81; Resp 16; Pulse Ox 100% ; bp 17:54 Pulse 102; Pulse Ox 85% on R/A; bp 19:37 BP 128 / 87; Pulse 84; Resp 22; Pulse Ox 92% on R/A; Pain 0/10; wg 20:05 BP 142 / 100; Pulse 92; Resp 24; Pulse Ox 86% on R/A; Pain 0/10; wg 20:09 Pulse Ox 92% on 3 lpm NC; wg 14:02 Body Mass Index 30.90 (81.65 kg, 162.56 cm) aa5 17:54 WHILE AMBULATING bp ED Course: 14:02 Patient arrived in ED. jl7 14:05 Arm band placed on Patient placed in an exam room, on a stretcher. aa5 14:09 Triage completed. aa5 14:33 Tres Parada, RN is Primary Nurse. bp 14:34 Patient has correct armband on for positive identification. Bed in low position. Call bp light in reach. Side rails up X2. 15:08 Librado Clifford PA is PHCP. cp 15:08 Atul Penny MD is Attending Physician. cp 15:34 XRAY Chest (1 view) In Process Unspecified. EDMS 15:55 Inserted saline lock: 20 gauge in right antecubital area, using aseptic technique. bp Blood collected. 18:06 Cam Wilson DO is Hospitalizing Provider. cp 19:29 Basic Metabolic Panel Sent. wg 19:36 COVID-19 (Coronavirus) Document "Date of Onset" if Symptomatic Sent. wg 20:55 No provider procedures requiring assistance completed. Patient admitted, IV remains in bb place. Administered Medications: 15:55 Drug: SOLU-Medrol (methylPrednisoLONE) 125 mg Route: IVP; Site: right antecubital; bp 15:55 Drug: Albuterol - atroVENT (ipratropium) (3:1) (2.5 mg - 0.5 mg) 3 ml Route: Nebulizer; bp 18:10 Drug: Xopenex (levalbuterol) (3) 1.25 mg Route: Inhalation; bp 19:36 Drug: Magnesium Sulfate 2 grams Route: IVPB; Infused Over: 1 hrs; Site: right wg antecubital; 20:30 Follow up: IV Status: Completed infusion; IV Intake: 100ml bb Intake: 20:30 IV: 100ml; Total: 100ml. bb Outcome: 18:07 Decision to Hospitalize by Provider. cp 20:54 Admitted to Tele accompanied by tech, via wheelchair, room 206, with oxygen, with bb chart, Report called to Marina HEAD 20:54 Condition: stable 20:54 Instructed on the need for admit. 21:14 Patient left the ED. la1 Signatures: Dispatcher [employer] EDMS Katelin Gerard RN RN bb Calderon, Audri RN RN aa5 Alexys Regalado, DRUPAL ARCHITECT-C DRUPAL ARCHITECT-Cla1 Librado Clifford PA PA cp Leal, Jahala, RN RN jl7 Tres Parada RN Judson West RN wg Corrections: (The following items were deleted from the chart) 14:11 14:02 Initial Sepsis Screen: Does the patient meet any 2 criteria? RR > 20 per min. aa5 Does the patient have a suspected source of infection? No. Patient's initial sepsis screen is negative. aa5
--- NOTE | 2021-06-30 18:08 | EDPHYS ---
Physician Documentation [facility] Name: Ivonne Pritchett Age: 65 yrs Sex: Female : 1955 Arrival Date: 06/30/2021 Time: 14:02 Bed 5 Private MD: ED Physician Atul Penny HPI: 06/30 15:15 This 65 yrs old Female presents to ER via Wheelchair with complaints of cp Shortness of Breath. 15:15 The patient or guardian reports cough, with productive sputum, that is white, cp difficulty breathing. 15:15 Onset: The symptoms/episode began/occurred for weeks. cp 15:15 Associated signs and symptoms: Pertinent negatives: chest pain, diarrhea, fever, sore cp throat, vomiting. Severity of symptoms: in the emergency department the symptoms are unchanged despite home interventions. Patient reports recently finishing prescribed Zithromax. Historical: - Allergies: 14:05 NKA; aa5 - PMHx: 14:05 Fibromyalgia; Hypertension; restless leg syndrome; aa5 14:05 Asthma; high cholesterol; aa5 - Immunization history:: Client reports receiving the 2nd dose of the Covid vaccine. - Social history:: Smoking status: Patient denies any tobacco usage or history of. ROS: 15:20 Constitutional: Negative for body aches, chills, fever, poor PO intake. cp 15:20 Eyes: Negative for injury, pain, redness, and discharge. cp 15:20 ENT: Negative for drainage from ear(s), ear pain, sore throat, difficulty swallowing, difficulty handling secretions. 15:20 Cardiovascular: Negative for chest pain, edema, palpitations. 15:20 Respiratory: Positive for cough, with white sputum, shortness of breath, wheezing. 15:20 Abdomen/GI: Negative for abdominal pain, nausea, vomiting, and diarrhea. 15:20 Back: Negative for radiated pain. 15:20 Neuro: Negative for altered mental status, dizziness, headache, syncope, weakness. 15:20 All other systems are negative. Exam: 15:25 Constitutional: The patient appears in no acute distress, alert, awake, cp non-diaphoretic, non-toxic, well developed, well nourished. 15:25 Head/Face: Normocephalic, atraumatic. cp 15:25 Eyes: Periorbital structures: appear normal, Conjunctiva: normal, no exudate, no injection, Sclera: no appreciated abnormality, Lids and lashes: appear normal, bilaterally. 15:25 ENT: External ear(s): are unremarkable, Ear canal(s): are normal, clear, TM's: dullness, bilaterally, Nose: is normal, Mouth: Lips: moist, Oral mucosa: pink and intact, moist, Posterior pharynx: Airway: no evidence of obstruction, patent, Tonsils: are normal in appearance, erythema, is not appreciated, exudate, is not appreciated. 15:25 Neck: ROM/movement: is normal, is supple, without pain, no range of motions limitations, no meningismus, Lymph nodes: no appreciated lymphadenopathy. 15:25 Chest/axilla: Inspection: normal, Palpation: is normal, no crepitus, no tenderness. 15:25 Cardiovascular: Rate: tachycardic, Rhythm: regular, Edema: is not appreciated, JVD: is not appreciated. 15:25 Respiratory: mild respiratory distress is noted, Respirations: labored breathing, that is moderate, Breath sounds: decreased breath sounds, that are moderate, throughout, stridor, is not appreciated, wheezing: that is mild, is heard diffusely. 15:25 Abdomen/GI: Inspection: abdomen appears normal, Palpation: abdomen is soft and non-tender, in all quadrants. 15:25 Back: pain, is absent, ROM is normal. 15:25 Skin: no rash present. 15:25 Neuro: Orientation: to person, place \\T\\ time. Mentation: is normal, Motor: moves all fours, strength is normal, Sensation: is normal. 16:10 ECG was reviewed by the Attending Physician. cp Vital Signs: 14:02 BP 163 / 117; Pulse 103; Resp 28 S; Temp 97.3(TE); Pulse Ox 93% on R/A; Weight 81.65 kg aa5 (R); Height 5 ft. 4 in. (162.56 cm) (R); 15:30 BP 118 / 99; Pulse 85; Resp 16; Pulse Ox 97% ; bp 16:29 BP 135 / 67; Pulse 81; Resp 16; Pulse Ox 100% ; bp 17:54 Pulse 102; Pulse Ox 85% on R/A; bp 19:37 BP 128 / 87; Pulse 84; Resp 22; Pulse Ox 92% on R/A; Pain 0/10; wg 20:05 BP 142 / 100; Pulse 92; Resp 24; Pulse Ox 86% on R/A; Pain 0/10; wg 20:09 Pulse Ox 92% on 3 lpm NC; wg 14:02 Body Mass Index 30.90 (81.65 kg, 162.56 cm) aa5 17:54 WHILE AMBULATING bp MDM: 15:09 Patient medically screened. cp 15:30 Differential diagnosis: bronchitis, flu, URI, asthma exacerbation, chf. cp 18:15 Data reviewed: vital signs, nurses notes, lab test result(s), EKG, radiologic studies, cp plain films. 18:15 Test interpretation: by ED physician or midlevel provider: ECG, plain radiologic cp studies. Physician consultation: Alexys Regalado was contacted at 18:05, regarding admission, to the telemetry unit. patient's condition, and will see patient in ED, shortly. 06/30 15:10 Order name: Basic Metabolic Panel cp 06/30 15:10 Order name: CBC with Diff; Complete Time: 17:05 cp 06/30 17:05 Interpretation: Normal except: RBC 4.95; EOSINOPHIL % 16.3; EOSA 1.5. cp 06/30 15:10 Order name: LFT's; Complete Time: 17:05 cp 06/30 15:10 Order name: Magnesium; Complete Time: 17:05 cp 06/30 15:10 Order name: NT PRO-BNP; Complete Time: 17:05 cp 06/30 15:10 Order name: PT-INR; Complete Time: 17:05 cp 06/30 15:10 Order name: Troponin (emerg Dept Use Only); Complete Time: 17:05 cp 06/30 17:06 Interpretation: TROPED < 0.02; Reviewed. cp 06/30 15:10 Order name: Basic Metabolic Panel; Complete Time: 17:05 EDMS 06/30 17:05 Interpretation: Normal except: CL 108; GFR 55. cp 06/30 15:18 Order name: COVID-19 (Coronavirus) Document "Date of Onset" if Symptomatic cp 06/30 15:18 Order name: Influenza Screen (a \\T\\ B); Complete Time: 18:13 cp 06/30 15:18 Order name: Blood Culture Adult (2) cp 06/30 15:18 Order name: Lactate; Complete Time: 17:05 cp 06/30 15:18 Order name: Procalcitonin; Complete Time: 17:05 06/30 15:10 Order name: XRAY Chest (1 view); Complete Time: 16:21 cp 06/30 16:21 Interpretation: Report reviewed. 06/30 15:10 Order name: EKG; Complete Time: 15:11 cp 06/30 15:10 Order name: Cardiac monitoring; Complete Time: 16:24 06/30 15:10 Order name: EKG - Nurse/Tech; Complete Time: 16:07 06/30 15:10 Order name: IV Saline Lock; Complete Time: 16:24 06/30 15:10 Order name: Labs collected and sent; Complete Time: 16:24 06/30 15:10 Order name: O2 Per Protocol; Complete Time: 15:25 cp 06/30 15:10 Order name: O2 Sat Monitoring; Complete Time: 15:24 06/30 16:36 Order name: SARS-COV-2 RT PCR; Complete Time: 18:13 EDMS 06/30 18:14 Order name: ABG Arterial Blood Gas; Complete Time: 18:55 EDMS EC:10 Rate is 78 beats/min. Rhythm is regular. MT interval is normal. QRS interval is cp prolonged at 102 msec. QT interval is normal. Interpreted by me. Reviewed by me. Administered Medications: 15:55 Drug: SOLU-Medrol (methylPrednisoLONE) 125 mg Route: IVP; Site: right antecubital; bp 15:55 Drug: Albuterol - atroVENT (ipratropium) (3:1) (2.5 mg - 0.5 mg) 3 ml Route: Nebulizer; bp 18:10 Drug: Xopenex (levalbuterol) (3) 1.25 mg Route: Inhalation; bp 19:36 Drug: Magnesium Sulfate 2 grams Route: IVPB; Infused Over: 1 hrs; Site: right wg antecubital; 20:30 Follow up: IV Status: Completed infusion; IV Intake: 100ml bb Disposition: 07/01 12:51 Co-signature as Attending Physician, Atul Penny MD I agree with the assessment and kdr plan of care. Disposition Summary: 06/30/21 18:07 Hospitalization Ordered Hospitalization Status: Inpatient Admission cp Provider: Cam Wilson cp Location: Telemetry/MedSurg (Inpatient) cp Condition: Stable cp Problem: an acute exacerbation cp Symptoms: have improved cp Bed/Room Type: Standard cp Room Assignment: 206(06/30/21 20:03) cg Diagnosis - Unspecified asthma with (acute) exacerbation cp Forms: - Medication Reconciliation Form cp - SBAR form cp Signatures: Dispatcher [employer] EDMS Atul Penny MD MD [facility] Lynn Moses, RN RN aa5 Alexys Regalado, FRUIT BUYING GRADER-C FRUIT BUYING GRADER-Cla1 Librado Clifford PA PA cp Flor Mata RN RN cg Tres Parada RN RN bp Judson Velásquez, SONIDO Katelin Gerard RN bb Corrections: (The following items were deleted from the chart) 06/30 16:36 15:19 CORONAVIRUS ordered. EDMS EDMS 20:03 18:07 cp cg
[2021-06-30 18:17] LABS: Blood Gas Oxyhemoglobin 82.8 % (94-97); Blood O2 Saturation 84.3 % (92-98.5)
[2021-06-30] MEDS ORDERED: LEVALBUTEROL 1.25 MG/3 ML NEB ONE (18:18)
--- NOTE | 2021-06-30 19:13 | P.HP ---
Certification for Inpatient Patient admitted to: Inpatient With expected LOS: >2 Midnights Patient will require the following post-hospital care: None Practitioner: I am a practitioner with admitting privileges, knowledge of patient current condition, hospital course, and medical plan of care. Services: Services provided to patient in accordance with Admission requirements found in Title 42 Section 412.3 of the Code of Federal Regulations Patient History Date of Service: 06/30/21 Primary Care Provider: Dr. Leyva Reason for admission: Asthma exacerbation History of Present Illness: 65-year-old female with history of fibromyalgia, asthma, hypertension, restless leg syndrome, hyperlipidemia presented to the emergency room and for shortness of breath. Patient reports increasing shortness of breath over the course of the last 4 to 6 weeks, patient has been on oral steroids and Zithromax from primary care provider but still not feeling well. Patient was evaluated in the emergency department labs are significant for ABG PO2 51.4 otherwise unremarkable chest x-ray unremarkable EKG without acute changes. Patient was given multiple rounds of nebulizer treatments and IV steroids in the emergency department but still with wheezing/respiratory distress, ED provider wishes to admit for asthma exacerbation. Allergies No Known Allergies Allergy (Verified 09/17/13 22:55) Home Medications: Atorvastatin Calcium [Lipitor] 20 mg PO DAILY 06/15/19 Gabapentin 600 mg PO BID 06/15/19 Magnesium Oxide [Magnesium] 500 mg PO BEDTIME 06/15/19 Budesonide/Formoterol Fumarate [Symbicort 160-4.5 Mcg Inhaler] 2 puff IH BID 07/24/19 Candesartan Cilexetil 32 mg PO DAILY 07/24/19 Hydroxyzine HCl [Atarax] 25 mg PO BEDTIME 07/24/19 Ropinirole HCl [Requip] 0.5 mg PO DAILY 07/24/19 buPROPion HCL [Bupropion HCl Sr] 150 mg PO BID 07/24/19 Albuterol Sulfate [Proair Hfa] 8.5 gm IH Q6HR PRN #1 hfa.aer.ad 07/28/19 Azithromycin [Zithromax] 250 mg PO DAILY #30 tablet 07/28/19 Benzonatate [Tessalon Perle*] 200 mg PO Q4H PRN #20 cap 07/28/19 Epinephrine [Epipen] 0.3 mg IJ ONCE #1 auto.injct 07/28/19 Guaif/Dm [Robitussin Dm*] 5 ml PO Q6H PRN ucup 07/28/19 Roflumilast [Daliresp] 500 mcg PO DAILY #30 tablet 07/28/19 predniSONE [Deltasone] 10 mg PO BID #20 tab 07/28/19 - Past Medical/Surgical History Diabetic: No -: diverticulitis -: fibromyalgia -: htn, -: high cholesterol -: RLS -: Asthma -: zackary -: tubal ligation -: "pelvic prolapse surgery" Psychosocial/ Personal History: Lives at home with family, retired - Family History Father -: Hypertension, Cancer Mother -: Hypertension, Diabetes, Stroke Brother -: Hypertension, Stroke - Social History Smoking Status: Former smoker Alcohol use: Yes CD- Drugs: No Caffeine use: Yes Place of Residence: Home Review of Systems 10-point ROS is otherwise unremarkable Respiratory: Cough, Shortness of Breath, Wheezing Physical Examination - Physical Exam General: Alert, In no apparent distress, Oriented x3 HEENT: Atraumatic, PERRLA, Mucous membr. moist/pink, EOMI, Sclerae nonicteric Neck: Supple, 2+ carotid pulse no bruit, No LAD, Without JVD or thyroid abnormality Respiratory: Diminished, Expiratory wheezes Cardiovascular: Regular rate/rhythm, Normal S1 S2 Gastrointestinal: Normal bowel sounds, No tenderness Musculoskeletal: No tenderness Integumentary: No rashes Neurological: Normal gait, Normal speech, Normal strength at 5/5 x4 extr, Normal tone, Normal affect Lymphatics: No axilla or inguinal lymphadenopathy - Studies Laboratory Data (last 24 hrs) 06/30/21 15:55: PT 12.1, INR 1.05 06/30/21 15:55: WBC 9.30, Hgb 14.7, Hct 43.7, Plt Count 333 06/30/21 15:55: Sodium 142, Potassium 4.3, BUN 8, Creatinine 1.01, Glucose 105, Magnesium 2.4, Total Bilirubin 0.4, AST 14 L, ALT 24, Alkaline Phosphatase 102 Microbiology Data (last 24 hrs): 06/30/21 15:55 Nasopharnyx Influenza Type A Antigen Screen - Final 06/30/21 15:55 Nasopharnyx Influenza Type B Antigen Screen - Final Assessment and Plan - Plan Assessment: Acute hypoxic respiratory failure secondary to asthma exacerbation Hypertension Hyperlipidemia Fibromyalgia/RLS Plan: Acute hypoxic respiratory failure secondary to asthma exacerbation: Scheduled nebs, IV steroids, incentive spirometer, ICS. Pulmonology consult in place, supplemental oxygen as needed, wean off oxygen as tolerated. Appreciate further input from pulmonology. Hypertension: Obtain and continue medications Hyperlipidemia: Obtain and continue medications Fibromyalgia/RLS: Obtain and continue medications DVT PPX: Lovenox Code status: Full Discharge Plan: Home Plan to discharge in: 48 Hours - Advance Directives Does patient have a Living Will: No Does patient have a Durable POA for Healthcare: No - Code Status/Comfort Care Code Status Assessed: Yes (Full code) Critical Care: No Time Spent Managing Pts Care (In Minutes): 55
[2021-06-30] MEDS ORDERED: Magnesium Sulfate 2gm IVPB 2 G/50 ML BAG IV ONE (19:55)
[2021-06-30 22:04] VITALS: BMI 30.9
[2021-06-30] MEDS ORDERED: ONDANSETRON 4 MG/2 ML VIAL IV PRN (22:10)
[2021-06-30] MEDS: IPRATROPIUM BROM 0.5MG/2.5ML NEB SCH (23:00)
[2021-06-30] MEDS: ALBUTEROL 2.5 MG/3 ML NEB SOL NEB SCH (23:00)
[2021-06-30] MEDS: DULERA 200/5 (MOMETASONE/FORMOTEROL) INHALER IH SCH (23:24)
[2021-07-01] MEDS: METHYLPREDNISOLONE 40 MG INJ IV SCH ×3 (00:40→16:18)
[2021-07-01 00:51] LABS: Urine Appearance CLEAR (Clear); Urine Bilirubin NEGATIVE (Negative); Urine Blood NEGATIVE (Negative); Urine Color YELLOW (Yellow); Urine Glucose NEGATIVE (Negative); Urine Microscopic Reflex NO UMIC; Urine Protein NEGATIVE (Negative); Urine Specific Gravity <=1.005 (1.005-1.030); Urine Urobilinogen 0.2 mg/dL (0.2-1.0)
[2021-07-01] MEDS: GABAPENTIN 300 MG CAP PO SCH ×3 (01:16→21:49)
[2021-07-01] MEDS: IPRATROPIUM BROM 0.5MG/2.5ML NEB SCH (03:20)
[2021-07-01] MEDS: ALBUTEROL 2.5 MG/3 ML NEB SOL NEB SCH (03:20)
[2021-07-01 05:59] LABS: Absolute Lymphocytes (CBC) 0.8 K/uL (0.7-4.9); Basophils % 0.2 % (0-1.3); Hematocrit 38.7 % (36.0-45.0); Lymphocytes % 9.2 % (15.3-44.8); MPV 8.8 fL (7.6-11.3); RBC Red Blood Cell Count 4.41 M/uL (3.86-4.86)
--- NOTE | 2021-07-01 06:03 | P.PN ---
Subjective Date of Service: 07/01/21 Primary Care Provider: Dr. Leyva Chief Complaint: Asthma exacerbation Subjective: Improving (Currently on 2 L per nasal cannula.) Physical Examination - Vital Signs Temperature: 98.1 F Blood Pressure: 138/63 Pulse: 93 Respirations: 19 Pulse Ox (%): 91 - Studies Laboratory Data (last 24 hrs) 06/30/21 15:55: PT 12.1, INR 1.05 06/30/21 15:55: WBC 9.30, Hgb 14.7, Hct 43.7, Plt Count 333 06/30/21 15:55: Sodium 142, Potassium 4.3, BUN 8, Creatinine 1.01, Glucose 105, Magnesium 2.4, Total Bilirubin 0.4, AST 14 L, ALT 24, Alkaline Phosphatase 102 Microbiology Data (last 24 hrs): 06/30/21 15:55 Nasopharnyx Influenza Type A Antigen Screen - Final 06/30/21 15:55 Nasopharnyx Influenza Type B Antigen Screen - Final Assessment & Plan Discharge Plan: Home Plan to discharge in: 24 Hours Physician Review Additional Text: COVID: negative CXR: COMPARISON: Chest Single View dated 07/27/2019; Chest Single View dated 07/24/2019; Chest Single View dated 06/14/2019; Chest Single View dated 05/16/2019 FINDINGS: Lines: None. Lungs: No evidence of edema or pneumonia. Pleural: No significant pleural effusions or pneumothorax. Cardiac: The heart size is within normal limits. Bones: No acute fractures. IMPRESSION: No acute cardiopulmonary disease. Physical exam: General: Alert, In no apparent distress, Oriented x3 HEENT: Neck supple Respiratory: Diminished, Expiratory wheezes. Currently on 2 L per nasal cannula Cardiovascular: Regular rate/rhythm, Normal S1 S2 Gastrointestinal: Normal bowel sounds, No tenderness Musculoskeletal: No tenderness Integumentary: No rashes Neurological: Normal gait, Normal speech, Normal strength at 5/5 x4 extr, Normal tone, Normal affect Lymphatics: No axilla or inguinal lymphadenopathy Impression: Acute hypoxic respiratory failure secondary to asthma exacerbation Hypertension Hyperlipidemia Fibromyalgia/RLS Depression with anxiety Plan: Acute hypoxic respiratory failure secondary to asthma exacerbation: Patient improved. Currently on 2 L per nasal cannula. Continue IV steroid. Patient on Dulera, albuterol. Patient only takes albuterol as needed at home. Patient will likely require Advair at discharge. Continue to wean off oxygen. Await recommendations by pulmonology. Anticipate likely home in the next 24 hours. Hypertension: Restart candesartan 32 mg daily. Hyperlipidemia: Restart Lipitor 20 mg daily Fibromyalgia/RLS: Continue with gabapentin 600 mg 1 pill twice daily. Restart Requip 0.5 mg daily Depression with anxiety: Continue with bupropion XL 150 mg 1 pill twice daily DVT PPX: Lovenox Code status: Full Discharge Plan: Home at discharge Time Spent Managing Pts Care (In Minutes): 55
[2021-07-01 06:15] LABS: Albumin 3.6 g/dL (3.4-5.0); Bilirubin Total 0.3 mg/dL (0.2-1.0); Magnesium 2.7 mg/dL (1.8-2.4); Potassium 4.1 mmol/L (3.5-5.1); Protein, Total 6.7 g/dL (6.4-8.2); Thyroid Stimulating Hormone 0.523 uIU/mL (0.360-3.740)
[2021-07-01] MEDS ORDERED: ALBUTEROL 2.5 MG/3 ML NEB SOL NEB PRN (07:52)
[2021-07-01] MEDS ORDERED: IPRATROPIUM BROM 0.5MG/2.5ML NEB PRN (07:52)
[2021-07-01] MEDS: VALSARTAN 160 MG TAB PO SCH (08:21)
[2021-07-01] MEDS: DULERA 200/5 (MOMETASONE/FORMOTEROL) INHALER IH SCH ×2 (08:21→21:53)
[2021-07-01] MEDS: ENOXAPARIN 40 MG/0.4 ML SQ SCH (08:23)
[2021-07-01] MEDS ORDERED: INFLUENZA VACCINE (for 6+ mo) 0.5 ML DOSE IMVAC ONE (09:00)
[2021-07-01] MEDS ORDERED: PNEUMOCOCCAL VACCINE 0.5 ML IMVAC ONE (09:00)
[2021-07-01] MEDS ORDERED: ROPINIROLE HCL 0.25 MG TAB PO SCH ×2 (09:00→21:00)
[2021-07-01] MEDS: BUPROPRION HCL S.R. 150MG TAB PO SCH ×2 (11:00→21:48)
[2021-07-01] MEDS: BENZONATATE 100 MG CAP PO PRN ×2 (11:17→21:49)
--- NOTE | 2021-07-01 11:35 | P.CNS ---
Date of Consult: 07/01/21 Primary Care Provider: Dr. 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 and was prescribed some Zithromax did not help came into the hospital with hypoxemic hypercapnic respiratory failure in a little better still wheezing Allergies No Known Allergies Allergy (Verified 09/17/13 22:55) Home Medications: Atorvastatin Calcium [Lipitor] 20 mg PO DAILY 06/15/19 Gabapentin 600 mg PO BID 06/15/19 Candesartan Cilexetil 32 mg PO DAILY 07/24/19 Hydroxyzine HCl [Atarax] 25 mg PO BEDTIME 07/24/19 Ropinirole HCl [Requip] 0.5 mg PO DAILY 07/24/19 buPROPion HCL [Bupropion HCl Sr] 150 mg PO BID 07/24/19 Guaif/Dm [Robitussin Dm*] 5 ml PO Q6H PRN ucup 07/28/19 Roflumilast [Daliresp] 500 mcg PO DAILY #30 tablet 07/28/19 predniSONE [Deltasone] 10 mg PO BID #20 tab 07/28/19 - Past Medical/Surgical History Diabetic: No -: diverticulitis -: fibromyalgia -: htn, -: high cholesterol -: RLS -: Asthma -: zackary -: tubal ligation -: "pelvic prolapse surgery" Psychosocial/ Personal History: Lives at home with family, retired - Family History Father Medical History: Hypertension, Cancer Mother Medical History: Hypertension, Diabetes, Stroke Brother Medical History: Hypertension, Stroke - Social History Smoking Status: Former smoker Alcohol use: No CD- Drugs: No Caffeine use: Yes Place of Residence: Home Review of Systems General: Weakness Respiratory: Shortness of Breath Physical Examination Temp Pulse Resp BP Pulse Ox 98.4 F 82 22 H 138/65 92 07/01/21 08:00 07/01/21 08:21 07/01/21 08:00 07/01/21 08:21 07/01/21 08:00 General: Alert, In no apparent distress, Oriented x3 Respiratory: Expiratory wheezes Cardiovascular: No edema Capillary refill: <2 Seconds Gastrointestinal: Normal bowel sounds, Soft and benign Integumentary: No rashes, No breakdown Laboratory Data (last 24 hrs) 06/30/21 15:55: PT 12.1, INR 1.05 06/30/21 15:55: WBC 9.30, Hgb 14.7, Hct 43.7, Plt Count 333 06/30/21 15:55: Sodium 142, Potassium 4.3, BUN 8, Creatinine 1.01, Glucose 105, Magnesium 2.4, Total Bilirubin 0.4, AST 14 L, ALT 24, Alkaline Phosphatase 102 - Problems (1) Asthma exacerbation Current Visit: No Status: Acute Plan: Patient is 65 years of age admitted with acute respiratory distress hypoxemic mildly hypercapnic respiratory failure I suspect that she had underlying severe obstructive airways disease but she does not usually complain of shortness of breath and recently gotten worse of the past 4 to 5 weeks was treated with outpatient Zithromax still hypoxic continue with steroids bronchodilators labs all reviewed pending upon her oxygen level possible discharge tomorrow continue with high-dose steroids will need to go home on prednisone 90 mg twice daily with a tapering dose in addition to Symbicort or Advair follow-up with me in 1 to 2 weeks Qualifiers: Asthma severity: moderate
--- NOTE | 2021-07-01 11:44 | EKG ---
Test Date: 2021-06-30 Test Time: 16:04:24 Tax Lawyer: MARIO MEASUREMENT RESULTS: Intervals: Rate: 78 GA: 154 QRSD: 102 QT: 394 QTc: 449 [place]: P: 83 GA: 154 QRS: 92 T: 75 INTERPRETIVE STATEMENTS: Normal sinus rhythm Rightward axis Incomplete right bundle branch block Nonspecific ST abnormality Abnormal ECG Compared to ECG 07/24/2019 12:43:38 Right-axis deviation now present Incomplete right bundle-branch block now present ST (T wave) deviation now present Right bundle-branch block no longer present Electronically Signed On 07-01-21 11:44:07 CDT by Behzad Amor
[2021-07-01] MEDS ORDERED: ATORVASTATIN 20 MG TAB PO SCH (21:00)
[2021-07-02] MEDS: METHYLPREDNISOLONE 40 MG INJ IV SCH ×3 (01:13→17:07)
[2021-07-02 05:57] LABS: Albumin 3.4 g/dL (3.4-5.0); Bilirubin Total 0.2 mg/dL (0.2-1.0); Magnesium 2.5 mg/dL (1.8-2.4); Potassium 4.8 mmol/L (3.5-5.1); Protein, Total 6.2 g/dL (6.4-8.2)
--- NOTE | 2021-07-02 06:04 | P.PN ---
Subjective Date of Service: 07/02/21 Primary Care Provider: Dr. Leyva Chief Complaint: Asthma exacerbation Subjective: Improving Physical Examination - Vital Signs Temperature: 96.9 F Blood Pressure: 113/55 Pulse: 66 Respirations: 19 Pulse Ox (%): 99 Assessment & Plan Discharge Plan: Home Physician Review Additional Text: COVID: negative CXR: COMPARISON: Chest Single View dated 07/27/2019; Chest Single View dated 07/24/2019; Chest Single View dated 06/14/2019; Chest Single View dated 05/16/2019 FINDINGS: Lines: None. Lungs: No evidence of edema or pneumonia. Pleural: No significant pleural effusions or pneumothorax. Cardiac: The heart size is within normal limits. Bones: No acute fractures. IMPRESSION: No acute cardiopulmonary disease. Physical exam: General: Alert, In no apparent distress, Oriented x3 HEENT: Neck supple Respiratory: Diminished, Expiratory wheezes. Currently on 3 L per nasal cannula Cardiovascular: Regular rate/rhythm, Normal S1 S2 Gastrointestinal: Normal bowel sounds, No tenderness Musculoskeletal: No tenderness Integumentary: No rashes Neurological: Normal gait, Normal speech, Normal strength at 5/5 x4 extr, Normal tone, Normal affect Lymphatics: No axilla or inguinal lymphadenopathy Impression: Acute hypoxic respiratory failure secondary to asthma exacerbation Hypertension Hyperlipidemia Fibromyalgia/RLS Depression with anxiety Plan: Acute hypoxic respiratory failure secondary to asthma exacerbation: Patient stable this time. Currently on 3 L. Patient desires to go home. Will make arrangements for the patient to be discharged home with oxygen. Patient will need to continue with Advair, prednisone and albuterol at discharge. Patient to follow-up with pulmonology. Hypertension: Continue candesartan 32 mg daily. Hyperlipidemia: Continue Lipitor 20 mg daily Fibromyalgia/RLS: Continue with gabapentin 600 mg 1 pill twice daily. Continue Requip 0.5 mg daily Depression with anxiety: Continue with bupropion XL 150 mg 1 pill twice daily DVT PPX: Lovenox Code status: Full Discharge Plan: Home at discharge Time Spent Managing Pts Care (In Minutes): 55
[2021-07-02 06:11] LABS: Basophils % 0.2 % (0-1.3); Lymphocytes % 5.1 % (15.3-44.8); MPV 9.2 fL (7.6-11.3); RBC Red Blood Cell Count 4.19 M/uL (3.86-4.86)
[2021-07-02 07:20] LABS: Blood Morphology Comment NOT SEEN (NOT SEEN); Platelet Estimate ADEQ; White Blood Cell Scan OK (OK)
[2021-07-02] MEDS: VALSARTAN 160 MG TAB PO SCH (10:34)
[2021-07-02] MEDS: BUPROPRION HCL S.R. 150MG TAB PO SCH (10:35)
[2021-07-02] MEDS: ENOXAPARIN 40 MG/0.4 ML SQ SCH (10:35)
[2021-07-02] MEDS: GABAPENTIN 300 MG CAP PO SCH (10:35)
[2021-07-02] MEDS: DULERA 200/5 (MOMETASONE/FORMOTEROL) INHALER IH SCH (10:39)
[2021-07-02 13:42] VITALS: O2SAT 90
[2021-07-02 16:02] VITALS: BP 113/55; TEMP 96.9
--- NOTE | 2021-07-02 16:07 | P.DS ---
Admission Date: 06/30/21 Discharge Date: 07/02/21 Primary Care Provider: Dr. Leyva Disposition: ROUTINE DISCHARGE Discharge Condition: GOOD Reason for Admission: Shortness of breath Consultations: Pulmonary-Dr. Patton Procedures: COVID: negative CXR: COMPARISON: Chest Single View dated 07/27/2019; Chest Single View dated 2018; Chest Single View dated 06/14/2019; Chest Single View dated 05/16/2019 FINDINGS: Lines: None. Lungs: No evidence of edema or pneumonia. Pleural: No significant pleural effusions or pneumothorax. Cardiac: The heart size is within normal limits. Bones: No acute fractures. IMPRESSION: No acute cardiopulmonary disease. Medical Problem List: Acute hypoxic respiratory failure secondary to COPD exacerbation Hypertension Hyperlipidemia Fibromyalgia/RLS Depression with anxiety Brief History of Present Illness: 65-year-old female with history of fibromyalgia, asthma, hypertension, restless leg syndrome, hyperlipidemia presented to the emergency room and for shortness of breath. Patient reports increasing shortness of breath over the course of the last 4 to 6 weeks, patient has been on oral steroids and Zithromax from primary care provider but still not feeling well. Patient was evaluated in the emergency department labs are significant for ABG PO2 51.4 otherwise unremarkable chest x-ray unremarkable EKG without acute changes. Patient was given multiple rounds of nebulizer treatments and IV steroids in the emergency department but still with wheezing/respiratory distress, ED provider wishes to admit for asthma exacerbation. Hospital Course: Patient presented with acute hypoxic respiratory failure secondary to COPD exacerbation. Patient was admitted for treatment. Patient did well in the course of her stay. Patient was seen by pulmonology. Her condition improved. Patient still requires oxygen at discharge. Home oxygen will be arranged prior to discharge. Currently on 3 L per nasal cannula. Maintain oxygen saturation above 93%. At discharge patient will continue with prednisone 20 mg 1 pill twice daily for 7 days then 1 pill once daily for 7 days. The patient will be started on Advair 1 puff twice daily. Patient will also continue with albuterol 2 puffs 3 times a day as needed for shortness of breath. Recommend follow-up with pulmonology within 1 week to [place] hospitalization. Pulmonology will continue to help wean patient off oxygen. Patient with hypertension. Overall stable. At discharge patient will continue with her medication including candesartan 32 mg daily. Patient with hyperlipidemia. At discharge patient will continue with Lipitor 40 mg daily. Patient with depression with anxiety. At discharge she will continue with bupropion XL 150 mg 1 pill twice daily. Patient with fibromyalgia and restless leg syndrome. At discharge she will continue with gabapentin and Requip. Vital Signs/Physical Exam: Temp Pulse Resp BP Pulse Ox 96.9 F 66 19 113/55 L 99 07/02/21 16:02 07/02/21 16:02 07/02/21 16:02 07/02/21 16:02 07/02/21 16:02 General: Alert, In no apparent distress, Oriented x3, Cooperative HEENT: Atraumatic Neck: Supple Respiratory: Clear to auscultation bilaterally, Normal air movement, Other (Currently on 3 L) Cardiovascular: Normal pulses, Regular rate/rhythm Gastrointestinal: Normal bowel sounds, No tenderness, No masses, No rebound, No guarding Musculoskeletal: No erythema, No tenderness, No warmth Integumentary: No tenderness/swelling, No erythema, No warmth, No cyanosis Neurological: Normal speech, Normal strength at 5/5 x4 extr, Normal tone, Normal affect Laboratory Data at Discharge: WBC 19.20 K/uL (4.3-10.9) H D 07/02/21 05:25 Hgb 12.6 g/dL (12.0-15.0) 07/02/21 05:25 Hct 37.0 % (36.0-45.0) 07/02/21 05:25 Plt Count 326 K/uL (152-406) 07/02/21 05:25 PT 12.1 SECONDS (9.5-12.5) 06/30/21 15:55 INR 1.05 06/30/21 15:55 Sodium 139 mmol/L (136-145) 07/02/21 05:20 Potassium 4.8 mmol/L (3.5-5.1) 07/02/21 05:20 BUN 16 mg/dL (7-18) 07/02/21 05:20 Creatinine 0.88 mg/dL (0.55-1.3) 07/02/21 05:20 Glucose 151 mg/dL (74-106) H 07/02/21 05:20 Magnesium 2.5 mg/dL (1.8-2.4) H 07/02/21 05:20 Total Bilirubin 0.2 mg/dL (0.2-1.0) 07/02/21 05:20 AST 12 U/L (15-37) L 07/02/21 05:20 ALT 20 U/L (12-78) 07/02/21 05:20 Alkaline Phosphatase 78 U/L (45-117) 07/02/21 05:20 Triglycerides 64 mg/dL (<150) 07/01/21 05:19 Cholesterol 157 mg/dL (<200) 07/01/21 05:19 HDL Cholesterol 65 mg/dL (40-60) H 07/01/21 05:19 Cholesterol/HDL Ratio 2.42 07/01/21 05:19 Home Medications: Atorvastatin Calcium [Lipitor] 20 mg PO DAILY 06/15/19 Gabapentin 600 mg PO BID 06/15/19 Candesartan Cilexetil 32 mg PO DAILY 07/24/19 Ropinirole HCl [Requip] 0.5 mg PO DAILY 07/24/19 buPROPion HCL [Bupropion HCl Sr] 150 mg PO BID 07/24/19 Albuterol Sulfate [Proair Hfa] 2 puff IH TID PRN #1 [email or web address] 07/02/21 Fluticasone/Salmeterol [Advair 250-50 Diskus] 1 each IH BID #1 blst.w.dev 07/02/21 predniSONE [Prednisone*] 20 mg PO SEECOM #21 tab 07/02/21 New Medications: Fluticasone/Salmeterol [Advair 250-50 Diskus] 1 each IH BID #1 blst.w.dev predniSONE [Prednisone*] 20 mg PO SEECOM #21 tab Albuterol Sulfate [Proair Hfa] 2 puff IH TID PRN #1 hfa.[email or web address] PRN Reason: Shortness Of Breath Physician Discharge Instructions: Patient presented with acute hypoxic respiratory failure secondary to COPD exacerbation. Patient was admitted for treatment. Patient did well in the course of her stay. Patient was seen by pulmonology. Her condition improved. Patient still requires oxygen at discharge. Home oxygen will be arranged prior to discharge. Currently on 3 L per nasal cannula. Maintain oxygen saturation above 93%. At discharge patient will continue with prednisone 20 mg 1 pill twice daily for 7 days then 1 pill once daily for 7 days. The patient will be started on Advair 1 puff twice daily. Patient will also continue with albuterol 2 puffs 3 times a day as needed for shortness of breath. Recommend follow-up with pulmonology within 1 week to [place] hospitalization. Pulmonology will continue to help wean patient off oxygen. Patient with hypertension. Overall stable. At discharge patient will continue with her medication including candesartan 32 mg daily. Patient with hyperlipidemia. At discharge patient will continue with Lipitor 40 mg daily. Patient with depression with anxiety. At discharge she will continue with bupropion XL 150 mg 1 pill twice daily. Patient with fibromyalgia and restless leg syndrome. At discharge she will continue with gabapentin and Requip. Diet: AHA Activity: Ad darrel Followup: Stew Leyva MD [Primary Care Provider] - Time spent managing pt's care (in minutes): 55
[2021-07-02] MEDS ORDERED: FAMOTIDINE 20 MG TAB PO SCH (21:00)
== END 2021-07-02 17:40 | disposition home or self-care (01) | DRG 190 ==
LOC: ER 13:57 → ERHOLD 19:02 → 2ND 20:07
PROVIDERS: ADMIT Family Medicine; ATTEND Family Medicine
DX: J44.1 Chronic obstructive pulmonary disease with (acute) exacerbation (principal); J96.01 Acute respiratory failure with hypoxia; J96.02 Acute respiratory failure with hypercapnia; J45.901 Unspecified asthma with (acute) exacerbation; I10 Essential (primary) hypertension; F41.8 Other specified anxiety disorders; E78.5 Hyperlipidemia, unspecified; M79.7 Fibromyalgia; G25.81 Restless legs syndrome; Z79.899 Other long term (current) drug therapy; Z79.52 Long term (current) use of systemic steroids; Z98.51 Tubal ligation status; Z87.891 Personal history of nicotine dependence; Z20.822 Contact with and (suspected) exposure to COVID-19
CPT/HCPCS: 36415; 71045; 80048; 80053; 80061; 80076; 81003; 82805; 83605; 83735; 83880; 84145; 84439; 84443; 84484; 85025; 85610; 87040; 87804; 93005; 94010; 94640; 96365; 96375; 99285; J1650; J2920; J2930; J3475; J7606; U0003

== ENCOUNTER 2022-05-27 06:21 | Inpatient (IN) | payer OTHER ==
[2022-05-27 06:55] LABS: Absolute Lymphocytes (CBC) 2.1 K/uL (0.7-4.9); Hematocrit 37.9 % (36.0-45.0); Lymphocytes % 20.9 % (15.3-44.8); MCV 87.6 fL (80-100); MPV 8.2 fL (7.6-11.3); RBC Red Blood Cell Count 4.32 M/uL (3.86-4.86)
[2022-05-27] MEDS ORDERED: LEVALBUTEROL 1.25 MG/3 ML NEB ONE (07:23)
[2022-05-27] MEDS ORDERED: METHYLPREDNISOLONE 125 MG INJ ONE (07:23)
[2022-05-27] MEDS ORDERED: NA CHLORIDE 0.9% 500 ML ONE (07:24)
[2022-05-27] MEDS ORDERED: MAGNESIUM SULFATE 1 gm IVPB 1 GM/100 ML BAG IV ONE ×2 (07:24→08:28)
--- NOTE | 2022-05-27 07:27 | RAD REPORT ---
EXAM DESCRIPTION: RAD - Chest Single View - 05/27/2022 6:51 am CLINICAL HISTORY: Cough Chest pain. COMPARISON: Chest Single View dated 06/30/2021; Chest Single View dated 07/27/2019; Chest Single Vie w dated 07/24/2019; Chest Single View dated 06/14/2019 FINDINGS: Portable technique limits examination quality. The lungs are grossly clear. The heart is normal in size. No displaced fractures. Mild aortic atheros clerosis IMPRESSION: No acute intrathoracic process suspected.
[2022-05-27 07:38] LABS: SARS-CoV-2 Antigen Rapid Res Negative (Negative)
[2022-05-27 07:44] LABS: Potassium 3.8 mmol/L (3.5-5.1); Troponin High Sensitivity 8.1 pg/mL (<58.9)
--- NOTE | 2022-05-27 07:54 | ER ---
Nurse's Notes [facility] Name: Ivonne Pritchett Age: 66 yrs Sex: Female : 1955 Arrival Date: 05/27/2022 Time: 06:22 Bed 2 Private MD: Diagnosis: Moderate persistent asthma;Dyspnea;Hypoxemia Presentation: 05/27 06:47 Chief complaint: EMS states: pt. has been having SOB since yesterday. pt. used kd3 albuterol this morning but is not alleviating the SOB. pt. found with oxygen of 80 on arrival. neb treatment on route. Coronavirus screen: Vaccine status: Patient reports receiving the 2nd dose of the covid vaccine. moderna. Ebola Screen: No symptoms or risks identified at this time. Initial Sepsis Screen: Does the patient meet any 2 criteria? RR > 20 per min. HR > 90 bpm. Yes Does the patient have a suspected source of infection? No. Patient's initial sepsis screen is negative. Risk Assessment: Do you want to hurt yourself or someone else? Patient reports no desire to harm self or others. Onset of symptoms was May 27, 2022. 06:47 Method Of Arrival: EMS: [facility] kd3 06:47 Acuity: MARY 3 kd3 Triage Assessment: 06:56 General: Appears distressed, Behavior is cooperative, agitated. Pain: Denies pain. kd3 Neuro: Level of Consciousness is awake, alert, obeys commands, Oriented to person, place, time, situation. Cardiovascular: Patient's skin is warm and dry. Respiratory: Reports shortness of breath Airway is patent Trachea midline Respiratory effort is labored, Respiratory pattern is tachypnea Onset: The symptoms/episode began/occurred gradually, the patient has moderate shortness of breath. Historical: - Allergies: 06:56 NKA; kd3 - PMHx: 06:56 Asthma; Fibromyalgia; High Cholesterol; Hypertension; kd3 13:26 restless leg syndrome; kr3 - Immunization history:: Adult Immunizations up to date. - Social history:: Smoking status: Patient denies any tobacco usage or history of. - Family history:: not pertinent. - Hospitalizations: : No recent hospitalization is reported. Screenin:22 Abuse screen: Denies threats or abuse. Denies injuries from another. kd3 06:22 Nutritional screening: No deficits noted. Tuberculosis screening: No symptoms or risk kd3 factors identified. Fall Risk None identified. Assessment: 07:01 General: see triage. kd3 08:00 General: Appears distressed, uncomfortable, Behavior is calm, cooperative, appropriate kr3 for age. Cardiovascular: Rhythm is regular. Respiratory: Airway is patent Trachea midline Breath sounds with wheezes bilaterally. 09:00 Reassessment: No changes from previously documented assessment. Respiratory: Airway is kr3 patent Breath sounds with wheezes bilaterally. 10:19 Reassessment: Patient and/or family updated on plan of care and expected duration. Pain kr3 level reassessed. Respiratory: Airway is patent Breath sounds with wheezes bilaterally. 11:13 Reassessment: No changes from previously documented assessment. Patient and/or family kr3 updated on plan of care and expected duration. Pain level reassessed. 12:10 Reassessment: No changes from previously documented assessment. Patient and/or family kr3 updated on plan of care and expected duration. Pain level reassessed. Vital Signs: 06:47 BP 159 / 99; Pulse 105; Resp 25 S; Temp 98.3(O); Pulse Ox 97% on Nebulizer Mask; Weight kd3 90.72 kg; Height 5 ft. 4 in. (162.56 cm); 06:59 BP 159 / 99; Pulse 105; Resp 25 S; Pulse Ox 97% on Nebulizer Mask; Weight 90.72 kg; kd3 Height 5 ft. 4 in. (162.56 cm); 08:00 BP 140 / 64; Pulse 87; Resp 22; Pulse Ox 94% on Nebulizer Mask; kr3 09:00 BP 148 / 67; Pulse 90; Resp 22; Pulse Ox 98% on 3 lpm NC; kr3 10:00 BP 126 / 67; Pulse 71; Resp 20; Pulse Ox 95% on 3 lpm NC; kr3 11:13 BP 150 / 70; Pulse 77; Resp 20; Pulse Ox 97% on 3 lpm NC; kr3 12:10 BP 149 / 73; Pulse 71; Resp 20; Pulse Ox 96% on 3 lpm NC; kr3 06:59 Body Mass Index 34.33 (90.72 kg, 162.56 cm) kd3 ED Course: 06:22 Patient arrived in ED. mw2 06:22 Arm band placed on left wrist. kd3 06:26 Vladimir Franco MD is Attending Physician. rn 06:45 Inserted saline lock: 20 gauge in right antecubital area, using aseptic technique. kd3 06:46 Glo Calles RN is Primary Nurse. kd3 06:53 XRAY CXR (1 view) In Process Unspecified. EDMS 06:56 Triage completed. kd3 07:16 SARS RAPID Sent. kr3 07:21 Attending Physician role handed off by Vladimir Franco MD selena 07:21 Librado Dover MD is Attending Physician. selena 07:25 Primary Nurse role handed off by Glo Calles, SONIDO eb 07:34 Mary Bello RN is Primary Nurse. kr3 07:52 Inocente Ortez MD is Hospitalizing Provider. selena 08:17 Collins Houston is Hospitalizing Provider. selena 08:25 CT Chest For PE Angio In Process Unspecified. EDMS 08:50 Bed in low position. Call light in reach. Side rails up X 1. kr3 08:55 US Extremity Venous W Compression David In Process Unspecified. EDMS 11:03 Blood Culture Adult (2) Sent. ll1 13:23 No provider procedures requiring assistance completed. Patient admitted, IV remains in kr3 place. Administered Medications: 07:42 Drug: SOLU-Medrol (methylPrednisoLONE) 125 mg Route: IVP; Site: right antecubital; kr3 10:22 Follow up: Response: No adverse reaction kr3 07:42 Drug: Xopenex (levalbuterol) (3) 1.25 mg Route: Inhalation; kr3 09:00 Follow up: Response: No adverse reaction kr3 07:42 Drug: Magnesium Sulfate 1 grams Route: IVPB; Infused Over: 1 hrs; Site: right kr3 antecubital; 09:37 Follow up: Response: No adverse reaction; IV Status: Completed infusion; IV Intake: kr3 100ml 07:42 Drug: NS 0.9% 500 ml Route: IV; Rate: bolus; Site: right antecubital; kr3 09:36 Follow up: IV Status: Completed infusion; IV Intake: 500ml kr3 09:36 Follow up: Response: No adverse reaction kr3 08:15 Drug: predniSONE 40 mg Route: PO; kr3 09:00 Follow up: Response: No adverse reaction kr3 08:15 Drug: Zithromax (azithromycin) 500 mg Route: PO; kr3 09:00 Follow up: Response: No adverse reaction kr3 08:59 Drug: Rocephin (cefTRIAXone) 1 grams Route: IV; Rate: per protocol; Site: right kr3 antecubital; 09:35 Follow up: Response: No adverse reaction; IV Status: Completed infusion kr3 09:35 Drug: Magnesium Sulfate 1 grams Route: IVPB; Infused Over: 1 hrs; Site: right kr3 antecubital; 10:59 Follow up: Response: No adverse reaction; IV Status: Completed infusion; IV Intake: kr3 100ml Medication: 13:26 VIS not applicable for this client. kr3 Intake: 09:36 IV: 500ml; Total: 500ml. kr3 09:37 IV: 100ml; Total: 600ml. kr3 10:59 IV: 100ml; Total: 700ml. kr3 Outcome: 07:53 Decision to Hospitalize by Provider. selena 13:24 Admitted to Med/surg accompanied by tech, via wheelchair. kr3 13:24 Condition: stable 13:24 Instructed on the need for admit. 13:25 Patient left the ED. ll1 Signatures: Dispatcher [employer] EDMS Librado Dover MD MD cha Nieto, Roman, MD MD rn [place], MyKena mw2 Kala Granados Lynsay RN RN ll1 Glo Calles RN RN kd3 Mary Bello RN RN kr3 Corrections: (The following items were deleted from the chart) 10:14 08:00 BP 148 / 67; Pulse 90bpm; Resp 22bpm; Pulse Ox 98% RA; kr3 kr3 10:21 09:00 Reassessment: No changes from previously documented assessment. Patient and/or kr3 family updated on plan of care and expected duration. Pain level reassessed. Patient is alert, oriented x 3, equal unlabored respirations, skin warm/dry/pink. kr3 10:21 09:00 Respiratory: Breath sounds with wheezes bilaterally. kr3 kr3 10:56 10:14 BP 120 / 70; Pulse 89bpm; Resp 22bpm; Pulse Ox 95% RA; kr3 kr3 12:43 08:00 BP 140 / 64; Pulse 87bpm; Resp 22bpm; Pulse Ox 94% RA; [facility] 12:43 09:00 BP 148 / 67; Pulse 90bpm; Resp 22bpm; Pulse Ox 98% RA; [facility] 12:43 10:00 BP 126 / 67; Pulse 71bpm; Resp 20bpm; Pulse Ox 95% RA; [facility] 12:43 11:13 BP 150 / 70; Pulse 77bpm; Resp 20bpm; Pulse Ox 97% RA; [facility] 12:43 12:41 BP 149 / 73; Pulse 71bpm; Resp 20bpm; Pulse Ox 96% 3 lpm Nasal Cannula; [facility]
--- NOTE | 2022-05-27 07:54 | EDPHYS ---
Physician Documentation [facility] Name: Ivonne Pritchett Age: 66 yrs Sex: Female : 1955 Arrival Date: 05/27/2022 Time: 06:22 Bed 2 Private MD: ED Physician Librado Dover HPI: 05/27 06:57 This 66 yrs old Female presents to ER via EMS with complaints of Shortness Of Breath. rn 06:57 The patient has shortness of breath at rest. Onset: The symptoms/episode began/occurred rn 3 day(s) ago. Duration: The symptoms are continuous. The patient's shortness of breath is aggravated by exertion, light activity, talking. Associated signs and symptoms: Pertinent positives: non-productive cough, Pertinent negatives: fever, hemoptysis. Severity of symptoms: At their worst the symptoms were moderate in the emergency department the symptoms have improved. The patient has experienced similar episodes in the past. Pt reports hx of asthma, does not feel ill, called 911 for severe sob, feels better now after nebs. No chest pain. . Historical: - Allergies: 06:56 NKA; kd3 - PMHx: 06:56 Asthma; Fibromyalgia; High Cholesterol; Hypertension; kd3 13:26 restless leg syndrome; kr3 - Immunization history:: Adult Immunizations up to date. - Social history:: Smoking status: Patient denies any tobacco usage or history of. - Family history:: not pertinent. - Hospitalizations: : No recent hospitalization is reported. ROS: 06:57 Constitutional: Negative for fever, chills, and weight loss, Eyes: Negative for injury, rn pain, redness, and discharge, Neck: Negative for injury, pain, and swelling, Cardiovascular: Negative for chest pain, palpitations, and edema, Respiratory: + sob Abdomen/GI: Negative for abdominal pain, nausea, vomiting, diarrhea, and constipation, Back: Negative for injury and pain, MS/Extremity: Negative for injury and deformity, Skin: Negative for injury, rash, and discoloration, Neuro: Negative for headache, weakness, numbness, tingling, and seizure. Exam: 06:57 Constitutional: This is a well developed, well nourished patient who is awake, alert, rn moderate tachypnea Head/Face: Normocephalic, atraumatic. Cardiovascular: Tachycardic, regular Respiratory: + moderate tachypnea Abdomen/GI: Soft, non-tender Skin: Warm, dry MS/ Extremity: Pulses equal, no cyanosis. Neuro: Awake and alert, GCS 15 09:04 ECG was reviewed by the Attending Physician. [facility] 09:05 ECG was reviewed by the Attending Physician. [facility] Vital Signs: 06:47 BP 159 / 99; Pulse 105; Resp 25 S; Temp 98.3(O); Pulse Ox 97% on Nebulizer Mask; Weight kd3 90.72 kg; Height 5 ft. 4 in. (162.56 cm); 06:59 BP 159 / 99; Pulse 105; Resp 25 S; Pulse Ox 97% on Nebulizer Mask; Weight 90.72 kg; kd3 Height 5 ft. 4 in. (162.56 cm); 08:00 BP 140 / 64; Pulse 87; Resp 22; Pulse Ox 94% on Nebulizer Mask; kr3 09:00 BP 148 / 67; Pulse 90; Resp 22; Pulse Ox 98% on 3 lpm NC; kr3 10:00 BP 126 / 67; Pulse 71; Resp 20; Pulse Ox 95% on 3 lpm NC; kr3 11:13 BP 150 / 70; Pulse 77; Resp 20; Pulse Ox 97% on 3 lpm NC; kr3 12:10 BP 149 / 73; Pulse 71; Resp 20; Pulse Ox 96% on 3 lpm NC; kr3 06:59 Body Mass Index 34.33 (90.72 kg, 162.56 cm) kd3 MDM: 06:26 Patient medically screened. rn 07:54 Differential diagnosis: Anemia Anxiety Reaction asthma, Bronchitis CHF exacerbation, [facility] Chronic Obstructive Pulmonary Disease pneumonia, Pneumothorax pulmonary edema, Pulmonary Embolism reactive airway disease, Sepsis. Antibiotic administration: Rocephin and Zithromax given. The patient's Wells Deep Vein Thrombosis Score was calculated as follows: Heart Rate >100 BPM (1.5 Pts) Total Score: 0-2 Pts- Low Risk. The patient's pulmonary embolism risk score was calculated as follows: the patients heart rate is greater than 100 beats per minute (1.5 Pts) Total Score: 0-2 points. This patient was found to be at low risk for a pulmonary embolism by using the Well's assessment criteria. Immunization status: Pneumococcal vaccine: Influenza vaccine: Data reviewed: vital signs, nurses notes, lab test result(s), EKG, radiologic studies, CT scan, MRI, plain films. Data interpreted: surveillance system monitor: rate is 105 beats/min, rhythm is regular, Pulse oximetry: on room air is 97 %. Test interpretation: by ED physician or midlevel provider: ECG, plain radiologic studies. Counseling: I had a detailed discussion with the patient and/or guardian regarding: the historical points, exam findings, and any diagnostic results supporting the discharge/admit diagnosis, lab results, radiology results, the need for further work-up and treatment in the hospital. 05/27 06:31 Order name: BMP rn 05/27 06:31 Order name: Blood Culture Adult (2) rn 05/27 06:31 Order name: CBC with Diff rn 05/27 06:31 Order name: D-Dimer; Complete Time: 07:45 rn 05/27 06:31 Order name: NT PRO-BNP rn 05/27 06:31 Order name: Troponin HS rn 05/27 06:31 Order name: XRAY CXR (1 view); Complete Time: 07:45 rn 05/27 06:32 Order name: SARS RAPID; Complete Time: 07:45 rn 05/27 06:59 Order name: Manual Differential EDMS 05/27 07:19 Order name: CT Chest For PE Angio rn 05/27 07:45 Order name: US Extremity Venous W Compression David selena 05/27 06:31 Order name: EKG; Complete Time: 06:32 rn 05/27 06:31 Order name: Cardiac monitoring; Complete Time: 07:00 rn 05/27 06:31 Order name: EKG - Nurse/Tech; Complete Time: 07:02 rn 05/27 06:31 Order name: IV Saline Lock; Complete Time: 07:02 rn 05/27 06:31 Order name: Labs collected and sent; Complete Time: 07:02 rn 05/27 06:31 Order name: O2 Per Protocol; Complete Time: 07:00 rn 05/27 06:31 Order name: O2 Sat Monitoring; Complete Time: 07:00 rn EC:04 Rate is 84 beats/min. Rhythm is regular. QRS [place] is Normal. DC interval is normal. QRS selena interval is normal. QT interval is normal. No Q waves. T waves are Normal. Clinical impression: NSR w/ Non-specific ST/T Changes and No evidence of ischemia. Interpreted by me. Reviewed by me. 09:05 Rate is 82 beats/min. Rhythm is regular. QRS [place] is Normal. DC interval is normal. QRS selena interval is normal. QT interval is normal. No Q waves. T waves are Normal. No ST changes noted. Clinical impression: NSR w/ Non-specific ST/T Changes and No evidence of ischemia. Interpreted by me. Reviewed by me. Administered Medications: 07:42 Drug: SOLU-Medrol (methylPrednisoLONE) 125 mg Route: IVP; Site: right antecubital; kr3 10:22 Follow up: Response: No adverse reaction kr3 07:42 Drug: Xopenex (levalbuterol) (3) 1.25 mg Route: Inhalation; kr3 09:00 Follow up: Response: No adverse reaction kr3 07:42 Drug: Magnesium Sulfate 1 grams Route: IVPB; Infused Over: 1 hrs; Site: right kr3 antecubital; 09:37 Follow up: Response: No adverse reaction; IV Status: Completed infusion; IV Intake: kr3 100ml 07:42 Drug: NS 0.9% 500 ml Route: IV; Rate: bolus; Site: right antecubital; kr3 09:36 Follow up: IV Status: Completed infusion; IV Intake: 500ml kr3 09:36 Follow up: Response: No adverse reaction kr3 08:15 Drug: predniSONE 40 mg Route: PO; kr3 09:00 Follow up: Response: No adverse reaction kr3 08:15 Drug: Zithromax (azithromycin) 500 mg Route: PO; kr3 09:00 Follow up: Response: No adverse reaction kr3 08:59 Drug: Rocephin (cefTRIAXone) 1 grams Route: IV; Rate: per protocol; Site: right kr3 antecubital; 09:35 Follow up: Response: No adverse reaction; IV Status: Completed infusion kr3 09:35 Drug: Magnesium Sulfate 1 grams Route: IVPB; Infused Over: 1 hrs; Site: right kr3 antecubital; 10:59 Follow up: Response: No adverse reaction; IV Status: Completed infusion; IV Intake: kr3 100ml Disposition Summary: 05/27/22 07:53 Hospitalization Ordered Hospitalization Status: Observation selena [facility] selena Condition: Fair selena Problem: new selena Symptoms: have improved selena Bed/Room Type: Standard selena Provider: Collins Houston(05/27/22 08:17) selena Room Assignment: 204(05/27/22 12:34) dw Diagnosis - Moderate persistent asthma selena - Dyspnea selena - Hypoxemia selena Forms: - Medication Reconciliation Form selena - SBAR form selena Signatures: Dispatcher [employer] Sue Bush RN RN Librado Urrutia MD MD cha Nieto, Roman, MD MD rn Doucette, Kyli, RN RN kd3 Mary Bello RN RN kr3 Corrections: (The following items were deleted from the chart) 08:17 07:53 Inocente Ortez cha selena 12:34 07:53 selena cottrell
[2022-05-27] MEDS ORDERED: predniSONE 20 MG TAB ONE (08:15)
[2022-05-27] MEDS ORDERED: CEFTRIAXONE 1000 MG/VIAL ONE (08:16)
[2022-05-27] MEDS ORDERED: AZITHROMYCIN 250 MG TAB ONE (08:16)
--- NOTE | 2022-05-27 08:34 | RAD REPORT ---
EXAM DESCRIPTION: CT - Chest For Pe Angio - 05/27/2022 8:23 am CLINICAL HISTORY: Chest pain. Pulmonary embolism (PE) suspected, positive D-dimer COMPARISON: Chest For Pe Angio dated 06/17/2019 TECHNIQUE: CT angiogram of the pulmonary arteries was performed with MIP. All CT scans are performed using dose optimization technique as appropriate and may include automated exposure control or mA/KV adjustment according to patient size. FINDINGS: No evidence of pulmonary thromboembolism. No acute aortic finding demonstrated. The lungs are clear. No significant pericardial or pleural fluid. No concerning bony finding. 18 mm low-density nonspecific lesion right lobe of the liver. IMPRESSION: No evidence of pulmonary thromboembolism. No acute lung findings.
[2022-05-27 09:08] LABS: Blood Morphology Comment NOT SEEN (NOT SEEN); Platelet Estimate ADEQ
--- NOTE | 2022-05-27 09:28 | RAD REPORT ---
EXAM DESCRIPTION: US - Extrem Venous W Compress David - 05/27/2022 8:53 am CLINICAL HISTORY: PAIN Bilateral leg edema and swelling. COMPARISON: <Comparisons> TECHNIQUE: Real-time sonographic interrogation of the left and right lower extremity deep venous sys tems was performed. FINDINGS: Normal compressibility, flow augmentation, phasic flow and spontaneous flow is identified in both the left and right lower extremity deep venous systems. IMPRESSION: No sonographic evidence of left or right lower extremity deep venous thrombosis.
--- NOTE | 2022-05-27 11:59 | P.HP ---
Certification for Inpatient Patient admitted to: Inpatient With expected LOS: >2 Midnights Practitioner: I am a practitioner with admitting privileges, knowledge of patient current condition, hospital course, and medical plan of care. Services: Services provided to patient in accordance with Admission requirements found in Title 42 Section 412.3 of the Code of Federal Regulations Patient History Date of Service: 05/27/22 Reason for admission: Shortness of breath History of Present Illness: 66-year-old man with history of asthma presented to the emergency department with a complaint of sudden onset shortness of breath a couple of days ago. She states that his shortness of breath became progressively worse, did not respond to her inhalers. States that she was extremely short of breath this morning. Patient presented with oxygen saturation in the 80s. She was started on oxygen therapy in the ED, given nebulizer treatment and IV steroid with partial improvement. Patient still hypoxic after treatment in the ED. She is hospitalized for further management. Allergies No Known Allergies Allergy (Verified 09/17/13 22:55) Home Medications: Atorvastatin Calcium [Lipitor] 20 mg PO DAILY 06/15/19 Gabapentin 600 mg PO BID 06/15/19 Candesartan Cilexetil 32 mg PO DAILY 07/24/19 Ropinirole HCl [Requip] 0.5 mg PO DAILY 07/24/19 buPROPion HCL [Bupropion HCl Sr] 150 mg PO BID 07/24/19 Albuterol Sulfate [Proair Hfa] 2 puff IH TID PRN #1 hfa.aer.ad 07/02/21 Fluticasone/Salmeterol [Advair 250-50 Diskus] 1 each IH BID #1 blst.w.dev 07/02/21 predniSONE [Prednisone*] 20 mg PO SEECOM #21 tab 07/02/21 - Past Medical/Surgical History Diabetic: No -: diverticulitis -: fibromyalgia -: htn, -: high cholesterol -: RLS -: Asthma -: zackary -: tubal ligation -: "pelvic prolapse surgery" Psychosocial/ Personal History: Lives at home with family, retired - Family History Father -: Hypertension, Cancer Mother -: Hypertension, Diabetes, Stroke Brother -: Hypertension, Stroke - Social History Alcohol use: No CD- Drugs: No Caffeine use: Yes Review of Systems Other: She denied any fever or chills. She endorsed nonproductive cough, no chest pain, no abdominal pain and no fever. Except as documented, all other systems reviewed and negative. Physical Examination - Physical Exam General: Alert, In no apparent distress, Oriented x3 HEENT: Mucous membr. moist/pink, EOMI, Sclerae nonicteric Neck: Supple, JVD not distended Respiratory: Diminished (Bilateral), Other (Mild scattered rhonchi) Cardiovascular: No edema, Regular rate/rhythm, Normal S1 S2 Capillary refill: <2 Seconds Gastrointestinal: Normal bowel sounds, Soft and benign, Non-distended, No tenderness Musculoskeletal: No swelling, No tenderness, No warmth Integumentary: No rashes, No erythema, No cyanosis Neurological: Normal speech, Normal strength at 5/5 x4 extr, Cranial nerves 3-12 intact Lymphatics: No axilla or inguinal lymphadenopathy - Studies Laboratory Data (last 24 hrs) 05/27/22 06:35: WBC 10.00, Hgb 13.0, Hct 37.9, Plt Count 316 05/27/22 06:35: Sodium 139, Potassium 3.8, BUN 10, Creatinine 0.91, Glucose 120 H Assessment and Plan - Problems (Diagnosis) (1) Acute respiratory failure with hypoxia Current Visit: No Status: Acute (2) Asthma exacerbation Current Visit: No Status: Acute (3) Hypertension Current Visit: Yes Status: Acute - Plan Admit to the medical floor. Continue treatment for asthma exacerbation with IV Solu-Medrol, scheduled bronchodilators. Continue Advair. Wean off oxygen as tolerated. Chest x-ray/CTA thorax are clear, no upper respiratory infection. No indication for antibiotics at this time Reconcile and continue other home medications - Advance Directives Does patient have a Living Will: No Does patient have a Durable POA for Healthcare: No
[2022-05-27 13:16] VITALS: BMI 34.3
[2022-05-27] MEDS ORDERED: ACETAMINOPHEN 500 MG TAB PO PRN (13:16)
[2022-05-27] MEDS ORDERED: ONDANSETRON 4 MG/2 ML VIAL IV PRN (13:16)
[2022-05-27] MEDS: NA CHLORIDE 0.9% 1,000 ML IV SCH (13:37)
[2022-05-27] MEDS: METHYLPREDNISOLONE 40 MG INJ IV SCH ×2 (13:37→17:04)
[2022-05-27] MEDS: IPRATROPIUM BROM 0.5MG/2.5ML NEB SCH ×2 (14:15→21:30)
[2022-05-27] MEDS: ALBUTEROL 2.5 MG/3 ML NEB SOL NEB SCH ×2 (14:15→21:30)
[2022-05-27] MEDS: SALMETEROL IH SCH (21:00)
[2022-05-27] MEDS: FLUTICASONE IH SCH (21:00)
[2022-05-27] MEDS: HYDRALAZINE HCL 20 MG/ML VIAL IV PRN (21:37)
[2022-05-27] MEDS: GABAPENTIN 300 MG CAP PO SCH (21:38)
[2022-05-28] MEDS: METHYLPREDNISOLONE 40 MG INJ IV SCH ×4 (00:27→17:05)
[2022-05-28] MEDS: IPRATROPIUM BROM 0.5MG/2.5ML NEB SCH ×5 (02:45→21:45)
[2022-05-28] MEDS: ALBUTEROL 2.5 MG/3 ML NEB SOL NEB SCH ×5 (02:45→21:45)
--- NOTE | 2022-05-28 05:39 | EKG ---
Test Date: 2022-05-27 Test Time: 07:12:19 Radiology Director: PALAK MEASUREMENT RESULTS: Intervals: Rate: 82 W[place]: 148 QRSD: 114 QT: 394 QTc: 460 [place]: P: 84 W[place]: 148 QRS: 90 T: 80 INTERPRETIVE STATEMENTS: Normal sinus rhythm Rightward axis Incomplete right bundle branch block Borderline ECG Compared to ECG 06/30/2021 16:04:24 ST (T wave) deviation no longer present Electronically Signed On 05-28-22 05:38:01 CDT by Behzad Amor
[2022-05-28 06:12] LABS: Absolute Lymphocytes (CBC) 0.9 K/uL (0.7-4.9); Hematocrit 37.1 % (36.0-45.0); Lymphocytes % 7.4 % (15.3-44.8); MCV 89.2 fL (80-100); MPV 8.4 fL (7.6-11.3); RBC Red Blood Cell Count 4.16 M/uL (3.86-4.86)
[2022-05-28 06:35] LABS: Magnesium 2.7 mg/dL (1.8-2.4); Phosphorus 2.3 mg/dL (2.5-4.9); Potassium 4.2 mmol/L (3.5-5.1); Thyroid Stimulating Hormone 0.43 uIU/mL (0.360-3.740)
[2022-05-28] MEDS: FLUTICASONE IH SCH ×2 (09:00→20:26)
[2022-05-28] MEDS: SALMETEROL IH SCH ×2 (09:00→20:26)
[2022-05-28] MEDS: ENOXAPARIN 40 MG/0.4 ML SQ SCH (09:09)
[2022-05-28] MEDS: GABAPENTIN 300 MG CAP PO SCH ×2 (09:09→20:25)
[2022-05-28] MEDS: ATORVASTATIN 20 MG TAB PO SCH (09:09)
[2022-05-28] MEDS: POTASS/SODIUM PHOSPHATE 1 PKT POWD.PACK PO SCH ×2 (09:09→10:06)
[2022-05-28] MEDS: NA CHLORIDE 0.9% 1,000 ML IV SCH (09:10)
[2022-05-28 12:56] LABS: Urine Bacteria <20 /HPF (<20); Urine Mucus 3+ /HPF (None Seen); Urine RBC <5 /HPF (None Seen)
[2022-05-28 12:57] LABS: Urine Bilirubin NEGATIVE (Negative); Urine Blood Trace (Negative); Urine Clarity Clear (Clear); Urine Color Yellow (Yellow); Urine Glucose NEGATIVE (Negative); Urine Protein TRACE (Negative); Urine Urobilinogen Normal (Normal); Urine pH 5.5 (5.0-7.0)
--- NOTE | 2022-05-28 13:57 | P.PN ---
Subjective Date of Service: 05/28/22 Chief Complaint: Shortness of breath Patient reporting some improvement in her shortness of breath but still has significant shortness of breath especially with exertion. She is currently requiring 2 L oxygen by nasal cannula. No recorded fever. Physical Examination - Vital Signs Temperature: 97.8 F Blood Pressure: 137/60 Pulse: 96 Respirations: 18 Pulse Ox (%): 93 Assessment And Plan - Current Problems (Diagnosis) (1) Acute respiratory failure with hypoxia Current Visit: No Status: Acute (2) Asthma exacerbation Current Visit: No Status: Acute (3) Hypertension Current Visit: Yes Status: Acute - Plan Physical Exam General: Alert, In no apparent distress, Oriented x3 HEENT: Mucous membr. moist/pink. Neck: JVD not distended Respiratory: Diminished bilaterally, Mild scattered rhonchi. Cardiovascular: No edema, Regular rate/rhythm, Normal S1 S2 Gastrointestinal: Normal bowel sounds, Soft and benign, Non-distended, No tenderness Musculoskeletal: No swelling, No tenderness. Integumentary: No rashes, No erythema, No cyanosis Neurological: Normal strength at 5/5 x4 extr. Plan: She has slow response to treatment. Continue IV Solu-Medrol, scheduled bronchodilators. Continue Advair. Wean off oxygen as tolerated. Chest x-ray/CTA thorax are clear, no upper respiratory infection. No indication for antibiotics at this time Consult pulmonary to assist with management.
[2022-05-28] MEDS ORDERED: ROPINIROLE HCL 0.25 MG TAB PO SCH (21:00)
[2022-05-29] MEDS: METHYLPREDNISOLONE 40 MG INJ IV SCH ×3 (01:02→11:02)
[2022-05-29] MEDS: IPRATROPIUM BROM 0.5MG/2.5ML NEB SCH ×3 (02:10→15:50)
[2022-05-29] MEDS: ALBUTEROL 2.5 MG/3 ML NEB SOL NEB SCH ×3 (02:10→15:50)
[2022-05-29] MEDS: NA CHLORIDE 0.9% 1,000 ML IV SCH ×2 (05:16→08:53)
[2022-05-29 06:15] LABS: Absolute Lymphocytes (CBC) 0.9 K/uL (0.7-4.9); Hematocrit 39.8 % (36.0-45.0); Lymphocytes % 5.6 % (15.3-44.8); MCV 88.4 fL (80-100); MPV 8.9 fL (7.6-11.3)
[2022-05-29 06:21] LABS: Potassium 4.7 mmol/L (3.5-5.1)
[2022-05-29] MEDS: FLUTICASONE IH SCH (08:54)
[2022-05-29] MEDS: GABAPENTIN 300 MG CAP PO SCH (08:54)
[2022-05-29] MEDS: SALMETEROL IH SCH (08:54)
[2022-05-29] MEDS: ENOXAPARIN 40 MG/0.4 ML SQ SCH (08:54)
[2022-05-29] MEDS: ATORVASTATIN 20 MG TAB PO SCH (08:54)
[2022-05-29] MEDS ORDERED: MONTELUKAST 10 MG TAB PO SCH (09:00)
[2022-05-29] MEDS ORDERED: VALSARTAN 160 MG TAB PO SCH (09:00)
[2022-05-29] MEDS ORDERED: BUPROPION HCL 150 MG PO SCH (09:00)
[2022-05-29] MEDS ORDERED: BUPROPRION HCL S.R. 150MG TAB PO SCH (09:00)
[2022-05-29] MEDS ORDERED: CANDESARTAN CILEXETIL 32 MG PO SCH (09:00)
[2022-05-29] MEDS: HYDRALAZINE HCL 20 MG/ML VIAL IV PRN (11:52)
[2022-05-29] MEDS ORDERED: ARFORMOTEROL TARTRATE 15 MCG/2 ML VIAL.NEB NEB SCH (12:25)
[2022-05-29] MEDS ORDERED: FUROSEMIDE 20 MG/ 2ML VIAL IV ONE (12:25)
[2022-05-29] MEDS ORDERED: AZITHROMYCIN 250 MG TAB PO SCH (12:29)
--- NOTE | 2022-05-29 12:31 | P.CNS ---
Date of Consult: 05/29/22 Reason for Consult: Respiratory distress Chief Complaint: Shortness of breath History of Present Illness: Patient is 66 years of age well-known to me with a history of obstructive airways disease doing well for the past year uses Symbicort still has some inte rmittent shortness of breath came in suddenly became worse more tightness wheezing hypoxemia still wheezing and tight Allergies No Known Allergies Allergy (Verified 09/17/13 22:55) Home Medications: Atorvastatin Calcium [Lipitor] 20 mg PO DAILY 06/15/19 Gabapentin 600 mg PO BID 06/15/19 Candesartan Cilexetil 32 mg PO DAILY 07/24/19 Ropinirole HCl [Requip] 0.5 mg PO BEDTIME 07/24/19 buPROPion HCL [Bupropion HCl Sr] 300 mg PO DAILY 07/24/19 Albuterol Sulfate [Proair Hfa] 2 puff IH TID PRN #1 hfa.aer.ad 07/02/21 Montelukast [Singulair*] 1 tab PO DAILY 05/27/22 - Past Medical/Surgical History Diabetic: No -: diverticulitis -: fibromyalgia -: htn, -: high cholesterol -: RLS -: Asthma -: zackary -: tubal ligation -: "pelvic prolapse surgery" Psychosocial/ Personal History: Lives at home with family, retired - Family History Father Medical History: Hypertension, Cancer Mother Medical History: Hypertension, Diabetes, Stroke Brother Medical History: Hypertension, Stroke - Social History Smoking Status: Former smoker Alcohol use: No CD- Drugs: No Caffeine use: Yes Place of Residence: Home Review of Systems 10-point ROS is otherwise unremarkable General: Weakness Respiratory: Cough, Shortness of Breath Physical Examination Temp Pulse Resp BP Pulse Ox 97 F 94 H 20 173/86 H 95 05/29/22 12:00 05/29/22 12:00 05/29/22 12:00 05/29/22 12:00 05/29/22 12:00 General: Alert, Oriented x3, Moderate distress Respiratory: Friction rub, Expiratory wheezes Cardiovascular: Regular rate/rhythm, Normal S1 S2 Gastrointestinal: Normal bowel sounds, Soft and benign - Problems (1) Asthma exacerbation Current Visit: No Status: Acute Plan: Patient is 66 years of age with a history of obstructive airways disease admitted with an exacerbation hypoxemia no evidence of thromboembolism chest x- ray is clear hyperinflated patient is still hypoxic I will of low-dose Lasix continue with scheduled bronchodilators and steroid patient's blood pressure is elevated add Zithromax for anti-inflammatory purposes DC IV fluids consider a triple agent bronchodilator she has persistent symptoms Qualifiers: Asthma severity: severe
--- NOTE | 2022-05-29 15:09 | P.DS ---
Admission Date: 05/27/22 Discharge Date: 05/29/22 Disposition: [facility] Discharge Condition: GOOD Reason for Admission: Shortness of breath Hospital Course: Is a 66-year-old female known past medical history of asthma who was admitted for shortness of breath. She has been seen by pulmonary during her last 2 admissions and she was found to have significant obstructive disease. Impression from her last discharge was more consistent with COPD exacerbation. During this admission, she had a negative chest x-ray. She has been placed on azithromycin and systemic corticosteroids. She has upper airway wheezing but the rest of her lung auscultation was clear. Patient wants to go home today. She will be discharged on steroid and azithromycin. Vital Signs/Physical Exam: Temp Pulse Resp BP Pulse Ox 97 F 94 H 20 173/86 H 95 05/29/22 12:00 05/29/22 12:32 05/29/22 12:00 05/29/22 12:32 05/29/22 12:00 General: In no apparent distress, Cooperative, Other HEENT: Atraumatic, Normocephalic Respiratory: Clear to auscultation bilaterally, Other (Upper airway wheezing) Cardiovascular: No edema, Normal pulses, Regular rate/rhythm, Normal S1 S2 Musculoskeletal: No clubbing, No swelling, No contractures, No erythema Neurological: Normal speech, Sensation intact Laboratory Data at Discharge: WBC 15.10 K/uL (4.3-10.9) H D 05/29/22 05:28 Hgb 13.2 g/dL (12.0-15.0) 05/29/22 05:28 Hct 39.8 % (36.0-45.0) 05/29/22 05:28 Plt Count 296 K/uL (152-406) 05/29/22 05:28 Sodium 139 mmol/L (136-145) 05/29/22 05:28 Potassium 4.7 mmol/L (3.5-5.1) 05/29/22 05:28 BUN 17 mg/dL (7-18) 05/29/22 05:28 Creatinine 0.77 mg/dL (0.55-1.3) 05/29/22 05:28 Glucose 145 mg/dL (74-106) H 05/29/22 05:28 Phosphorus 2.3 mg/dL (2.5-4.9) L 05/28/22 05:37 Magnesium 2.7 mg/dL (1.8-2.4) H 05/28/22 05:37 Home Medications: Atorvastatin Calcium [Lipitor] 20 mg PO DAILY 06/15/19 Gabapentin 600 mg PO BID 06/15/19 Candesartan Cilexetil 32 mg PO DAILY 07/24/19 Ropinirole HCl [Requip] 0.5 mg PO BEDTIME 07/24/19 buPROPion HCL [Bupropion HCl Sr] 300 mg PO DAILY 07/24/19 Albuterol Sulfate [Proair Hfa] 2 puff IH TID PRN #1 hfa.aer.ad 07/02/21 Montelukast [Singulair*] 1 tab PO DAILY 05/27/22 Albuterol Neb [Proventil 0.083% Neb Soln] 2.5 mg NEB [id number] amp 05/29/22 Arformoterol Tartrate [Brovana] 15 mcg NEB BIDRESP vial.neb 05/29/22 Azithromycin Tab [Zithromax*] 500 mg PO DAILY #5 tab 05/29/22 Buproprion S.r. [Wellbutrin Sr*] 300 mg PO DAILY tab 05/29/22 predniSONE [Prednisone] 50 mg PO DAILY 5 Days 05/29/22 New Medications: predniSONE [Prednisone] 50 mg PO DAILY 5 Days Azithromycin Tab [Zithromax*] 500 mg PO DAILY #5 tab Followup: Stew Leyva MD [Primary Care Provider] -
[2022-05-29 15:31] VITALS: BP 152/71; TEMP 97.6
--- NOTE | 2022-05-29 15:43 | EKG ---
Test Date: 2022-05-27 Test Time: 07:13:13 Mold Capper Helper: PALAK MEASUREMENT RESULTS: Intervals: Rate: 84 [place]: 148 QRSD: 116 QT: 406 QTc: 479 [place]: P: 80 [place]: 148 QRS: 89 T: 72 INTERPRETIVE STATEMENTS: Normal sinus rhythm with sinus arrhythmia Incomplete right bundle branch block Borderline ECG Compared to ECG 05/27/2022 07:12:19 Right-axis deviation no longer present Electronically Signed On 05-29-22 15:40:28 CDT by Gordon Rosenberg
[2022-05-29 16:30] VITALS: O2SAT 94
== END 2022-05-29 16:36 | disposition home health service (06) | DRG 202 ==
LOC: ER 06:21 → ERHOLD 11:39 → 2ND 13:05
PROVIDERS: ADMIT Internal Medicine; ATTEND Internal Medicine
DX: J45.901 Unspecified asthma with (acute) exacerbation (principal); J96.01 Acute respiratory failure with hypoxia; M79.7 Fibromyalgia; I10 Essential (primary) hypertension; Z79.52 Long term (current) use of systemic steroids; Z98.51 Tubal ligation status; Z90.49 Acquired absence of other specified parts of digestive tract; Z87.891 Personal history of nicotine dependence; Z79.899 Other long term (current) drug therapy; Z20.822 Contact with and (suspected) exposure to COVID-19
CPT/HCPCS: 36415; 71045; 71275; 80048; 81001; 83735; 83880; 84100; 84443; 84484; 85025; 85379; 87040; 87811; 93005; 93970; 94640; 94760; 96365; 96366; 96375; 99285; J0360; J1650; J1940; J2920; J2930; J3475; J7030; J7040; J7512; J7614; Q9967